=== PATIENT | male | born 1970 | race Caucasian/White ===

== ENCOUNTER 2020-04-11 23:54 | Emergency (ER) | payer OTHER ==
[~2020-04-11] VITALS: Ht 177.8 cm; Wt 95.2 kg
--- OUTSIDE RECORDS SUMMARY | ~2020-04-11 | XMS | Encounter Summary ---
Demographics + + + | Address | [address] | | | [place] [address] | + + + | Home Phone | | + + + | Preferred Language | Unknown | + + + | Marital Status | Single | + + + | Nondenominational Affiliation | UNK | + + + | Race | White | + + + | Ethnic Group | Not or | + + + Author + + + | Author | [facility] | + + + | Organization | [facility] | + + + | Address | Unknown | + + + | Phone | Unavailable | + + + Care Team Providers + +------+ + | Care Director Of Hotel Name | Role | Phone | + +------+ + | No Pcp Per Patient | PCP | Unavailable | + +------+ + Encounter Details +--------+ + + + + | Date | Type | Department | Care Team | Description | +--------+ + + + + | 07/25/ | Procedure | Dermatology | | | | 2008 | | Phototherapy at [facility] | | | | | | [address] | | | | | | [facility] | | | | | | and Healing, | | | | | | Building | | | | | | Floor [place], [place] | | | | | | [address] | | | | | | [phone] | | | +--------+ + + + + Social History + +-------+ +--------+------+ | Tobacco Use | Types | Packs/Day | Years | Date | | | | | Used | | + +-------+ +--------+------+ | Never Assessed | | | | | + +-------+ +--------+------+ + + + | Sex Assigned at | Date Recorded | | | | + + + | Not on file | | + + + documented as of this encounter Progress Robert Yanes Cna, Keri - 07/25/2008 4:01 PM PSTFormatting of this note might be different f rom the original. PHOTOTHERAPY DOC FLOWSHEET RESPONSES [[id number]][ 07/25/2008 Orientation Time 3:56 PM MD Orders 06/09/08 Start NBUVB @ 75mj increase 50mj each treatment to a maximum of 1000mj. Two times a week apply sunscreen to face per Dr. Zaragoza Ttl # of Treatments 11 DIAGNOSIS psoriasis Site #1 body Type NBUVB Prescr Dose 525mj Actual Dose 527mj Predict Time 1:46 Actual Time 1:15 On Stool none New Meds no Sleep OK YES Psoralen Taken? n/a PUVA Med Nausea NA - NOT APPLICABLE Erythema Grade 0 Blisters NO Itching NO Pain 0 MD Notified NA - NO REACTION Goggles YES Oral/Topical Meds NO Suntan Lotion face Shield none Nurse dds Nurse #2 Comments documented in this encounter Plan of Treatment Not on filedocumented as of this encounter Visit Diagnoses + + | Diagnosis | + + | Other psoriasis | + + documented in this encounter"
--- OUTSIDE RECORDS SUMMARY | ~2020-04-11 | XMS | Encounter Summary ---
Demographics + + + | Address | [address] | | | [place] [address] | + + + | Home Phone | | + + + | Preferred Language | Unknown | + + + | Marital Status | Single | + + + | Islam Affiliation | UNK | + + + | Race | White | + + + | Ethnic Group | Not or | + + + Author + + + | Author | [facility] | + + + | Organization | [facility] | + + + | Address | Unknown | + + + | Phone | Unavailable | + + + Care Team Providers + +------+ + | Care Advertising Traffic Manager Name | Role | Phone | + +------+ + | No Pcp Per Patient | PCP | Unavailable | + +------+ + Reason for Visit + +--------+ + | Reason | Onset | Comments | | | Date | | + +--------+ + | Phototherapy | 10/18/ | NBUVB | | | 2010 | | + +--------+ + Encounter Details +--------+ + + + + | Date | Type | Department | Care Team | Description | +--------+ + + + + | 10/18/ | Procedure | Dermatology | Yuniel Fierro, | Phototherapy (NBUVB) | | 2010 | | Phototherapy at [facility] | ,PhD Juan | | | | | [address] | Allergy Asthma | | | | | [facility] | Dermatology [address] | | | | | and Healing, | [facility] | | | | | | [place] [address] | | | | | [place], [place] | [phone] | | | | | [address] | | | | | | [phone] | | | +--------+ + + + + Social History + +-------+ +--------+------+ | Tobacco Use | Types | Packs/Day | Years | Date | | | | | Used | | + +-------+ +--------+------+ | Never Smoker | | | | | + +-------+ +--------+------+ + +---+---+---+ | Smokeless Tobacco: | | | | | Former User | | | | + +---+---+---+ + + +---------+ + | Alcohol Use | Drinks/Week | oz/Week | Comments | + + +---------+ + | Not Asked | | | | + + +---------+ + + + + | Sex Assigned at | Date Recorded | | | | + + + | Not on file | | + + + documented as of this encounter Progress Adeline Shultz MA - 10/18/2010 8:14 AM PDTPhototherapy Visit Record: Phototherapy Orientation: NO Time of Treatment: 0757 Physician Orders: 09/03/10 start NBUVB @ 400mj increase 50mj each tx to a maximum of 1000mj. Sunscreen on face and pt stand on stool per Dr. Zaragoza Total # of Treatments: 73 DIAGNOSIS: psoriasis Treatment Site #1: body Phototherapy Type: NBUVB Prescr Dose(j or mj)_ _._ _ _: 1000mj Actual Dose(j or mj)_ _._ _ _: 1002mj Predicted Time (min:sec): 4:07mins Actual Time (min:sec): 2:28min Dosage on stool: 1005mj Additional Information: New meds since last visit: no Sleep OK after treat: YES Psoralen oral/topical med taken?: n/a PUVA med nausea: NA - NOT APPLICABLE Erythema Grade After Last Treatment: No erythema Pt c/o blisters after last treat: NO Pt c/o itching after last treat: NO Pain assess after last treat: 0 MD notified of adverse reaction: NA - NO REACTION Goggles in use: YES Oral/topical meds taken: NO Sunscreen applied: face Shield placed over sites: Patient may shield with brown bag over head instead of sunscreen Nurse: Dev documented in this e ncounter Plan of Treatment Not on filedocumented as of this encounter Procedures + +--------+ + + + | Procedure Name | Priori | Date/Time | Associated Diagnosis | Comments | | | ty | | | | + +--------+ + + + | PHOTOTHERAPY (UVA, | Routin | 10/18/2010 | Psoriasis | | | UVB, NBUVB) - BACK | e | | | | | OFFICE | | | | | + +--------+ + + + documented in this encounter Visit Diagnoses + + | Diagnosis | + + | Psoriasis Other psoriasis | + + documented in this encounter"
--- OUTSIDE RECORDS SUMMARY | ~2020-04-11 | XMS | Encounter Summary ---
Demographics + + + | Address | [address] | | | [place] [address] | + + + | Home Phone | | + + + | Preferred Language | Unknown | + + + | Marital Status | Single | + + + | Protestant Affiliation | UNK | + + + | Race | White | + + + | Ethnic Group | Not or | + + + Author + + + | Author | [facility] | + + + | Organization | [facility] | + + + | Address | Unknown | + + + | Phone | Unavailable | + + + Care Team Providers + +------+ + | Care Nuclear Technician Name | Role | Phone | + +------+ + | No Pcp Per Patient | PCP | Unavailable | + +------+ + Reason for Visit + +--------+ + | Reason | Onset | Comments | | | Date | | + +--------+ + | Prior Authorization | 06/19/ | Clobex | | Request | 2007 | | + +--------+ + Encounter Details +--------+ + + + + | Date | Type | Department | Care Team | Description | +--------+ + + + + | 06/19/ | Telephone | Dermatology | Jeyson Zaragoza, | Prior Authorization | | 2007 | | Medical at [facility] [address] | MD | Request (Clobex ) | | | | [facility] | | | | | | for Health and | | | | | | [facility], [address], | | | | | | 16th Floor | | | | | | [place], [place] | | | | | | [address] | | | | | | [phone] | | | +--------+ + + + [...] + + documented as of this encounter Miscellaneous Notes Telephone Encounter - Lakisha Isidro - 06/19/2008 3:55 PM PSTPa response routed to Dr. Zaragoza Rx: Clobex Approved Telephone Encounter - Mary Black - 06/19/2008 1:25 PM PSTPA response recv'd via fax Drug: Clobex *fax rtd to naldo inluis manuel documented in this encounter Plan of Treatment Not on filedocumented as of this encounter Visit Diagnoses Not on filedocumented in this encounter"
--- OUTSIDE RECORDS SUMMARY | ~2020-04-11 | XMS | Encounter Summary ---
Demographics + + + | Address | [address] | | | [place] [address] | + + + | Home Phone | | + + + | Preferred Language | Unknown | + + + | Marital Status | Single | + + + | Taoism Affiliation | UNK | + + + | Race | White | + + + | Ethnic Group | Not or | + + + Author + + + | Author | [facility] | + + + | Organization | [facility] | + + + | Address | Unknown | + + + | Phone | Unavailable | + + + Care Team Providers + +------+ + | Care Heel Washer Stringing Machine Operator Name | Role | Phone | + +------+ + | No Pcp Per Patient | PCP | Unavailable | + +------+ + Reason for Visit + + + | Reason | Comments | + + + | Phototherapy | NBUVB Oreintation | + + + Encounter Details +--------+---------+ + + + | Date | Type | Department | Care Team | Description | +--------+---------+ + + + | 06/12/ | Office | Dermatology | | Other Psoriasis | | 2007 | Visit | Phototherapy at [facility] | | (Primary Dx) | | | | [address] | | | | | | [facility] | | | | | | and Healing, | | | | | | Building | | | | | | Floor [place], [place] | | | | | | [address] | | | | | | [phone] | | | +--------+---------+ + + + Social History + +-------+ [...] + documented as of this encounter Progress Notes Giselle Ro - 06/12/2008 2:23 PM PSTFormatting of this note might be different fro m the original. Patient/Family Readiness to Learn: The following pertains to: patient. Accurately explains reasons for visit and accurately relates medical history: yes. Accurately describes the likely alteration in self-care routines/abilities resulting from t reatment: yes. Able to provide names and reasons for taking current medications and dosages: yes. Able to follow proposed treatment plan for diet, activity and/or medication without difficu lty: yes. Learning Needs: stable Reviewed Prescriptions:Phototherapy Treatment History: MTX and STEROIDS Muscle Strength Deficits:no Chronic Conditions:none Phototherapy in Past:NBUVB Medications/OTC:Topical: Clobex Physical/Sensory Issues:none Barriers: None identified. Referral To: No referral required. Preferred Learning Method: Verbal , Written and Visual/demonstration. Teaching: Care instructions reviewed: yes, Medication regimen reviewed: yes, Written instru ctions given and explained: yes and Demonstrated procedure: yes. Patient/Family Response to Teaching: Verbalizes understanding of information/instructions given: Yes. Demonstrates ability to perform required procedure: Yes. Additional Notes: Patient chose to wait and see how phototherapy worked before starting enbrel. Will re-asse ss at apt with Dr. Zaragoza PHOTOTHERAPY DOC FLOWSHEET RESPONSES [[id number]][ 06/12/2008 Orientation YES Time 1:56 PM MD Orders 06/09/08 Start NBUVB @ 75mj increase 50mj each treatment to a maximum of 1000mj. Two times a week apply sunscreen to face per Dr. Zaragoza Ttl # of Treatments 1 DIAGNOSIS Psoriasis Site #1 Body Type NBUVB Prescr Dose 75mj Actual Dose 79mj Predict Time 0:14sec Actual Time 0:12sec On Stool none Psoralen Taken? NA PUVA Med Nausea NA - NOT APPLICABLE MD Notified NA - NO REACTION Goggles YES Oral/Topical Meds NO Suntan Lotion face Shield none Nurse [email or web address] documented in this en counter Miscellaneous Notes Scan - Other, Faculty - 08/20/2008 3:14 PM PST can - Nicolasa, Faculty - 08/20/2008 3:14 PM PST Electronica lly signed by Linda Corbin In at 08/20/2008 3:14 PM PSTScan - Nicolasa, Faculty - 08/20 3:14 PM PST P STdocumented in this encounter Plan of Treatment Not on filedocumented as of this encounter Visit Diagnoses + + | Diagnosis | + + | Other psoriasis - Primary | + + documented in this encounter"
--- OUTSIDE RECORDS SUMMARY | ~2020-04-11 | XMS | Encounter Summary ---
Demographics + + + | Address | [address] | | | [place] [address] | + + + | Home Phone | | + + + | Preferred Language | Unknown | + + + | Marital Status | Single | + + + | Pentecostalism Affiliation | UNK | + + + | Race | White | + + + | Ethnic Group | Not or | + + + Author + + + | Author | [facility] | + + + | Organization | [facility] | + + + | Address | Unknown | + + + | Phone | Unavailable | + + + Care Team Providers + +------+ + | Care Gravedigger Name | Role | Phone | + +------+ + | No Pcp Per Patient | PCP | Unavailable | + +------+ + Reason for Visit + +--------+ + | Reason | Onset | Comments | | | Date | | + +--------+ + | Phototherapy | 09/03/ | NBUVB | | | 2010 | | + +--------+ + Encounter Details +--------+ + + + + | Date | Type | Department | Care Team | Description | +--------+ + + + + | 09/03/ | Procedure | Dermatology | Jeyson Zaragoza, | Phototherapy (NBUVB) | | 2010 | | Phototherapy at [facility] | | | | | | [address] | | | | | | [facility] | | | | | | and Healing, | | | | | | | | | | | | [place], [place] | | | | | | [address] | | | | | | [phone] | | | +--------+ + + + [...] documented as of this encounter Progress Notes Adeline Pacheco MA - 09/03/2010 1:32 PM PSTPhototherapy Visit Record: Additional Information: Phototherapy Visit Record: Phototherapy Orientation: NO Time of Treatment: 1338 Physician Orders: 09/03/10 start NBUVB @ 400mj increase 50mj each tx to a maximum of 1000mj. Sunscreen on face and pt stand on stool per Dr. Zaragoza Total # of Treatments: 60 DIAGNOSIS: psoriasis Treatment Site #1: body Phototherapy Type: NBUVB Prescr Dose(j or mj)_ _._ _ _: 400mj Actual Dose(j or mj)_ _._ _ _: 403mj Predicted Time (min:sec): 1:34min Actual Time (min:sec): 1:04min Dosage on stool: 403mj Additional Information: New meds since last visit: [...] Sunscreen applied: face Shield placed over sites: none Nurse: ramses ureña Comments: New orders pt to stand on stool documented in this e ncounter Plan of Treatment Not on filedocumented as of this encounter Procedures + +--------+ + + + | Procedure Name | Priori | Date/Time | Associated Diagnosis | Comments | | | ty | | | | + +--------+ + + + | PHOTOTHERAPY (UVA, | Routin | 09/03/2010 | Psoriasis | | | UVB, NBUVB) - BACK | e | | | | | OFFICE | | | | | + +--------+ + + + documented in this encounter Visit Diagnoses + + | Diagnosis | + + | Psoriasis - Primary Other psoriasis | + + documented in this encounter"
--- OUTSIDE RECORDS SUMMARY | ~2020-04-11 | XMS | Encounter Summary ---
Demographics + + + | Address | [address] | | | [place] [address] | + + + | Home Phone [...] Author + + + | Author | [facility] | + + + | Organization | [facility] | + + + | Address | Unknown | + + + | Phone | Unavailable | + + + Care Team Providers + +------+ + | Care Lace Inspector Name | Role | Phone | + +------+ + | No Pcp Per Patient | PCP | Unavailable | + +------+ + Reason for Visit + + + | Reason | Comments | + + + | Phototherapy | NBUVB | + + + Encounter Details +--------+ + + + + | Date | Type | Department | Care Team | Description | +--------+ + + + + | 06/30/ | Procedure | Dermatology | | Phototherapy (NBUVB) | | 2007 | | Phototherapy at [facility] | | | | | | [address] | | | | | | [facility] | | | | | | and Healing, | | | | | | Building | | | | | | Floor [place], [place] | | | | | | [address] | | | | | | [phone] | | | +--------+ + + + [...] this encounter Progress Notes Giselle Ro - 06/30/2008 4:40 PM PSTFormatting of this note might be different fro m the original. PHOTOTHERAPY DOC FLOWSHEET RESPONSES [[id number]][ 06/30/2008 Orientation YES Time 4:11 PM MD Orders 06/09/08 Start NBUVB @ 75mj increase 50mj each treatment to a maximum of 1000mj. Two times a week apply sunscreen to face per Dr. Zaragoza Ttl # of Treatments 4 DIAGNOSIS psoriasis Site #1 body Type NBUVB Prescr Dose 175mj Actual Dose 177mj Predict Time 0:34sec Actual Time 0:25sec On Stool none New Meds no Sleep OK YES Psoralen Taken? n/a PUVA Med Nausea NA - NOT APPLICABLE Erythema Grade 0 Blisters NO Itching NO Pain 0 MD Notified NA - NO REACTION Goggles YES Oral/Topical Meds NO Suntan Lotion face Shield none Nurse Keiko RUSSELL Comments Patient missed 11 days held dose per protocol PHOTOTHERAPY DOC FLOWSHEET RESPONSES [[id number]][ 06/19/2008 Orientation Time 4:10 PM MD Orders 06/09/08 Start NBUVB @ 75mj increase 50mj each treatment to a maximum of 1000mj. Two times a week apply sunscreen to face per Dr. Zaragoza Ttl # of Treatments 3 DIAGNOSIS psoriasis Site #1 body Type NBUVB Prescr Dose 175mj Actual Dose 180mj Predict Time 0:34 Actual Time 0:25 On Stool none New Meds no Sleep OK YES Psoralen Taken? n/a PUVA Med Nausea NA - NOT APPLICABLE Erythema Grade 0 Blisters NO Itching NO Pain 0 MD Notified NA - NO REACTION Goggles YES Oral/Topical Meds NO Suntan Lotion face Shield none Nurse dds Comments documented in this en counter Plan of Treatment Not on filedocumented as of this encounter Visit Diagnoses + + | Diagnosis | + + | Other psoriasis | + + documented in this encounter"
--- OUTSIDE RECORDS SUMMARY | ~2020-04-11 | XMS | Encounter Summary ---
Demographics + + + | Address | [address] | | | [place] [address] | + + + | Home Phone | | + + + | Preferred Language | Unknown | + + + | Marital Status | Single | + + + | Restoration Affiliation | UNK | + + + | Race | White | + + + | Ethnic Group | Not or | + + + Author + + + | Author | [facility] | + + + | Organization | [facility] | + + + | Address | Unknown | + + + | Phone | Unavailable | + + + Care Team Providers + +------+ + | Care Corporate Security Manager Name | Role | Phone | + +------+ + | No Pcp Per Patient | PCP | Unavailable | + +------+ + Reason for Visit + +--------+ + | Reason | Onset | Comments | | | Date | | + +--------+ + | Phototherapy | 09/17/ | NBUVB | | | 2010 | | + +--------+ + Encounter Details +--------+ + + + + | Date | Type | Department | Care Team | Description | +--------+ + + + + | 09/17/ | Procedure | Dermatology | Tod Maxwell MD | Phototherapy (NBUVB) | | 2010 | | Phototherapy at [facility] | [address] | | | | | [address] | [place], [place] | | | | | [facility] | [address] | | | | | and Healing, | [phone] | | | | | | | | | | | Floor [place], [place] | | | | | | [address] | | | | | | [phone] | | | +--------+ + + + [...] + documented as of this encounter Progress Lakisha Carroll - 09/17/2010 7:58 AM PDTPhototherapy Visit Record: Phototherapy Orientation: NO Time of Treatment: 0746 Physician Orders: 09/03/10 start NBUVB @ 400mj increase 50mj each tx to a maximum of 1000mj. Sunscreen on face and pt stand on stool per Dr. Zaragoza Total # of Treatments: 66 DIAGNOSIS: psoriasis Treatment Site #1: body Phototherapy Type: NBUVB Prescr Dose(j or mj)_ _._ _ _: 700mj Actual Dose(j or mj)_ _._ _ _: 705mj Predicted Time (min:sec): 2:50mins Actual Time (min:sec): 1;43mins Dosage on stool: 705mj Additional Information: New meds since last visit: [...] face Shield placed over sites: none Nurse: Jeff documented in this enco unter Plan of Treatment Not on filedocumented as of this encounter Procedures + +--------+ + + + | Procedure Name | Priori | Date/Time | Associated Diagnosis | Comments | | | ty | | | | + +--------+ + + + | PHOTOTHERAPY (UVA, | Routin | 09/17/2010 | Psoriasis | | | UVB, NBUVB) - BACK | e | | | | | OFFICE | | | | | + +--------+ + + + documented in this encounter Visit Diagnoses + + | Diagnosis | + + | Psoriasis Other psoriasis | + + documented in this encounter"
--- OUTSIDE RECORDS SUMMARY | ~2020-04-11 | XMS | Encounter Summary ---
Demographics + + + | Address | [address] | | | [place] [address] | + + + | Home Phone | | + + + | Preferred Language | Unknown | + + + | Marital Status | Single | + + + | Druze Affiliation | UNK | + + + | Race | White | + + + | Ethnic Group | Not or | + + + Author + + + | Author | [facility] | + + + | Organization | [facility] | + + + | Address | Unknown | + + + | Phone | Unavailable | + + + Care Team Providers + +------+ + | Care Sas Programmer Analyst Name | Role | Phone | + +------+ + | No Pcp Per Patient | PCP | Unavailable | + +------+ + Reason for Visit + +--------+ + | Reason | Onset | Comments | | | Date | | + +--------+ + | Phototherapy | 09/08/ | NBUVB | | | 2010 | | + +--------+ + Encounter Details +--------+ + + + + | Date | Type | Department | Care Team | Description | +--------+ + + + + | 09/08/ | Procedure | Dermatology | | Phototherapy (NBUVB) | | 2010 | | Phototherapy at [facility] | | | | | | [address] | | | | | | [facility] | | | | | | and Healing, | | | | | | [facility] | | | | | | Floor [place], [place] | | | | | | [address] | | | | | | [phone] | | | +--------+ + + + [...] encounter Progress Notes Adeline Pacheco MA - 09/08/2010 8:03 AM PSTPhototherapy Visit Record: Phototherapy Orientation: NO Time of Treatment: 0756 Physician Orders: 09/03/10 start NBUVB @ 400mj increase 50mj each tx to a maximum of 1000mj. Sunscreen on face and pt stand on stool per Dr. Zaragoza Total # of Treatments: 62 DIAGNOSIS: psoriasis Treatment Site #1: body Phototherapy Type: NBUVB Prescr Dose(j or mj)_ _._ _ _: 500mj Actual Dose(j or mj)_ _._ _ _: 507mj Predicted Time (min:sec): 1:57min Actual Time (min:sec): 1:17min Dosage on stool: 507mj Additional Information: New meds since last visit: [...] placed over sites: none Nurse: ramses ureña documented in this e ncounter Plan of Treatment Not on filedocumented as of this encounter Procedures + +--------+ + + + | Procedure Name | Priori | Date/Time | Associated Diagnosis | Comments | | | ty | | | | + +--------+ + + + | PHOTOTHERAPY (UVA, | Routin | 09/08/2010 | Psoriasis | | | UVB, NBUVB) - BACK | e | | | | | OFFICE | | | | | + +--------+ + + + documented in this encounter Visit Diagnoses + + | Diagnosis | + + | Psoriasis Other psoriasis | + + documented in this encounter"
--- OUTSIDE RECORDS SUMMARY | ~2020-04-11 | XMS | Encounter Summary ---
Demographics + + + | Address | [address] | | | [place] [address] | + + + | Home Phone | | + + + | Preferred Language | Unknown | + + + | Marital Status | Single | + + + | Confucianist Affiliation | UNK | + + + | Race | White | + + + | Ethnic Group | Not or | + + + Author + + + | Author | [facility] | + + + | Organization | [facility] | + + + | Address | Unknown | + + + | Phone | Unavailable | + + + Care Team Providers + +------+ + | Care Wood Machine Carver Name | Role | Phone | + +------+ + | No Pcp Per Patient | PCP | Unavailable | + +------+ + Reason for Visit + +--------+ + | Reason | Onset | Comments | | | Date | | + +--------+ + | Discussion | 06/05/ | | | | 2007 | | + +--------+ + Encounter Details +--------+ + + + + | Date | Type | Department | Care Team | Description | +--------+ + + + + | 06/05/ | Telephone | Dermatology | Jeyson Zaragoza, | Discussion | | 2007 | | Medical at [facility] [address] | | | | | | [facility] | | | | | | for Health and | | | | | | Healing, [address], | | | | | | 16th Floor | | | | | | [place], [place] | | | | | | [address] | | | | | | [phone] | | | +--------+ + + + [...] this encounter Miscellaneous Notes Telephone Encounter - Juana Oliveira Md - 06/05/2008 6:13 PM PSTCalled and spoke with robb ent. He called his insurance company today; had not yet come to a decision yet. I told him I 'd completed the Enbrel forms yesterday. I'll let him know when we hear any new info. He would like to go ahead with phototherapy while he's waiting for the Enbrel approval. I c ontacted Dr. Zaragoza and will call the patient back after Dr. Zaragoza and I have discussed starting dose, etc. el ephone Encounter - Yashira Rivera - 06/05/2008 12:54 PM PSTPatient, Walt, would like call back to discuss if he can begin light txmnt, while waiting for Enbrel. He also wanted to know the status with pre-auth for this Enbrel. He can be reached at #[phone], detailed vm after 3:30 ok per pt documented in this encounter Plan of Treatment Not on filedocumented as of this encounter Visit Diagnoses Not on filedocumented in this encounter"
--- OUTSIDE RECORDS SUMMARY | ~2020-04-11 | XMS | Encounter Summary ---
Demographics + + + | Address | [address] | | | [place] [address] | + + + | Home Phone | | + + + | Preferred Language | Unknown | + + + | Marital Status | Single | + + + | Jew Affiliation | UNK | + + + [...] Team Providers + +------+ + | Care Internal Medicine Veterinary Technician Name | Role | Phone | [...] | +--------+ + + + + | 11/18/ | Procedure | Dermatology | Ignacio Reed, | Phototherapy (NBUVB) | | 2008 | | Phototherapy at [facility] | MD [address] | | | | | [address] | [place], [place] | | | | | [facility] | [address] | | | | | and Tariq, | [phone] | | | | | | | | | | | [place], [place] | | | | | | [address] | | | | | | [phone] | | | +--------+ + + + [...] documented as of this encounter Progress Notes Brandin Lundberg - 11/18/2008 4:42 PM PDT PHOTOTHERAPY DOC FLOWSHEET RESPONSES [[id number]][ 11/18/2008 Orientation NO Time 4:32 PM Orders [id number] Start NBUVB @ 1000mj & increase by 25mj each treatment to a maximum of 140 0mj. Cover genitials & sunscreen to face two times a week per Dr. Washington Zaragoza Ttl # of Treatments 40 DIAGNOSIS psoriasis Site #1 body Type NBUVB Prescr Dose 1100mj Actual Dose 1105mj Predict Time 4:41min Actual Time 3:03min On Stool none New Meds no Sleep OK YES Psoralen Taken? n/a PUVA Med Nausea NA - NOT APPLICABLE Erythema Grade 0 Blisters NO Itching NO Pain 0 MD Notified NA - NO REACTION Goggles YES Oral/Topical Meds NO Suntan Lotion face Shield none Nurse Nurse #2 Comments PHOTOTHERAPY DOC FLOWSHEET RESPONSES [[id number]][ 11/13/2008 Orientation NO Time 3:53 PM Orders [id number] Start NBUVB @ 1000mj & increase by 25mj each treatment to a maximum of 140 0mj. Cover genitials & sunscreen to face two times a week per Dr. [place] Zaragoza Ttl # of Treatments 39 DIAGNOSIS psoriasis Site #1 body Type NBUVB Prescr Dose 1075mj Actual Dose 1076mj Predict Time 4:34min Actual Time 2:46min On Stool none New Meds no Sleep OK YES Psoralen Taken? n/a PUVA Med Nausea NA - NOT APPLICABLE Erythema Grade 0 Blisters NO Itching NO Pain 0 MD Notified NA - NO REACTION Goggles YES Oral/Topical Meds NO Suntan Lotion face Shield none Nurse Nurse #2 Comments documented in this encount er Plan of Treatment Not on filedocumented as of this encounter Visit Diagnoses + + | Diagnosis | + + | Other psoriasis | + + documented in this encounter"
--- OUTSIDE RECORDS SUMMARY | ~2020-04-11 | XMS | Encounter Summary ---
Demographics + + + | Address | [address] | | | [place] [address] | + + + | Home Phone | | + + + | Preferred Language | Unknown | + + + | Marital Status | Single | + + + | Anabaptist Affiliation | UNK | + + + | Race | White | + + + | Ethnic Group | Not or | + + + Author + + + | Author | [facility] | + + + | Organization | [facility] | + + + | Address | Unknown | + + + | Phone | Unavailable | + + + Care Team Providers + +------+ + | Care Safety Admin Assistant Name | Role | Phone | + [...] | +--------+ + + + + | 09/23/ | Procedure | Dermatology | Ignacio Reed, | Phototherapy (NBUVB) | | 2008 | | Phototherapy at [facility] | MD [address] | | | | | [address] | [place], [place] | | | | | [facility] | [address] | | | | | and Tariq, | [phone] | | | | | [facility] | | | | | | [place], [place] | | | | | | [address] | | | | | | [phone] | | | +--------+ + + + [...] this encounter Progress Notes Brandin Lundberg - 09/23/2008 4:21 PM PDT PHOTOTHERAPY DOC FLOWSHEET RESPONSES [[id number]][ 09/23/2008 Orientation NO Time 4:13 PM MD Orders 06/09/08 Start NBUVB @ 75mj increase 50mj each treatment to a maximum of 1000mj. Two times a week apply sunscreen to face per Dr. Zaragoza Ttl # of Treatments 27 DIAGNOSIS psoriasis Site #1 body Type NBUVB Prescr Dose 1000mj Actual Dose 1001mj Predict Time 3:46min Actual Time 2:38min On Stool none New Meds no Sleep OK YES Psoralen Taken? n/a PUVA Med Nausea NA - NOT APPLICABLE Erythema Grade 0 Blisters NO Itching NO Pain 0 MD Notified NA - NO REACTION Goggles YES Oral/Topical Meds NO Suntan Lotion face Shield none Nurse MD Nurse #2 Comments PHOTOTHERAPY DOC FLOWSHEET RESPONSES [[id number]][ 09/19/2008 Orientation NO Time 4:25 PM MD Orders 06/09/08 Start NBUVB @ 75mj increase 50mj each treatment to a maximum of 1000mj. Two times a week apply sunscreen to face per Dr. Zaragoza Ttl # of Treatments 26 DIAGNOSIS psoriasis Site #1 body Type NBUVB Prescr Dose 1000mj Actual Dose 1002mj Predict Time 3:46min Actual Time 2:15min On Stool none New Meds no Sleep OK YES Psoralen Taken? n/a PUVA Med Nausea NA - NOT APPLICABLE Erythema Grade 0 Blisters NO Itching NO Pain 0 MD Notified NA - NO REACTION Goggles YES Oral/Topical Meds NO Suntan Lotion face Shield none Nurse MD Nurse #2 Comments documented in this encount er Plan of Treatment Not on filedocumented as of this encounter Visit Diagnoses + + | Diagnosis | + + | Other psoriasis | + + documented in this encounter"
--- OUTSIDE RECORDS SUMMARY | ~2020-04-11 | XMS | Encounter Summary ---
Demographics + + + | Address | [address] | | | [place] [address] | + + + | Home Phone | | + + + | Preferred Language | Unknown | + + + | Marital Status | Single | + + + | Buddhism Affiliation | UNK | + + + | Race | White | + + + | Ethnic Group | Not or | + + + Author + + + | Author | [facility] | + + + | Organization | [facility] | + + + | Address | Unknown | + + + | Phone | Unavailable | + + + Care Team Providers + +------+ + | Care Membership Advisor Name | Role | Phone | + +------+ + | No Pcp Per Patient | PCP | Unavailable | + +------+ + Reason for Referral Consultation (Routine) +--------+--------+ + + + + | Status | Reason | Specialty | Diagnoses / | Referred By | Referred To | | | | | Procedures | Contact | Contact | +--------+--------+ + + + + | Closed | | Rheumatology | Diagnoses | Nik, | Urban, | | | | | Other | MD Jeyson | MD Valerie | | | | | psoriasis | [address] | [address] | | | | | Procedures | [address] | [address] [place] | | | | | CONSULT TO | [place], [place] | [place], | | | | | RHEUMATOLOGY | [address] | [place] | | | | | [facility] | | [address] | | | | | referral | | Phone: | | | | | | | [phone] | | | | | | | Fax: | | | | | | | [phone] | +--------+--------+ + + + + Reason for Visit + + + | Reason | Comments | + + + | Psoriasis | | + + + Encounter Details +--------+---------+ + + + | Date | Type | Department | Care Team | Description | +--------+---------+ + + + | 06/02/ | Office | Dermatology | Jeyosn Zaragoza, | Other Psoriasis | | 2007 | Visit | Medical at [facility] [address] | MD | (Primary Dx); | | | | [facility] | | Encounter for | | | | for Health and | | Long-Term (Current) | | | | Healing, Building [address], | | Use of Other | | | | 16th Floor | | Medications; | | | | [place], [place] | | Arthralgia | | | | [address] | | | | | | [phone] | | | +--------+---------+ + + + [...] + + documented as of this encounter Last Filed Vital Signs + + + + + | Vital Sign | Reading | Time Taken | Comments | + + + + + | Blood Pressure | 124/82 | 06/02/2008 8:27 AM | | | | | PST | | + + + + + | Pulse | 84 | 06/02/2008 8:27 AM | | | | | PST | | + + + + + | Temperature | - | - | | + + + + + | Respiratory Rate | 14 | 06/02/2008 8:27 AM | | | | | PST | | + + + + + | Oxygen Saturation | - | - | | + + + + + | Inhaled Oxygen | - | - | | | Concentration | | | | + + + + + | Weight | 89.9 kg (198 lb 1.6 | 06/02/2008 8:27 AM | | | | oz) | PST | | + + + + + | Height | 182.2 cm (5' 11.75") | 06/02/2008 8:27 AM | | | | | PST | | + + + + + | Body Mass Index | 27.05 | 06/02/2008 8:27 AM | | | | | PST | | + + + + + documented in this encounter Progress Notes Jeyson Zaragoza - 06/02/2008 3:07 PM PSTI have edited and agree with the resident's note. I spent 45 minutes talking to the patient, examining the patient, and going over the treat ment plan. Jeyson Zaragoza M.D. Professor, Department of Dermatology Research Director, [facility] Juana Lara Md - 07/2007 9:34 AM [facility] P[facility] ([facility] REFERRING PROVIDER: None (self) CHIEF COMPLAINT: Psoriasis HISTORY OF PRESENT ILLNESS: The [facility] questionnaire was reviewed with the patient. Walt Cerna is a 37 y.o . male with a history of psoriasis for 35 years. As a toddler, he had involvement of his sc alp and received light therapy, and during his childhood and adolescence he had persistent k nee plaques. In his early 20's, he developed plaques on his elbows, and in his late 20's he started getting Kenalog injections intralesionally. Four to 5 years ago, he started going t o tanning beds 3 times weekly; stopped this 1 year ago. He started taking MTX at age 27, ad vanced up to 25 mg weekly and had nearly 100% clearance for 7 years; had a liver biopsy roug samir 2 years ago, which was normal. Winter time is when his psoriasis is at its worst and st ress is a significant exacerbating factor. Sees Dr. Jeyson Magallon in [place]. He has bee n on numerous topical therapies in the past, including corticosteroids, Dovonex, and Tazorac . For the last 1 year, his psoriasis has been steadily worsening despite the MTX; topped ta santino MTX 2 months ago because it stopped working and he was frustrated with the bi-monthly b lood draws. For the past 6 months, he's been using only topical medications without success . Uses betamethasone on his scalp now and some other topical steroid on his body. Now has involvement of knees, shoulders, hips, palms. He has gotten information through the mail ab out Enbrel and would like to discuss this medication. The patient reports night time stiffness in the knees; no morning stiffness. Works as a [employer]. He has not seen a cathode builder in the past. He is interested in a more detailed and thorough evaluation for possible psoriatic arthritis. The patient denied any history of depression, bipolar disorder, PTSD, schizophrenia, or psy chiatric hospitalization. The patient reported occasional current alcohol use, and reported that alcohol has not been a problem for him in the past. PAST MEDICAL HISTORY: 1. Psoriasis 2. Mild hypercholesterolemia 3. Shoulder surgery MEDICATIONS: Advil prn ALLERGIES: NKDA FAMILY HISTORY: The patient reports a family history of psoriasis and multiple sclerosis in his father. Erick gregg sees Dr. Zuniga and Dr. Avila, has eczema and uses Protopic. Brother with bipolar dis order and cerebral palsy. SOCIAL HISTORY: The patient reports no smoking, reports 2-3 alcoholic drinks weekly, and works as a [employer]. REVIEW OF SYSTEMS: These were all negative, including no recent history of fevers, chills, sweats, weight loss , or skin complaints other than psoriasis. PHYSICAL EXAMINATION: - a full skin examination was performed, including scalp, face, neck, bilateral upper and l ower extremities, abdomen, chest, back, buttocks, groin, genitalia, hands, and nails, and th e exam was only notable for the following: * scattered well-demarcated erythematous thick scaly plaques, approx. 10% BSA, located on t he face, elbows, knees, anterior and posterior thighs, buttocks, groin, dorsal hands, lower back * 4/10 fingernails with nail pitting and onycholysis * 2/10 toenails with onycholysis - no evidence of joint erythema, edema, or pain - the patient had a normal mood and affect, and was alert and oriented to person, place, an d time ASSESSMENT AND PLAN: Severe psoriasis (10% BSA) with possible psoriatic arthritis - discussed the nature and chronicity of psoriasis - the patient has severe disease and we recommend systemic therapy to clear it - all the various treatment options were discussed, along with all of their possible side e ffects - discussed phototherapy and the fact that the light spectra are more targeted to psoriasis treatment as compared to tanning beds that he's used in the past; this treatment requires f requent office visits - he has been on methotrexate in the past; initially experienced improvement but in recent years did not have good control; total cumulative dose is high, he worries about liver toxi city, and he was never fully satisfied with efficacy of this drug - discussed TNF-alpha inhibitors (etanercept, adalimumab, and infliximab) and their possibl e side effects, the most common of which is increased risk of infection - discussed more rare adverse effects of TNF-alpha inhibitors including lymphoma, multiple sclerosis (discussed this carefully and thoroughly given his family h/o MS), congestive hear t faulure, rare cytopenias, hepatotoxicity, and reactivation of tuberculosis and hepatitis B virus - also discussed modes of administration of TNF-alpha inhibitors (IV versus subcutaneous), dosing schedules (QOW with Humira vs. BIW with Enbrel), and insurance coverage issues - discussed that 70% of patients clear with Humira, versus 50% of patients with Enbrel; how ever safety profile of Enbrel may be slightly better - CBC with diff, LFTs, hepatitis profile, PPD today - if insurance covers treatment and if all pre-screen labs are OK, patient prefers to start on Enbrel BIW - ordered Enbrel 50 mg SC BIW (3 mo supply) today; encouraged patient to call pharmacy for obtaining prior auth - Tgel or Tsal shampoo for scalp - switch all topicals to Clobex spray - refer to [facility] cathode builder, Dr. Duggan, to rule out psoriatic arthritis - no referral to [facility] psychologist needed at this time - [facility] educational materials were given to the patient RTC: 48 hours (06/04) for PPD read, then 4-6 weeks for f/u Juana Oliveira MD Resident, [facility] Dept of Dermatology documented in this encou nter Miscellaneous Notes Scan - Other, Faculty - 07/28/2008 10:41 PM PST can - Other, Faculty - 07/11/2008 1:27 PM PST Electronica lly signed by Linda Corbin In at 07/11/2008 1:27 PM PSTdocumented in this encounter Plan of Treatment Not on filedocumented as of this encounter Procedures + +--------+ + + + | Procedure Name | Priori | Date/Time | Associated Diagnosis | Comments | | | ty | | | | + +--------+ + + + | STAFF TO GIVE: PPD | Routin | 06/02/2008 | Encounter for | Results for this | | | e | 10:11 AM | Long-Term (Current) | procedure are in the | | | | PST | Use of Other | results section. | | | | | Medications | | + +--------+ + + + documented in this encounter Results STAFF TO GIVE: PPD (06/02/2008 10:11 AM PST) + + + + + + | Component | Value | Ref Range | Performed | Pathologist | | | | | At | Signature | + + + + + + | PPD RESULT | negative | mm | [facility] | | + + + + + + + + | Specimen | + + | Arm | + + + + + + + | Performing | Address | City/State/Zipcode | Phone Number | | Organization | | | | + + + + + | [facility] | | | | + + + + + | [facility] | [facility] | | | + + + + + HEPATITIS C AB, SERUM (06/02/2008 9:53 AM PST) + + + + + + | Component | Value | Ref Range | Performed | Pathologist | | | | | At | Signature | + + + + + + | HEPATITIS C | NegativeComment: | Negative | | | | AB | Test performed by [facility] | | | | | | [facility] | | | | | | [facility]. | | | | + + + + + + + + | Specimen | + + | Blood - Blood | + + + + + + + | Performing | Address | City/State/Zipcode | Phone Number | | Organization | | | | + + + + + | [facility] | [address] | [place] [address] | | | LABORATORY | | | | + + + + + HEPATITIS B SURFACE AB QUAL, SERUM (06/02/2008 9:53 AM PST) + + + + + + | Component | Value | Ref Range | Performed | Pathologist | | | | | At | Signature | + + + + + + | HEP B | NegativeComment: | Negative | | | | SURFACE AB | Test performed by [facility] | | | | | QUAL, SERUM | [facility] | | | | | | Laboratories. | | | | + + + + + + + + | Specimen | + + | Blood - Blood | + + + + + + + | Performing | Address | City/State/Zipcode | Phone Number | | Organization | | | | + + + + + | [facility] | [address] | [place] [address] | | | LABORATORY | | | | + + + + + HEPATITIS B SURFACE AG, SERUM (06/02/2008 9:53 AM PST) + + + + + + | Component | Value | Ref Range | Performed | Pathologist | | | | | At | Signature | + + + + + + | HEPATITIS B | NegativeComment: | Negative | | | | SURFACE | Test performed by [facility] | | | | | AG, SERUM | [facility] | | | | | | Laboratories. | | | | + + + + + + + + | Specimen | + + | Blood - Blood | + + + + + | Narrative | Performed At | + + + | [facility] | | | [place] [address] | | | [place] [address] | | + + + + + + + + | Performing | Address | City/State/Zipcode | Phone Number | | Organization | | | | + + + + + | [facility] | [address] | [place] [address] | | | LABORATORY | | | | + + + + + HEPATITIS B CORE AB, SERUM (06/02/2008 9:53 AM PST) + + + + + + | Component | Value | Ref Range | Performed | Pathologist | | | | | At | Signature | + + + + + + | HEPATITIS B | NegativeComment: | Negative | | | | CORE AB, | Test performed by [facility] | | | | | SERUM | [facility] | | | | | | Laboratories. | | | | + + + + + + + + | Specimen | + + | Blood - Blood | + + + + + | Narrative | Performed At | + + + | [facility] | | | [place] [address] | | | [place] [address] | | + + + + + + + + | Performing | Address | City/State/Zipcode | Phone Number | | Organization | | | | + + + + + | [facility] | [address] | [place] [address] | | | LABORATORY | | | | + + + + + HEPATITIS A AB SCREEN, SERUM (06/02/2008 9:53 AM PST) + + + + + + | Component | Value | Ref Range | Performed | Pathologist | | | | | At | Signature | + + + + + + | HEPATITIS A | NegativeComment: | Negative | | | | AB TOTAL | Test performed by [facility] | | | | | | [facility] | | | | | | Laboratories. The | | | | | | test for total antibody | | | | | | to Hepatits A virus | | | | | | tests for both | | | | | | immunoglobulins G and M | | | | | | and is used primarily as | | | | | | an indicatorof | | | | | | past infection and | | | | | | immunity to HAV. When | | | | | | total antibodyresult is | | | | | | positive the | | | | | | Hepatitis A IgM antibody | | | | | | is | | | | | | automaticallyperformed | | | | | | to confirm recent | | | | | | infection. | | | | + + + + + + + + | Specimen | + + | Blood - Blood | + + + + + + + | Performing | Address | City/State/Zipcode | Phone Number | | Organization | | | | + + + + + | [facility] | [address] | [place] [address] | | | LABORATORY | | | | + + + + + COMPLETE METABOLIC SET (NA,K,CL,CO2,BUN,CREAT,GLUC,CA,AST,ALT,BILI TOTAL,ALK PHOS,ALB,PROT TOTAL) (06/02/2008 9:53 AM PST) + +---------+ + + + | Component | Value | Ref Range | Performed | Pathologist | | | | | At | Signature | + +---------+ + + + | GLUCOSE, | 107 (H) | 60 - 99 mg/dL | [facility] | | | PLASMA | | | DEPARTMENT | | | (LAB) | | | OF | | | | | | PATHOLOGY | | + +---------+ + + + | BUN, PLASMA | 12 | 6 - 20 mg/dL | [facility] | | | (LAB) | | | DEPARTMENT | | | | | | OF | | | | | | PATHOLOGY | | + +---------+ + + + | CREATININE | 0.86 | 0.70 - 1.30 | [facility] | | | PLASMA | | mg/dL | DEPARTMENT | | | (LAB) | | | OF | | | | | | PATHOLOGY | | + +---------+ + + + | TOTAL | 7.4 | 6.1 - 7.9 g/dL | [facility] | | | PROTEIN, | | | DEPARTMENT | | | PLASMA | | | OF | | | (LAB) | | | PATHOLOGY | | + +---------+ + + + | ALBUMIN, | 4.1 | 3.5 - 4.7 g/dL | [facility] | | | PLASMA | | | DEPARTMENT | | | (LAB) | | | OF | | | | | | PATHOLOGY | | + +---------+ + + + | CALCIUM, | 9.9 | 8.6 - 10.2 | [facility] | | | PLASMA | | mg/dL | DEPARTMENT | | | (LAB) | | | OF | | | | | | PATHOLOGY | | + +---------+ + + + | BILIRUBIN | 0.9 | 0.3 - 1.2 mg/dL | [facility] | | | TOTAL | | | DEPARTMENT | | | | | | OF | | | | | | PATHOLOGY | | + +---------+ + + + | ALK PHOS | 57 | 53 - 128 U/L | [facility] | | | | | | DEPARTMENT | | | | | | OF | | | | | | PATHOLOGY | | + +---------+ + + + | AST(SGOT) | 38 | 15 - 41 U/L | [facility] | | | | | | DEPARTMENT | | | | | | OF | | | | | | PATHOLOGY | | + +---------+ + + + | SODIUM, | 135 | 134 - 143 | [facility] | | | PLASMA | | mmol/L | DEPARTMENT | | | (LAB) | | | OF | | | | | | PATHOLOGY | | + +---------+ + + + | POTASSIUM, | 3.7 | 3.4 - 5.0 | [facility] | | | PLASMA | | mmol/L | DEPARTMENT | | | (LAB) | | | OF | | | | | | PATHOLOGY | | + +---------+ + + + | CHLORIDE, | 100 | 97 - 108 mmol/L | [facility] | | | PLASMA | | | DEPARTMENT | | | (LAB) | | | OF | | | | | | PATHOLOGY | | + +---------+ + + + | TOTAL CO2, | 27 | 23 - 31 mmol/L | [facility] | | | PLASMA | | | DEPARTMENT | | | (LAB) | | | OF | | | | | | PATHOLOGY | | + +---------+ + + + | ALT (SGPT) | 54 (H) | 13 - 48 U/L | [facility] | | | | | | DEPARTMENT | | | | | | OF | | | | | | PATHOLOGY | | + +---------+ + + + + + | Specimen | + + | Blood - Blood | + + + + + | Narrative | Performed At | + + + | [id number] Estimated GFR > 60 mL/min/1.73 sq m if non- | [facility] | | Guinean [id number] Estimated GFR > 60 mL/min/1.73 sq m if | DEPARTMENT OF | | [place] GFR is estimated using the MDRD equation recommended by | PATHOLOGY | | the National Kidney Disease Education Program. Estimated GFR | | | Interpretive Information: <60 mL/min/1.73 sq m Chronic Kidney | | | Disease <15 mL/mon/1.73 sq m Kidney Failure Estimated GFR | | | greater than 60mL/min/1.73 is of limited clinical Value. The MDRD | | | equation is not valid in the following situations: - Patients under | | | 18 years of age - Severe malnutrition or obesity - Vegetarian diet | | | - Rapidly changing kidney function New Creatinine Reference | | | ranges effective 03/05/08. | | + + + + + + + + | Performing | Address | City/State/Zipcode | Phone Number | | Organization | | | | + + + + + | [facility] | [address] | [place] [address] | | | PATHOLOGY | [address] | | | + + + + + | [facility] | [address] | [place] [address] | | | PATHOLOGY | [address] | | | + + + + + CBC, WITH DIFFERENTIAL (06/02/2008 9:53 AM PST) + + + + + + | Component | Value | Ref Range | Performed | Pathologist | | | | | At | Signature | + + + + + + | WHITE CELL | 6.6 | 4.4 - 11.0 K/cu | [facility] | | | COUNT | | mm | DEPARTMENT | | | | | | OF | | | | | | PATHOLOGY | | + + + + + + | RED CELL | 4.97 | 4.50 - 5.90 | [facility] | | | COUNT | | M/cu mm | DEPARTMENT | | | | | | OF | | | | | | PATHOLOGY | | + + + + + + | HEMOGLOBIN | 15.3 | 13.5 - 17.5 | [facility] | | | | | g/dL | DEPARTMENT | | | | | | OF | | | | | | PATHOLOGY | | + + + + + + | HEMATOCRIT | 43.0 | 41.0 - 53.0 % | [facility] | | | | | | DEPARTMENT | | | | | | OF | | | | | | PATHOLOGY | | + + + + + + | MCV | 86.5 | 80.0 - 96.0 fL | [facility] | | | | | | DEPARTMENT | | | | | | OF | | | | | | PATHOLOGY | | + + + + + + | MCHC | 35.7 (H) | 33.4 - 35.5 | [facility] | | | | | g/dL | DEPARTMENT | | | | | | OF | | | | | | PATHOLOGY | | + + + + + + | RDW | 12.8 | 11.5 - 15.0 % | [facility] | | | | | | DEPARTMENT | | | | | | OF | | | | | | PATHOLOGY | | + + + + + + | PLATELET | 266 | 150 - 400 K/cu | [facility] | | | COUNT | | mm | DEPARTMENT | | | | | | OF | | | | | | PATHOLOGY | | + + + + + + + + | Specimen | + + | Blood - Blood | + + + + + + + | Performing | Address | City/State/Zipcode | Phone Number | | Organization | | | | + + + + + | [facility] | [address] | [place] [address] | | | PATHOLOGY | [address] | | | + + + + + | [facility] | [address] | [place] [address] | | | PATHOLOGY | [address] | | | + + + + + documented in this encounter Visit Diagnoses + + | Diagnosis | + + | Other psoriasis - Primary | + + | Encounter for long-term (current) use of other medications | + + | Arthralgia Pain in joint, site unspecified | + + documented in this encounter
--- OUTSIDE RECORDS SUMMARY | ~2020-04-11 | XMS | Encounter Summary ---
Demographics + + + | Address | [address] | | | [place] [address] | + + + | Home Phone [...] Author + + + | Author | [facility] | + + + | Organization | [facility] | + + + | Address | Unknown | + + + | Phone | Unavailable | + + + Care Team Providers + +------+ + | Care Vault Keeper Name | Role | Phone | + +------+ + | No Pcp Per Patient | PCP | Unavailable | + +------+ + Reason for Visit + +--------+ + | Reason | Onset | Comments | | | Date | | + +--------+ + | Prior Authorization | 06/06/ | clobex | | Request | 2007 | | + +--------+ + | Discussion | 06/09/ | | | | 2008 | | + +--------+ + Encounter Details +--------+ + + + + | Date | Type | Department | Care Team | Description | +--------+ + + + + | 06/06/ | Telephone | Dermatology | Jeyson Zaragoza, | Prior Authorization | | 2007 | | Medical at [facility] [address] | MD | Request (clobex); | | | | [facility] | | Discussion | | | | for Health and | | | | | | Healing, [address], | | | | | | 16th Floor | | | | | | [place], [place] | | | | | | [address] | | | | | | [phone] | | | +--------+ + + + [...] Telephone Encounter - Juana Oliveira Md - 06/11/2008 5:25 PM PSTSpoke with Robles nieto PA form to [phone]. P M PSTTelephone Encounter - Anselmo Lovelace - 06/11/2008 4:23 PM [phone] is direct fax line to Shahid. He is with [employer] and still hasn't received fax for Clobex. Is requesting t his be refaxed. elephone Lakisha Da Silva - 06/10/2008 1:51 PM PSTPa faxed to [facility] rx Rx: Clobex elephone Juana Dominguez Md - 06/09/2008 6:22 PM PSTCompleted PA form for Clobex, placed in box to be faxed. Also completed PA form for Enbrel and put in box to be faxed. Called patient on his home number and cell number and left messages on both. Dr. Zaragoza would like to start NBUVB: Start at 75 mJ/cm2. Up by 50 mJ/cm2 per treatment. Max of 1000 mJ/cm2. 2x per week. I put the order in. elephone Encounter - Yashira Ford - 06/09/2008 12:47 PM PSTPatient called to make sure we've sent in a prio r auth for a clobetasol (CLOBEX) 0.05 % Topical [place], Non-Aerosol. Pharm has not recv'd an y info re. Also, pt interested in more information re: phototherapy. Please call pt at [phone]. Thank you elephone Lakisha Gasca - 06/09/2008 9:06 AM PSTPa form routed to Dr. Parrish more inf o needed Rx: clobex elephone Jacqueline Alvarez - 06/06/2008 3:24 PM PSTPa rengencerx form recvd via fax. Rtd to pa inbo x Rx: clobex documented in this enc ounter Plan of Treatment Not on filedocumented as of this encounter Visit Diagnoses + + | Diagnosis | + + | Other psoriasis - Primary | + + documented in this encounter"
--- OUTSIDE RECORDS SUMMARY | ~2020-04-11 | XMS | Encounter Summary ---
Demographics + + + | Address | [address] | | | [place] [address] | + + + | Home Phone | | + + + | Preferred Language | Unknown | + + + | Marital Status | Single | + + + | Hoahaoism Affiliation | UNK | + + + | Race | White | + + + | Ethnic Group | Not or | + + + Author + + + | Author | [facility] | + + + | Organization | [facility] | + + + | Address | Unknown | + + + | Phone | Unavailable | + + + Care Team Providers + +------+ + | Care Substation Wireman Name | Role | Phone | + [...] | +--------+ + + + + | 09/19/ | Procedure | Dermatology | Nadia De Luna, | Phototherapy (NBUVB) | | 2008 | | Phototherapy at [facility] | MD | | | | | [address] | | | | | | [facility] | | | | | | and [place], | | | | | | [facility] | | | | | | [place], [place] | | | | | | [address] | | | | | | [phone] | | | +--------+ + + + [...] this encounter Progress Notes Brandin Lundberg - 09/19/2008 4:31 PM PDT PHOTOTHERAPY DOC FLOWSHEET RESPONSES [[id number]][ 09/19/2008 Orientation NO Time 4:25 PM MD [...] Nurse #2 Comments PHOTOTHERAPY DOC FLOWSHEET RESPONSES [[id number]][ 09/16/2008 Orientation NO Time 12:56 PM MD Orders 06/09/08 Start NBUVB @ 75mj increase 50mj each treatment to a maximum of 1000mj. Two times a week apply sunscreen to face per Dr. Zaragoza Ttl # of Treatments 25 DIAGNOSIS psoriasis Site #1 body Type NBUVB Prescr Dose 1000mj Actual Dose 1007mj Predict Time 3:46mins Actual Time 2:35mins On Stool none New Meds no Sleep OK YES Psoralen Taken? n/a PUVA Med Nausea NA - NOT APPLICABLE Erythema Grade 0 Blisters NO Itching NO Pain 0 MD Notified NA - NO REACTION Goggles YES Oral/Topical Meds NO Suntan Lotion face Shield none Nurse Gisell,EMBROIDERY CUTTER Nurse #2 Comments documented in this encount er Plan of Treatment Not on filedocumented as of this encounter Visit Diagnoses + + | Diagnosis | + + | Other psoriasis | + + documented in this encounter"
--- OUTSIDE RECORDS SUMMARY | ~2020-04-11 | XMS | Encounter Summary ---
Demographics + + + | Address | [address] | | | [place] [address] | + + + | Home Phone | | + + + | Preferred Language | Unknown | + + + | Marital Status | Single | + + + | Adventism Affiliation | UNK | + + + | Race | White | + + + | Ethnic Group | Not or | + + + Author + + + | Author | [facility] | + + + | Organization | [facility] | + + + | Address | Unknown | + + + | Phone | Unavailable | + + + Care Team Providers + +------+ + | Care Tree Shear Operator Name | Role | Phone | [...] | +--------+ + + + + | 11/25/ | Procedure | Dermatology | Ignacio Reed, | Phototherapy (NBUVB) | | 2009 | | Phototherapy at [facility] | MD [address] | | | | | [address] | [place], [place] | | | | | [facility] | [address] | | | | | and [address], | [phone] | | | | | | | | | | | [place], [place] | | | | | | [address] | | | | | | [phone] | | | +--------+ + + + [...] this encounter Progress Notes Giselle Ro - 11/25/2009 8:31 AM PDTFormatting of this note might be different fro m the original. PHOTOTHERAPY DOC FLOWSHEET RESPONSES [[id number]][ 11/25/2009 Orientation NO Time 7:54 AM MD Orders 10/22/09 Start NBUVB @ 400mj increase 50mj each treatment to a maximum of 1000mj. 3 times per week.Sunscreen on face per Dr. Zaragoza Ttl # of Treatments 52 DIAGNOSIS psoriasis Site #1 body Type NBUVB Prescr Dose 800mj Actual Dose 801mj Predict Time 4:10mins Actual Time 2:33mins On Stool none New Meds No Sleep OK YES Psoralen Taken? n/a PUVA Med Nausea NA - NOT APPLICABLE Erythema Grade 0 Blisters NO Itching NO Pain 0 MD Notified NA - NO REACTION Goggles YES Oral/Topical Meds NO Suntan Lotion face Shield none Nurse Keiko [facility] Nurse #2 Comments PHOTOTHERAPY DOC FLOWSHEET RESPONSES [[id number]][ 11/23/2009 Orientation NO Time 8:04 AM MD Orders 10/22/09 Start NBUVB @ 400mj increase 50mj each treatment to a maximum of 1000mj. 3 times per week.Sunscreen on face per Dr. Zaragoza Ttl # of Treatments 51 DIAGNOSIS psoriasis Site #1 body Type NBUVB Prescr Dose 750mj Actual Dose 753mj Predict Time 3:54mins Actual Time 2:21mins On Stool none New Meds Yes Sleep OK YES Psoralen Taken? n/a PUVA Med Nausea NA - NOT APPLICABLE Erythema Grade 0 Blisters NO Itching NO Pain 0 MD Notified NA - NO REACTION Goggles YES Oral/Topical Meds NO Suntan Lotion face Shield none Nurse JAY JAY Jameson Nurse #2 Comments documented in this en counter Plan of Treatment Not on filedocumented as of this encounter Visit Diagnoses + + | Diagnosis | + + | Other psoriasis | + + documented in this encounter"
--- OUTSIDE RECORDS SUMMARY | ~2020-04-11 | XMS | Encounter Summary ---
Demographics + + + | Address | [address] | | | [place] [address] | + + + | Home Phone | | + + + | Preferred Language | Unknown | + + + | Marital Status | Single | + + + | Religion Affiliation | UNK | + + + | Race | White | + + + | Ethnic Group | Not or | + + + Author + + + | Author | [facility] | + + + | Organization | [facility] | + + + | Address | Unknown | + + + | Phone | Unavailable | + + + Care Team Providers + +------+ + | Care Contract Accountant Name | Role | Phone | + +------+ + | No Pcp Per Patient | PCP | Unavailable | + +------+ + Reason for Visit + + + | Reason | Comments | + + + | Injection | ppd 48 hr read | + + + Encounter Details +--------+---------+ + + + | Date | Type | Department | Care Team | Description | +--------+---------+ + + + | 06/04/ | Office | Dermatology | | Other Psoriasis | | 2007 | Visit | Phototherapy at [facility] | | (Primary Dx) | | | | [address] | | | | | | [facility] | | | | | | and Healing, | | | | | | Building | | | | | | Floor [place], [place] | | | | | | [address] | | | | | | [phone] | | | +--------+---------+ + + + [...] + documented as of this encounter Progress Krista Carrion Lpn - 06/04/2008 4:41 PM PSTPpd @ left forearm negative.Electronically argenis d by Krista Garcia Lpn at 06/04/2008 4:41 PM PSTdocumented in this encounter Plan of Treatment Not on filedocumented as of this encounter Visit Diagnoses + + | Diagnosis | + + | Other psoriasis - Primary | + + documented in this encounter"
--- OUTSIDE RECORDS SUMMARY | ~2020-04-11 | XMS | Encounter Summary ---
Demographics + + + | Address | [address] | | | [place] [address] | + + + | Home Phone | | + + + | Preferred Language | Unknown | + + + | Marital Status | Single | + + + | Christian Affiliation | UNK | + + + | Race | White | + + + | Ethnic Group | Not or | + + + Author + + + | Author | [facility] | + + + | Organization | [facility] | + + + | Address | Unknown | + + + | Phone | Unavailable | + + + Care Team Providers + +------+ + | Care Sampler Tester Name | Role | Phone | + [...] | +--------+ + + + + | 07/02/ | Procedure | Dermatology | | Phototherapy (NBUVB) | | 2007 | | Phototherapy at [facility] | | | | | | [address] | | | | | | [facility] | | | | | | and Healing, | | | | | | Building | | | | | | Floor [employer], [place] | | | | | | [address] | | | | | | [phone] | | | +--------+ + + + [...] this encounter Progress Notes Giselle Ro - 07/02/2008 3:49 PM PSTFormatting of this note might be different fro m the original. PHOTOTHERAPY DOC FLOWSHEET RESPONSES [[id number]][ 07/02/2008 Orientation NO Time 3:31 PM MD Orders 06/09/08 Start NBUVB @ 75mj increase 50mj each treatment to a maximum of 1000mj. Two times a week apply sunscreen to face per Dr. Zaragoza Ttl # of Treatments 5 DIAGNOSIS psoriasis Site #1 body Type NBUVB Prescr Dose 225mj Actual Dose 232mj Predict Time 0:44sec Actual Time 0:34sec On Stool none New Meds no Sleep OK YES Psoralen Taken? n/a PUVA Med Nausea NA - NOT APPLICABLE Erythema Grade 0 Blisters NO Itching NO Pain 1 - NONE TO MILD MD Notified NA - NO REACTION Goggles YES Oral/Topical Meds NO Suntan Lotion face Shield none Nurse Keiko RUSSELL Comments PHOTOTHERAPY DOC FLOWSHEET RESPONSES [[id number]][ 06/30/2008 Orientation No Time 4:11 PM MD Orders 06/09/08 Start [...] missed 11 days held dose per protocol documented in this en counter Plan of Treatment Not on filedocumented as of this encounter Visit Diagnoses + + | Diagnosis | + + | Other psoriasis | + + documented in this encounter"
--- OUTSIDE RECORDS SUMMARY | ~2020-04-11 | XMS | Encounter Summary ---
Demographics + + + | Address | [address] | | | [place] [address] | + + + | Home Phone | | + + + | Preferred Language | Unknown | + + + | Marital Status | Single | + + + | Yazidism Affiliation | UNK | + + + | Race | White | + + + | Ethnic Group | Not or | + + + Author + + + | Author | [facility] | + + + | Organization | [facility] | + + + | Address | Unknown | + + + | Phone | Unavailable | + + + Care Team Providers + +------+ + | Care Pile Driver Operator Barge Mounted Name | Role | Phone | + [...] | +--------+ + + + + | 11/20/ | Procedure | Dermatology | Nadia De Luna, | Phototherapy (NBUVB) | | 2009 | | Phototherapy at [facility] | MD | | | | | [address] | | | | | | [facility] | | | | | | and [place], | | | | | | [facility] | | | | | | [place], [place] | | | | | | [address] | | | | | | [phone] | | | +--------+ + + + [...] documented as of this encounter Progress Notes Lakisha Isidro - 11/20/2009 3:55 PM PDT PHOTOTHERAPY DOC FLOWSHEET RESPONSES [[id number]][ 11/20/2009 Orientation NO Time 3:43 PM MD Orders 10/22/09 Start NBUVB @ 400mj increase 50mj each treatment to a maximum of 1000mj. 3 times per week.Sunscreen on face per Dr. Zaragoza Ttl # of Treatments 50 DIAGNOSIS psoriasis Site #1 body Type NBUVB Prescr Dose 700mj Actual Dose 700mj Predict Time 3:38mins Actual Time 2:16mins On Stool none New Meds Yes Sleep OK YES Psoralen Taken? n/a PUVA Med Nausea NA - NOT APPLICABLE Erythema Grade 0 Blisters NO Itching NO Pain 0 MD Notified NA - NO REACTION Goggles YES Oral/Topical Meds NO Suntan Lotion face Shield none [facility] Comments Patient on amoxicillin PHOTOTHERAPY DOC FLOWSHEET RESPONSES [[id number]][ 11/18/2009 Orientation NO Time 7:49 AM MD Orders 10/22/09 Start NBUVB @ 400mj increase 50mj each treatment to a maximum of 1000mj. 3 times per week.Sunscreen on face per Dr. Zaragoza Ttl # of Treatments 49 DIAGNOSIS psoriasis Site #1 body Type NBUVB Prescr Dose 650mj Actual Dose 654mj Predict Time 3:23min Actual Time 2:10min On Stool none New Meds Yes Sleep OK YES Psoralen Taken? n/a PUVA Med Nausea NA - NOT APPLICABLE Erythema Grade 0 Blisters NO Itching NO Pain 0 MD Notified NA - NO REACTION Goggles YES Oral/Topical Meds NO Suntan Lotion face Shield none Nurse Keiko [facility] Nurse #2 Comments Patient missed 9 days held dose per protocal. Patient on amoxicillin and vicodin documented in this enco unter Plan of Treatment Not on filedocumented as of this encounter Visit Diagnoses + + | Diagnosis | + + | Other psoriasis | + + documented in this encounter"
--- OUTSIDE RECORDS SUMMARY | ~2020-04-11 | XMS | Encounter Summary ---
Demographics + + + | Address | [address] | | | [place] [address] | + + + | Home Phone | | + + + | Preferred Language | Unknown | + + + | Marital Status | Single | + + + | Catholic Affiliation | UNK | + + + [...] Team Providers + +------+ + | Care Production Line Worker Name | Role | Phone | + [...] | +--------+ + + + + | 10/19/ | Procedure | Dermatology | Nadia De Luna, | Phototherapy (NBUVB) | | 2009 | | Phototherapy at [facility] | MD | | | | | [address] | | | | | | [facility] | | | | | | and [place], | | | | | | [facility] | | | | | | [place], [place] | | | | | | [address] | | | | | | [phone] | | | +--------+ + + + [...] documented as of this encounter Progress Notes Krista Garcia Lpn - 10/19/2009 3:08 PM PDT PHOTOTHERAPY DOC FLOWSHEET RESPONSES [[id number]][ 10/19/2009 Orientation NO Time 2:03 PM MD Orders 10/05/09 Start NBUVB @ 300mj increase 50mj each treatment to a maximum of 1000mj. 2 times per week.Sunscreen on face and stand on stool for full treatment Ttl # of Treatments 42 DIAGNOSIS psoriasis Site #1 body Type NBUVB Prescr Dose 350mj Actual Dose 351mj Predict Time 1:54mins Actual Time 1:11mins On Stool none New Meds no Sleep OK YES Psoralen Taken? n/a PUVA Med Nausea NA - NOT APPLICABLE Erythema Grade 0 Blisters NO Itching NO Pain 0 MD Notified NA - NO REACTION Goggles YES Oral/Topical Meds NO Suntan Lotion face Shield none Nurse JAY JAY Jameson Nurse #2 Comments note sent to Dr. Zaragoza to request no stool as patient refuses to use & have tony atment three times a week. PHOTOTHERAPY DOC FLOWSHEET RESPONSES [[id number]][ 10/12/2009 Orientation NO Time 4:10 PM MD Orders 10/12/09 Start NBUVB @ 300mj increase 50mj each treatment to a maximum of 1000mj. 2 times per week.Sunscreen on face and stand on stool for full treatment Ttl # of Treatments 41 DIAGNOSIS psoriasis Site #1 body Type NBUVB Prescr Dose 300mj Actual Dose 302mj Predict Time 1:40min Actual Time 0:55sec On Stool none New Meds no Sleep OK YES Psoralen Taken? n/a PUVA Med Nausea NA - NOT APPLICABLE Erythema Grade 0 Blisters NO Itching NO Pain 0 MD Notified NA - NO REACTION Goggles YES Oral/Topical Meds NO Suntan Lotion face Shield none Nurse Nurse #2 Comments documented in this enco unter Plan of Treatment Not on filedocumented as of this encounter Visit Diagnoses + + | Diagnosis | + + | Other psoriasis | + + documented in this encounter"
--- OUTSIDE RECORDS SUMMARY | ~2020-04-11 | XMS | Encounter Summary ---
Demographics + + + | Address | [address] | | | [place] [address] | + + + | Home Phone [...] Author + + + | Author | [facility] | + + + | Organization | [facility] | + + + | Address | Unknown | + + + | Phone | Unavailable | + + + Care Team Providers + +------+ + | Care Timber Supervisor Name | Role | Phone | + [...] | +--------+ + + + + | 10/23/ | Procedure | Dermatology | Ingacio Reed, | Phototherapy (NBUVB) | | 2008 | | Phototherapy at [facility] | MD [address] | | | | | [address] | [place], [place] | | | | | [facility] | [address] | | | | | and [address], | [phone] | | | | | [facility] | | | | | | [place], [place] | | | | | | [address] | | | | | | [phone] | | | +--------+ + + + [...] this encounter Progress Notes Brandin Lundberg - 10/23/2008 4:22 PM PDT PHOTOTHERAPY DOC FLOWSHEET RESPONSES [[id number]][ 10/23/2008 Orientation NO Time 3:47 PM MD Orders 06/09/08 Start NBUVB @ 75mj increase 50mj each treatment to a maximum of 1000mj. Two times a week apply sunscreen to face per Dr. Zaragoza Ttl # of Treatments 33 DIAGNOSIS psoriasis Site #1 body Type NBUVB Prescr Dose 1000mj Actual Dose 1004mj Predict Time 4:09min Actual Time 2:41min On Stool none New Meds no Sleep OK YES Psoralen Taken? n/a PUVA Med Nausea NA - NOT APPLICABLE Erythema Grade 0 Blisters NO Itching NO Pain 0 MD Notified NA - NO REACTION Goggles YES Oral/Topical Meds NO Suntan Lotion face Shield none Nurse md Nurse #2 Comments PHOTOTHERAPY DOC FLOWSHEET RESPONSES [[id number]][ 10/20/2008 Orientation NO Time 3:47 PM MD Orders 06/09/08 Start NBUVB @ 75mj increase 50mj each treatment to a maximum of 1000mj. Two times a week apply sunscreen to face per Dr. Zaragoza Ttl # of Treatments 33 DIAGNOSIS psoriasis Site #1 body Type NBUVB Prescr Dose 1000mj Actual Dose 1000mj Predict Time 4:09min Actual Time 2:40min On Stool none New Meds no Sleep OK YES Psoralen Taken? n/a PUVA Med Nausea NA - NOT APPLICABLE Erythema Grade 0 Blisters NO Itching NO Pain 0 MD Notified NA - NO REACTION Goggles YES Oral/Topical Meds NO Suntan Lotion face Shield none Nurse md Nurse #2 Comments documented in this encount er Plan of Treatment Not on filedocumented as of this encounter Visit Diagnoses + + | Diagnosis | + + | Other psoriasis | + + documented in this encounter"
--- OUTSIDE RECORDS SUMMARY | ~2020-04-11 | XMS | Encounter Summary ---
Demographics + + + | Address | [address] | | | [place] [address] | + + + | Home Phone | | + + + | Preferred Language | Unknown | + + + | Marital Status | Single | + + + | Quaker Affiliation | UNK | + + + [...] Team Providers + +------+ + | Care Correctional Lieutenant Name | Role | Phone | + [...] | +--------+ + + + + | 08/05/ | Procedure | Dermatology | | Phototherapy (NBUVB) | | 2008 | | Phototherapy at [facility] | | | | | | [address] | | | | | | [facility] | | | | | | and Healing, | | | | | | Building | | | | | | Floor [place], [place] | | | | | | [address] | | | | | | [phone] | | | +--------+ + + + [...] of this encounter Progress Notes Giselle Ro D - 08/05/2008 3:57 PM PSTFormatting of this note might be different fro m the original. PHOTOTHERAPY DOC FLOWSHEET RESPONSES [[id number]][ 08/05/2008 Orientation NO Time 3:43 PM MD Orders 06/09/08 Start NBUVB @ 75mj increase 50mj each treatment to a maximum of 1000mj. Two times a week apply sunscreen to face per Dr. Zaragoza Ttl # of Treatments 13 DIAGNOSIS psoriasis Site #1 body Type NBUVB Prescr Dose 625mj Actual Dose 625mj Predict Time 2:08min Actual Time 1:34min On Stool none New Meds no Sleep OK YES Psoralen Taken? n/a PUVA Med Nausea NA - NOT APPLICABLE Erythema Grade 0 Blisters NO Itching NO Pain 0 MD Notified NA - NO REACTION Goggles YES Oral/Topical Meds NO Suntan Lotion face Shield none Nurse Nurse #2 Keiko Comments PHOTOTHERAPY DOC FLOWSHEET RESPONSES [[id number]][ 07/29/2008 Orientation NO Time 3:42 PM MD Orders 06/09/08 Start NBUVB @ 75mj increase 50mj each treatment to a maximum of 1000mj. Two times a week apply sunscreen to face per Dr. Zaragoza Ttl # of Treatments 12 DIAGNOSIS psoriasis Site #1 body Type NBUVB Prescr Dose 575mj Actual Dose 580mj Predict Time 2:06min Actual Time 1:22min On Stool none New Meds no Sleep OK YES Psoralen Taken? n/a PUVA Med Nausea NA - NOT APPLICABLE Erythema Grade 0 Blisters NO Itching NO Pain 0 MD Notified NA - NO REACTION Goggles YES Oral/Topical Meds NO Suntan Lotion face Shield none Nurse Md Nurse #2 LConant MASTER YACHT Comments documented in this en counter Plan of Treatment Not on filedocumented as of this encounter Visit Diagnoses + + | Diagnosis | + + | Other psoriasis | + + documented in this encounter"
--- OUTSIDE RECORDS SUMMARY | ~2020-04-11 | XMS | Encounter Summary ---
Demographics + + + | Address | [address] | | | [place] [address] | + + + | Home Phone | | + + + | Preferred Language | Unknown | + + + | Marital Status | Single | + + + | Mosque Affiliation | UNK | + + + | Race | White | + + + | Ethnic Group | Not or | + + + Author + + + | Author | [facility] | + + + | Organization | [facility] | + + + | Address | Unknown | + + + | Phone | Unavailable | + + + Care Team Providers + +------+ + | Care Lab Technologist Name | Role | Phone | + [...] Description | +--------+---------+ + + + | 11/03/ | Office | Dermatology | Jeyson Zaragoza, | Other Psoriasis | | 2008 | Visit | Medical at [facility] [address] | MD | (Primary Dx) | | | | [facility] | | | | | | for Health and | | | | | | [facility], [facility] [address], | | | | | | 16th Floor | | | | | | [place], [place] | | | | | | [address] | | | | | | [phone] | | | +--------+---------+ + + + [...] + | Blood Pressure | 124/82 | 11/03/2008 8:15 AM | | | | | PDT | | + + + + + | Pulse | 72 | 11/03/2008 8:15 AM | | | | | PDT | | + + + + + | Temperature | - | - | | + + + + + | Respiratory Rate | 14 | 11/03/2008 8:15 AM | | | | | PDT | | + + + + + | Oxygen Saturation | - | - | | + + + + + | Inhaled Oxygen | - | - | | | Concentration | | | | + + + + + | Weight | 90.8 kg (200 lb 3.2 | 11/03/2008 8:15 AM | | | | oz) | PDT | | + + + + + | Height | - | - | | + + + + + | Body Mass Index | 27.34 | 06/02/2008 8:27 AM | | | | | PST | | + + + + + documented in this encounter Progress Notes Jeyson Zaragoza MD - 11/03/2008 1:32 PM PDTI have edited and agree with the resident's n ote. I spent 16 minutes talking to the patient, examining the patient, and going over the t reatment plan. Jeyson Zaragoza M.D. Professor, Department of Dermatology Research Director, [facility] P[facility] Alba Aguiar Md - 8:37 AM PDTCenter of Excellence for Psoriasis and Psoriatic Arthritis ([facility]) FOLL OW-UP VISIT S: From previous visits: Walt Cerna is a 37 y.o. male with a history of psorias is for 35 years. As a toddler, he had involvement of his scalp and received light therapy, a nd during his childhood and adolescence he had persistent knee plaques. In his early 20's, destini oneil developed plaques on his elbows, and in his late 20's he started getting Kenalog injection s intralesionally. Four to 5 years ago, he started going to tanning beds 3 times weekly; sto pped this 1 year ago. He started taking MTX at age 27, advanced up to 25 mg weekly and had n early 100% clearance for 7 years, but then had worsening while still on MTX; had a liver bio psy roughly 2 years ago, which was normal. Winter time is when his psoriasis is at its wors t and stress is a significant exacerbating factor. He has been on numerous topical therapies in the past, including corticosteroids, Dovonex, and Tazorac. At his initial visit in 06/09 he had involvement of knees, shoulders, hips, palms. His father has a history of MS, so he was hesitant to start Enbrel which he was approved for. In 06/09 he was started on NBUVB BI W with max dose of 1000mj. 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 He has not been evaluated by Dr. Duggan. Since his last visit he has faithfully continued with NBUVB BIW, he is currently at his max dose of 1000 mJ/cm2. He continues to improve with a few persistant spots on his bilateral k nees. He is not using any topical therapies currently. Happy with his response. O: - a full skin examination was performed, including scalp, face, neck, bilateral upper and l ower extremities, abdomen, chest, back, buttocks, groin, genitalia, hands, and nails, and th e exam was only notable for the following: * scattered well-demarcated pink thin scaly plaques, approx. 2% BSA, located on the knees a nd anterior legs * 4/10 fingernails with nail pitting and onycholysis - no evidence of joint erythema, edema, or pain - the patient had a normal mood and affect, and was alert and oriented to person, place, an d time A/P: Severe psoriasis (now at 2% BSA down from 10%) with great response with phototherapy with f ew resistant areas on bilateral knees - will continue phototherapy, and attempt to decrease frequency to once a week with increas ing the dose - increase by 25 mJ/cm2 with each tx to max of 1400 mj/cm2 BIW - discussed sun safety and risk of skin cancer with prolonged sun exposure - next option would be Enbrel 50 mg SC BIW, possibly in combination with phototherapy; this has been approved by his insurance, however, patient is hesitant due to father's history of MS - Tgel or Tsal shampoo for scalp as needed - start betamethasone ointment BID prn spot therapy RTC: 4 months Alba Khanna MD Resident, Department of Dermatology Count Includes [facility] documented in this e ncounter Plan of Treatment Not on filedocumented as of this encounter Visit Diagnoses + + | Diagnosis | + + | Other psoriasis - Primary | + + documented in this encounter"
--- OUTSIDE RECORDS SUMMARY | ~2020-04-11 | XMS | Encounter Summary ---
Demographics + + + | Address | [address] | | | [place] [address] | + + + | Home Phone | | + + + | Preferred Language | Unknown | + + + | Marital Status | Single | + + + | Spiritism Affiliation | UNK | + + + [...] Team Providers + +------+ + | Care Property Condition Assessor Name | Role | Phone | + [...] | +--------+ + + + + | 11/03/ | Procedure | Dermatology | Jeyson Zaragoza, | Phototherapy (NBUVB) | | 2008 | | Phototherapy at [facility] | MD | | | | | [address] | | | | | | [facility] | | | | | | and [place], | | | | | | [facility] | | | | | | [place], [place] | | | | | | [address] | | | | | | [phone] | | | +--------+ + + + [...] encounter Progress Notes Krista Garcia Lpn - 11/03/2008 9:19 AM PDT PHOTOTHERAPY DOC FLOWSHEET RESPONSES [[id number]][ 11/03/2008 Orientation NO Time 9:16 AM MD Orders [id number] Start NBUVB @ 1000mj & increase by 25mj each treatment to a maximum of 140 0mj. Cover genitials & sunscreen to face two times a week per Dr. [place] Zaragoza Ttl # of Treatments 36 DIAGNOSIS psoriasis Site #1 body Type NBUVB Prescr Dose 1000mj Actual Dose 1003mj Predict Time 4:13min Actual Time 2:34mins On Stool none New Meds no Sleep OK YES Psoralen Taken? n/a PUVA Med Nausea NA - NOT APPLICABLE Erythema Grade 0 Blisters NO Itching NO Pain 0 MD Notified NA - NO REACTION Goggles YES Oral/Topical Meds NO Suntan Lotion face Shield none Nurse JAY JAY Jameson Nurse #2 Comments PHOTOTHERAPY DOC FLOWSHEET RESPONSES [[id number]][ 10/31/2008 Orientation NO Time 2:11 PM Orders 06/09/08 Start NBUVB @ 75mj increase 50mj each treatment to a maximum of 1000mj. Two times a week apply sunscreen to face per Dr. Zaragoza Ttl # of Treatments 35 DIAGNOSIS psoriasis Site #1 body Type NBUVB Prescr Dose 1000mj Actual Dose 1004mj Predict Time 4:13min Actual Time 2:38min On Stool none New Meds no Sleep OK YES Psoralen Taken? n/a PUVA Med Nausea NA - NOT APPLICABLE Erythema Grade 0 Blisters NO Itching NO Pain 0 MD Notified NA - NO REACTION Goggles YES Oral/Topical Meds NO Suntan Lotion face Shield none Nurse Md Nurse #2 Comments documented in this enco unter Plan of Treatment Not on filedocumented as of this encounter Visit Diagnoses + + | Diagnosis | + + | Other psoriasis - Primary | + + documented in this encounter"
--- OUTSIDE RECORDS SUMMARY | ~2020-04-11 | XMS | Encounter Summary ---
Demographics + + + | Address | [address] | | | [place] [address] | + + + | Home Phone | | + + + | Preferred Language | Unknown | + + + | Marital Status | Single | + + + | Rastafari Affiliation | UNK | + + + | Race | White | + + + | Ethnic Group | Not or | + + + Author + + + | Author | [facility] | + + + | Organization | [facility] | + + + | Address | Unknown | + + + | Phone | Unavailable | + + + Care Team Providers + +------+ + | Care Orthopaedic Surgeon Name | Role | Phone | + +------+ + | No Pcp Per Patient | PCP | Unavailable | + +------+ + Reason for Visit + +--------+ + | Reason | Onset | Comments | | | Date | | + +--------+ + | Phototherapy | 09/24/ | NBUVB | | | 2010 | | + +--------+ + Encounter Details +--------+ + + + + | Date | Type | Department | Care Team | Description | +--------+ + + + + | 09/24/ | Procedure | Dermatology | Tod Maxwell MD | Phototherapy (NBUVB) | | 2010 | | Phototherapy at [facility] | [address] | | | | | [address] | [place], [place] | | | | | [facility] | [address] | | | | | and Healing, | [phone] | | | | | | | | | | | Floor [place], [place] | | | | | | [address] | | | | | | [phone] | | | +--------+ + + + [...] this encounter Progress Adeline Shultz MA - 09/24/2010 7:59 AM PDTPhototherapy Visit Record: Phototherapy Orientation: NO Time of Treatment: 0741 Physician Orders: 09/03/10 start NBUVB @ 400mj increase 50mj each tx to a maximum of 1000mj. Sunscreen on face and pt stand on stool per Dr. Zaragoza Total # of Treatments: 68 DIAGNOSIS: psoriasis Treatment Site #1: body Phototherapy Type: NBUVB Prescr Dose(j or mj)_ _._ _ _: 800mj Actual Dose(j or mj)_ _._ _ _: 804mj Predicted Time (min:sec): 3:10min Actual Time (min:sec): 1:52min Dosage on stool: 804mj Additional Information: New meds since last visit: [...] over sites: none Nurse: ramses ureña Comments: per dr mendoza pt is ok to use brown bag instead of sunscreen if he chooses documented in this e ncounter Plan of Treatment Not on filedocumented as of this encounter Procedures + +--------+ + + + | Procedure Name | Priori | Date/Time | Associated Diagnosis | Comments | | | ty | | | | + +--------+ + + + | PHOTOTHERAPY (UVA, | Routin | 09/24/2010 | Psoriasis | | | UVB, NBUVB) - BACK | e | | | | | OFFICE | | | | | + +--------+ + + + documented in this encounter Visit Diagnoses + + | Diagnosis | + + | Psoriasis - Primary Other psoriasis | + + documented in this encounter"
--- OUTSIDE RECORDS SUMMARY | ~2020-04-11 | XMS | Encounter Summary ---
Demographics + + + | Address | [address] | | | [place] [address] | + + + | Home Phone | | + + + | Preferred Language | Unknown | + + + | Marital Status | Single | + + + | Alevism Affiliation | UNK | + + + [...] Team Providers + +------+ + | Care Dishwasher Name | Role | Phone | + [...] | +--------+ + + + + | 09/09/ | Procedure | Dermatology | Ignacio Reed, | Phototherapy (NBUVB) | | 2008 | | Phototherapy at [facility] | MD [address] | | | | | [address] | [place], [place] | | | | | [facility] | [address] | | | | | and [address], | [phone] | | | | | [facility] | | | | | | [place], [place] | | | | | | [address] | | | | | | [phone] | | | +--------+ + + + [...] this encounter Progress Notes Brandin Lundberg - 09/09/2008 4:16 PM PDT PHOTOTHERAPY DOC FLOWSHEET RESPONSES [[id number]][ 09/09/2008 Orientation NO Time 4:05 PM MD Orders 06/09/08 Start NBUVB @ 75mj increase 50mj each treatment to a maximum of 1000mj. Two times a week apply sunscreen to face per Dr. Zaragoza Ttl # of Treatments 23 DIAGNOSIS psoriasis Site #1 body Type NBUVB Prescr Dose 1000mj Actual Dose 1007mj Predict Time 3:40min Actual Time 2:18min On Stool none New Meds no Sleep OK YES Psoralen Taken? n/a PUVA Med Nausea NA - NOT APPLICABLE Erythema Grade 0 Blisters NO Itching NO Pain 0 MD Notified NA - NO REACTION Goggles YES Oral/Topical Meds NO Suntan Lotion face Shield none Nurse MD Nurse #2 Comments PHOTOTHERAPY DOC FLOWSHEET RESPONSES [[id number]][ 09/04/2008 Orientation NO Time 3:53 PM MD Orders 12/8/08 Start NBUVB @ 75mj increase 50mj each treatment to a maximum of 1000mj. Two times a week apply sunscreen to face per Dr. Zaragoza Ttl # of Treatments 22 DIAGNOSIS psoriasis Site #1 body Type NBUVB Prescr Dose 1000mj Actual Dose 1001mj Predict Time 3:40min Actual Time 2:23min On Stool none New Meds no Sleep [...]
--- OUTSIDE RECORDS SUMMARY | ~2020-04-11 | XMS | Encounter Summary ---
Demographics + + + | Address | [address] | | | [place] [address] | + + + | Home Phone | | + + + | Preferred Language | Unknown | + + + | Marital Status | Single | + + + | Gnosticist Affiliation | UNK | + + + | Race | White | + + + | Ethnic Group | Not or | + + + Author + + + | Author | [facility] | + + + | Organization | [facility] | + + + | Address | Unknown | + + + | Phone | Unavailable | + + + Care Team Providers + +------+ + | Care Upset Operator Name | Role | Phone | [...] | +--------+ + + + + | 10/13/ | Procedure | Dermatology | Nadia De Luna, | Phototherapy (NBUVB) | | 2008 | | Phototherapy at [facility] | MD | | | | | [address] | | | | | | [facility] | | | | | | and [place], | | | | | | [facility] | | | | | | [place], [place] | | | | | | [address] | | | | | | [phone] | | | +--------+ + + + [...] this encounter Progress Notes Brandin Lundberg - 10/13/2008 4:20 PM PDT PHOTOTHERAPY DOC FLOWSHEET RESPONSES [[id number]][ 10/13/2008 Orientation NO Time 4:14 PM MD Orders 06/09/08 Start NBUVB @ 75mj increase 50mj each treatment to a maximum of 1000mj. Two times a week apply sunscreen to face per Dr. Zaragoza Ttl # of Treatments 31 DIAGNOSIS psoriasis Site #1 body Type NBUVB Prescr Dose 1000mj Actual Dose 1004mj Predict Time 3:43min Actual Time 2:40min On Stool none New Meds no Sleep OK YES Psoralen Taken? n/a PUVA Med Nausea NA - NOT APPLICABLE Erythema Grade 0 Blisters NO Itching NO Pain 0 MD Notified NA - NO REACTION Goggles YES Oral/Topical Meds NO Suntan Lotion face Shield none Nurse Nurse #2 Comments PHOTOTHERAPY DOC FLOWSHEET RESPONSES [[id number]][ 10/06/2008 Orientation NO Time 4:00 PM MD Orders 06/09/08 Start NBUVB @ 75mj increase 50mj each treatment to a maximum of 1000mj. Two times a week apply sunscreen to face per Dr. Zaragoza Ttl # of Treatments 30 DIAGNOSIS psoriasis Site #1 body Type NBUVB Prescr Dose 1000mj Actual Dose 1000mj Predict Time 3:48min Actual Time 2:18min On Stool none New [...]
--- OUTSIDE RECORDS SUMMARY | ~2020-04-11 | XMS | Encounter Summary ---
Demographics + + + | Address | [address] | | | [place] [address] | + + + | Home Phone | | + + + | Preferred Language | Unknown | + + + | Marital Status | Single | + + + | Worship Affiliation | UNK | + + + | Race | White | + + + | Ethnic Group | Not or | + + + Author + + + | Author | [facility] | + + + | Organization | [facility] | + + + | Address | Unknown | + + + | Phone | Unavailable | + + + Care Team Providers + +------+ + | Care Corporate Claims Examiner Name | Role | Phone | + [...] | +--------+ + + + + | 12/18/ | Procedure | Dermatology | Nadia De Luna, | Phototherapy (NBUVB) | | 2009 | | Phototherapy at [facility] | MD | | | | | [address] | | | | | | [facility] | | | | | | and [place], | | | | | | [facility] | | | | | | [place], [place] | | | | | | [address] | | | | | | [phone] | | | +--------+ + + + [...] this encounter Progress Notes Brandin Lundberg - 12/18/2009 2:35 PM PDT PHOTOTHERAPY DOC FLOWSHEET RESPONSES [[id number]][ 12/18/2009 Orientation NO Time 2:20 PM MD Orders 11/23/09 Start NBUVB @ 400mj increase 100mj each treatment to a maximum of 800mj t hen increase by 50mj to a maximum of 1000mj. 3 times per week.Sunscreen on face per Dr. Mey boyce Ttl # of Treatments 57 DIAGNOSIS psoriasis Site #1 body Type NBUVB Prescr Dose 700mj Actual Dose 701mj Predict Time 2:16min Actual Time 1:28min On Stool none New Meds no Sleep OK YES Psoralen Taken? n/a PUVA Med Nausea NA - NOT APPLICABLE Erythema Grade 0 Blisters NO Itching NO Pain 0 MD Notified NA - NO REACTION Goggles YES Oral/Topical Meds NO Suntan Lotion face Shield none Nurse MD Nurse #2 Comments Pt missed 9 days. treatment held to previous dosage per protocol PHOTOTHERAPY DOC FLOWSHEET RESPONSES [[id number]][ 12/09/2009 Orientation NO Time 7:56 AM MD Orders 11/23/09 Start NBUVB @ 400mj increase 100mj each treatment to a maximum of 800mj t hen increase by 50mj to a maximum of 1000mj. 3 times per week.Sunscreen on face per Dr. Mey boyce Ttl # of Treatments 56 DIAGNOSIS psoriasis Site #1 body Type NBUVB Prescr Dose 700mj Actual Dose 702mj Predict Time 2:17mins Actual Time 1:28mins On Stool none New Meds Yes Sleep OK YES Psoralen Taken? n/a PUVA Med Nausea NA - NOT APPLICABLE Erythema Grade 0 Blisters NO Itching NO Pain 0 MD Notified NA - NO REACTION Goggles YES Oral/Topical Meds NO Suntan Lotion face Shield none Nurse Keiko [facility] Nurse #2 Comments Patient taking OTC allergy medication documented in this encount er Plan of Treatment Not on filedocumented as of this encounter Visit Diagnoses + + | Diagnosis | + + | Other psoriasis | + + documented in this encounter"
--- OUTSIDE RECORDS SUMMARY | ~2020-04-11 | XMS | Encounter Summary ---
Demographics + + + | Address | [address] | | | [place] [address] | + + + | Home Phone | | + + + | Preferred Language | Unknown | + + + | Marital Status | Single | + + + | Temple Affiliation | UNK | + + + | Race | White | + + + | Ethnic Group | Not or | + + + Author + + + | Author | [facility] | + + + | Organization | [facility] | + + + | Address | Unknown | + + + | Phone | Unavailable | + + + Care Team Providers + +------+ + | Care Opto Mechanical Engineer Name | Role | Phone | + +------+ + | No Pcp Per Patient | PCP | Unavailable | + +------+ + Reason for Visit +--------+ + | Reason | Comments | +--------+ + | Warts | | +--------+ + Encounter Details +--------+---------+ + + + | Date | Type | Department | Care Team | Description | +--------+---------+ + + + | 03/05/ | Office | Dermatology | Jeyson Zaragoza, | Genital warts | | 2009 | Visit | Medical at [facility] [address] | MD | (Primary Dx); Other | | | | [facility] | | psoriasis | | | | for Health and | | | | | | Healing, [address], | | | | | | [address]th Floor | | | | | | [place], [place] | | | | | | [address] | | | | | | [phone] | | | +--------+---------+ + + + [...] this encounter Last Filed Vital Signs + +---------+ + + | Vital Sign | Reading | Time Taken | Comments | + +---------+ + + | Blood Pressure | 132/90 | 03/05/2010 8:27 AM | | | | | PDT | | + +---------+ + + | Pulse | 68 | 03/05/2010 8:27 AM | | | | | PDT | | + +---------+ + + | Temperature | - | - | | + +---------+ + + | Respiratory Rate | 16 | 03/05/2010 8:27 AM | | | | | PDT | | + +---------+ + + | Oxygen Saturation | - | - | | + +---------+ + + | Inhaled Oxygen | - | - | | | Concentration | | | | + +---------+ + + | Weight | - | - | | + +---------+ + + | Height | - | - | | + +---------+ + + | Body Mass Index | - | - | | + +---------+ + + documented in this encounter Progress Notes Jeyson Zaragoza MD - 03/05/2010 10:05 AM [facility] Psoriasis and Psoria tic Arthritis ([facility]) FOLLOW-UP VISIT S: From previous visits: Walt Cerna is a 39 y.o. male with a history of psoriasi s for 36 years. As a toddler, he had involvement of his scalp and received light therapy, an d during his childhood and adolescence he had persistent knee plaques. In his early 20's, he developed plaques on his elbows, and in his late 20's he started getting Kenalog injections intralesionally. Pt used tanning beds TIW for 3-4 years. He started taking MTX at age 27, a dvanced up to 25 mg weekly and had nearly 100% clearance for 7 years, but then had worsening while still on MTX; had a liver biopsy roughly 2 years ago, which was normal. Winter time i s when his psoriasis is at its worst and stress is a significant exacerbating factor. He has been on numerous topical therapies in the past, including corticosteroids, Dovonex, and Florian orac. At his initial visit in 06/09 he had involvement of knees, shoulders, hips, palms. His father has a history of MS, so he was hesitant to start Enbrel which he was approved for. I n 06/09 he was started on NBUVB BIW with max dose of 1000mj. 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 He has not b een evaluated by Dr. Duggan. He received phototherapy with NBUVB BIW in 2008 and early in 2009. Psoriasis has been under good control with topicals only. No light therapy since December 2009. FH of MS. Returns today for treatment of genital warts. Present on and off for many ears. Has be froz en off with LN2 in past. No pain/pruritus/bleeding. Has many questions about HPV and 's risk of disease. O: - BP 132/90, Pulse 68, RR 16. - a full skin examination was performed, including scalp, face, neck, bilateral upper and l ower extremities, abdomen, chest, back, buttocks, groin, genitalia, hands, and nails, and th e exam was only notable for the following: * 0% BSA (no psoriasis) * numerous skin colored to pink flat-topped and verrucous papules at base of penis and some on proximal penile shaft - no evidence of joint erythema, edema, or pain - the patient had a normal mood and affect, and was alert and oriented to person, place, an d time A/P: 1. Genital warts - after discussing pros and cons of cryotherapy, electrodessication, and chemical ablation, patient chose electrodessication - anesthetized with 1% lidocaine, electrodessicated 25 individual lesions in and around the base of the penis - tolerated well 2. Severe psoriasis in past (now at 0% BSA from his baseline 10%) with great response to ph ototherapy in the past and topical therapy alone now - will restart phototherapy in future if needed RTC: 1 month I examined the patient. I spent 25 total minutes with this patient, with greater than 50% of the time devoted to counseling and going over the treatment plan. I performed the electro dessication. Jeyson Zaragoza M.D. Professor, Department of Dermatology Research Director, [facility]th[facility] documented in this e ncounter Plan of Treatment Not on filedocumented as of this encounter Procedures + +--------+ + + + | Procedure Name | Priori | Date/Time | Associated Diagnosis | Comments | | | ty | | | | + +--------+ + + + | [facility] DESTR PENIS | Routin | 03/07/2010 | Genital warts | | | MARCEL NGUYEN | e | 5:15 PM | | | | | | PDT | | | + +--------+ + + + documented in this encounter Visit Diagnoses + + | Diagnosis | + + | Genital warts - Primary Condyloma acuminatum | + + | Other psoriasis | + + documented in this encounter"
--- OUTSIDE RECORDS SUMMARY | ~2020-04-11 | XMS | Encounter Summary ---
Demographics + + + | Address | [address] | | | [place] [address] | + + + | Home Phone | | + + + | Preferred Language | Unknown | + + + | Marital Status | Single | + + + | Bahai Affiliation | UNK | + + + [...] Team Providers + +------+ + | Care Cotton Picker Operator Name | Role | Phone | [...] | +--------+ + + + + | 08/19/ | Procedure | Dermatology | Ignacio Reed, | Phototherapy (NBUVB) | | 2008 | | Phototherapy at [facility] | MD [address] | | | | | [address] | [place], [place] | | | | | [facility] | [address] | | | | | and [place]q, | [phone] | | | | | | | | | | | [place], [place] | | | | | | [address] | | | | | | [phone] | | | +--------+ + + + [...] this encounter Progress Notes Brandin Lundberg - 08/19/2008 4:12 PM PST PHOTOTHERAPY DOC FLOWSHEET RESPONSES [[id number]][ 08/19/2008 Orientation NO Time 4:01 PM MD Orders 06/09/08 Start NBUVB @ 75mj increase 50mj each treatment to a maximum of 1000mj. Two times a week apply sunscreen to face per Dr. Zaragoza Ttl # of Treatments 17 DIAGNOSIS psoriasis Site #1 body Type NBUVB Prescr Dose 775mj Actual Dose 777mj Predict Time 2:43min Actual Time 1:46min On Stool none New Meds no Sleep OK YES Psoralen Taken? n/a PUVA Med Nausea NA - NOT APPLICABLE Erythema Grade 1 Blisters NO Itching NO Pain 0 MD Notified YES Goggles YES Oral/Topical Meds NO Suntan Lotion face Shield none Nurse MD Nurse #2 Comments dose held @775mj for today only per dr. Reed PHOTOTHERAPY DOC FLOWSHEET RESPONSES [[id number]][ 08/15/2008 Orientation Time 4:05 PM MD Orders 06/09/08 Start NBUVB @ 75mj increase 50mj each treatment to a maximum of 1000mj. Two times a week apply sunscreen to face per Dr. Zaragoza Ttl # of Treatments 16 DIAGNOSIS psoriasis Site #1 body Type NBUVB Prescr Dose 775mj Actual Dose 781mj Predict Time 2:43 Actual Time 1:45 On Stool none New Meds no Sleep OK YES Psoralen Taken? n/a PUVA Med Nausea NA - NOT APPLICABLE Erythema Grade 0 Blisters NO Itching NO Pain 0 MD Notified NA - NO REACTION Goggles YES Oral/Topical Meds NO Suntan Lotion face Shield none Nurse dds Nurse #2 Comments documented in this encount er Plan of Treatment Not on filedocumented as of this encounter Visit Diagnoses + + | Diagnosis | + + | Other psoriasis | + + documented in this encounter"
--- OUTSIDE RECORDS SUMMARY | ~2020-04-11 | XMS | Encounter Summary ---
Demographics + + + | Address | [address] | | | [place] [address] | + + + | Home Phone [...] Author + + + | Author | [facility] | + + + | Organization | [facility] | + + + | Address | Unknown | + + + | Phone | Unavailable | + + + Care Team Providers + +------+ + | Care Home Care Liaison Name | Role | Phone | + [...] | +--------+ + + + + | 09/16/ | Procedure | Dermatology | Ignacio Reed, | Phototherapy (NBUVB) | | 2008 | | Phototherapy at [facility] | MD [address] | | | | | [address] | [place], [place] | | | | | [facility] | [address] | | | | | and [place]q, | [phone] | | | | | | | | | | | [place], [place] | | | | | | [address] | | | | | | [phone] | | | +--------+ + + + [...] encounter Progress Notes Krista Garcia Lpn - 09/16/2008 1:05 PM PDT PHOTOTHERAPY DOC FLOWSHEET RESPONSES [[id number]][ 09/16/2008 Orientation NO Time 12:56 PM MD [...] Nurse #2 Comments PHOTOTHERAPY DOC FLOWSHEET RESPONSES [[id number]][ 09/12/2008 Orientation NO Time 3:30 PM MD Orders 06/09/08 Start NBUVB @ 75mj increase 50mj each treatment to a maximum of 1000mj. Two times a week apply sunscreen to face per Dr. Zaragoza Ttl # of Treatments 24 DIAGNOSIS psoriasis Site #1 body Type NBUVB Prescr Dose 1000mj Actual Dose 1002mj Predict Time 3:46min Actual Time 2:14min On Stool none New Meds no Sleep [...]
--- OUTSIDE RECORDS SUMMARY | ~2020-04-11 | XMS | Encounter Summary ---
Demographics + + + | Address | [address] | | | [place] [address] | + + + | Home Phone | | + + + | Preferred Language | Unknown | + + + | Marital Status | Single | + + + | Christianity Affiliation | UNK | + + + [...] Team Providers + +------+ + | Care Public Health Technician Name | Role | Phone | + +------+ + | No Pcp Per Patient | PCP | Unavailable | + +------+ + Encounter Details +--------+ + + + + | Date | Type | Department | Care Team | Description | +--------+ + + + + | 11/02/ | Documentati | Dermatology | Jeyson Zaragoza, | | | 2009 | on | Medical at [facility] [address] | MD | | | | | [facility] | | | | | | [facility] and | | | | | | [facility], | | | | | | [facility] | | | | | | [place], [place] | | | | | | [address] | | | | | | [phone] | | | +--------+ + + + [...] this encounter Miscellaneous Notes Telephone Encounter - Krista Garcia Lpn - 11/02/2009 9:23 AM PDTOpen in errorElectronicall y signed by Krista Garcia Lpn at 11/02/2009 9:23 AM PDTdocumented in this encounter Plan of Treatment Not on filedocumented as of this encounter Visit Diagnoses Not on filedocumented in this encounter"
--- OUTSIDE RECORDS SUMMARY | ~2020-04-11 | XMS | Encounter Summary ---
Demographics + + + | Address | [address] | | | [place] [address] | + + + | Home Phone [...] Author + + + | Author | [facility] | + + + | Organization | [facility] | + + + | Address | Unknown | + + + | Phone | Unavailable | + + + Care Team Providers + +------+ + | Care Machine Joiner Cementer Name | Role | Phone | + [...] | +--------+ + + + + | 09/30/ | Procedure | Dermatology | | Phototherapy (NBUVB) | | 2008 | | Phototherapy at [facility] | | | | | | [address] | | | | | | [facility] | | | | | | and Healing, | | | | | | Building | | | | | | Floor [place], [place] | | | | | | [address] | | | | | | [phone] | | | +--------+ + + + [...] this encounter Progress Notes Brandin Lundberg - 09/30/2008 5:03 PM PDT PHOTOTHERAPY DOC FLOWSHEET RESPONSES [[id number]][ 09/30/2008 Orientation NO Time 3:51 PM MD Orders 06/09/08 Start NBUVB @ 75mj increase 50mj each treatment to a maximum of 1000mj. Two times a week apply sunscreen to face per Dr. Zaragoza Ttl # of Treatments 29 DIAGNOSIS psoriasis Site #1 body Type NBUVB Prescr Dose 1000mj Actual Dose 1003mj Predict Time 3:59 Actual Time 2:36min On Stool none New Meds no Sleep OK YES Psoralen Taken? n/a PUVA Med Nausea NA - NOT APPLICABLE Erythema Grade 0 Blisters NO Itching NO Pain 0 MD Notified NA - NO REACTION Goggles YES Oral/Topical Meds NO Suntan Lotion face Shield none Nurse MD Nurse #2 Comments PHOTOTHERAPY DOC FLOWSHEET RESPONSES [[id number]][ 09/26/2008 Orientation NO Time 4:13 PM MD Orders 06/09/08 Start NBUVB @ 75mj increase 50mj each treatment to a maximum of 1000mj. Two times a week apply sunscreen to face per Dr. Zaragoza Ttl # of Treatments 28 DIAGNOSIS psoriasis Site #1 body Type NBUVB Prescr Dose 1000mj Actual Dose 1003mj Predict Time 3:59min Actual Time 2:35min On Stool none New Meds no Sleep [...]
--- OUTSIDE RECORDS SUMMARY | ~2020-04-11 | XMS | Encounter Summary ---
Demographics + + + | Address | [address] | | | [place] [address] | + + + | Home Phone [...] Author + + + | Author | [facility] | + + + | Organization | [facility] | + + + | Address | Unknown | + + + | Phone | Unavailable | + + + Care Team Providers + +------+ + | Care Food Handler Name | Role | Phone | + +------+ + | No Pcp Per Patient | PCP | Unavailable | + +------+ + Reason for Visit + +--------+ + | Reason | Onset | Comments | | | Date | | + +--------+ + | Phototherapy | 11/04/ | NBUVB | | | 2010 | | + +--------+ + Encounter Details +--------+ + + + + | Date | Type | Department | Care Team | Description | +--------+ + + + + | 11/04/ | Procedure | Dermatology | Ignacio Reed, | Phototherapy (NBUVB) | | 2010 | | Phototherapy at [facility] | MD [address] | | | | | [address] | [place], [place] | | | | | [facility] | [address] | | | | | and Healing, | [phone] | | | | | | | | | | | Floor [place], [place] | | | | | | [address] | | | | | | [phone] | | | +--------+ + + + [...] as of this encounter Progress Krista Carrion LPN - 11/04/2010 8:01 AM PDTPhototherapy Visit Record: Phototherapy Orientation: NO Time of Treatment: 0751 Physician Orders: 11/01/10 start NBUVB @ 900mj increase 50mj each tx to a maximum of 1000mj. Sunscreen on face or brown bag and pt stand on stool per Dr. Zaragoza Total # of Treatments: 75 DIAGNOSIS: psoriasis Treatment Site #1: body Phototherapy Type: NBUVB Prescr Dose(j or mj)_ _._ _ _: 950mj Actual Dose(j or mj)_ _._ _ _: 956mj Predicted Time (min:sec): 3:55mins Actual Time (min:sec): 2:15mins Dosage on stool: 956mj Additional Information: New meds since last visit: [...] YES Oral/topical meds taken: NO Sunscreen applied: none Shield placed over sites: brown bag over head for 100% of treatment Nurse: JAY JAY Jameson documented in this enc ounter Plan of Treatment Not on filedocumented as of this encounter Procedures + +--------+ + + + | Procedure Name | Priori | Date/Time | Associated Diagnosis | Comments | | | ty | | | | + +--------+ + + + | PHOTOTHERAPY (UVA, | Routin | 11/04/2010 | Psoriasis | | | UVB, NBUVB) - BACK | e | | | | | OFFICE | | | | | + +--------+ + + + documented in this encounter Visit Diagnoses + + | Diagnosis | + + | Psoriasis Other psoriasis | + + documented in this encounter"
--- OUTSIDE RECORDS SUMMARY | ~2020-04-11 | XMS | Encounter Summary ---
Demographics + + + | Address | [address] | | | [place] [address] | + + + | Home Phone | | + + + | Preferred Language | Unknown | + + + | Marital Status | Single | + + + | Hindu Affiliation | UNK | + + + | Race | White | + + + | Ethnic Group | Not or | + + + Author + + + | Author | [facility] | + + + | Organization | [facility] | + + + | Address | Unknown | + + + | Phone | Unavailable | + + + Care Team Providers + +------+ + | Care Client Service Consultant Name | Role | Phone | + +------+ + | No Pcp Per Patient | PCP | Unavailable | + +------+ + Reason for Visit + +--------+ + | Reason | Onset | Comments | | | Date | | + +--------+ + | Phototherapy | 09/20/ | NBUVB | | | 2010 | | + +--------+ + Encounter Details +--------+ + + + + | Date | Type | Department | Care Team | Description | +--------+ + + + + | 09/20/ | Procedure | Dermatology | Yuniel Fierro, | Phototherapy (NBUVB) | | 2010 | | Phototherapy at [facility] | ,PhD Juan | | | | | [address] | Allergy Asthma | | | | | [facility] | Dermatology [address] | | | | | and Healing, | [facility] | | | | | | [place] [address] | | | | | [place], [place] | [phone] | | | | | [address] | | | | | | [phone] | | | +--------+ + + + [...] this encounter Progress Adeline Shultz MA - 09/20/2010 8:15 AM PDTPhototherapy Visit Record: Phototherapy Orientation: NO Time of Treatment: 800 Physician Orders: 09/03/10 start NBUVB @ 400mj increase 50mj each tx to a maximum of 1000mj. Sunscreen on face and pt stand on stool per Dr. Zaragoza Total # of Treatments: 67 DIAGNOSIS: psoriasis Treatment Site #1: body Phototherapy Type: NBUVB Prescr Dose(j or mj)_ _._ _ _: 750mj Actual Dose(j or mj)_ _._ _ _: 751mj Predicted Time (min:sec): 3:02min Actual Time (min:sec): 1:54min Dosage on stool: 751mj Additional Information: New meds since last visit: [...] + | PHOTOTHERAPY (UVA, | Routin | 09/20/2010 | Psoriasis | | | UVB, NBUVB) - BACK | e | | | | | OFFICE | | | | | + +--------+ + + + documented in this encounter Visit Diagnoses + + | Diagnosis | + + | Psoriasis Other psoriasis | + + documented in this encounter"
--- OUTSIDE RECORDS SUMMARY | ~2020-04-11 | XMS | Encounter Summary ---
Demographics + + + | Address | [address] | | | [place] [address] | + + + | Home Phone [...] + + + | Author | [facility] | + + + | Organization | [facility] | + + + | Address | Unknown | + + + | Phone | Unavailable | + + + Care Team Providers + +------+ + | Care Manager Desktop Name | Role | Phone | + [...] | +--------+ + + + + | 09/04/ | Procedure | Dermatology | Ignacio Reed, | Phototherapy (NBUVB) | | 2008 | | Phototherapy at [facility] | MD [address] | | | | | [address] | [place], [place] | | | | | [facility] | [address] | | | | | and [place]q, | [phone] | | | | | [facility] | | | | | | [place], [place] | | | | | | [address] | | | | | | [phone] | | | +--------+ + + + [...] this encounter Progress Notes Brandin Lundberg - 09/04/2008 4:01 PM PST PHOTOTHERAPY DOC FLOWSHEET RESPONSES [[id number]][ 09/04/2008 Orientation NO Time 3:53 PM MD Orders 06/09/08 Start NBUVB @ [...] Nurse #2 Comments PHOTOTHERAPY DOC FLOWSHEET RESPONSES [[id number]][ 09/02/2008 Orientation NO Time 3:52 PM MD Orders 06/09/08 Start NBUVB @ 75mj increase 50mj each treatment to a maximum of 1000mj. Two times a week apply sunscreen to face per Dr. Zaragoza Ttl # of Treatments 21 DIAGNOSIS psoriasis Site #1 body Type NBUVB Prescr Dose 975mj Actual Dose 980mj Predict Time 3:37min Actual Time 2:30min On Stool none New Meds no Sleep [...]
--- OUTSIDE RECORDS SUMMARY | ~2020-04-11 | XMS | Clinical Summary ---
Demographics + + + | Address | [address] | | | [place] [address] | + + + | Home Phone [...] Author + + + | Author | [facility] | + + + | Organization | [facility] | + + + | Address | Unknown | + + + | Phone | Unavailable | + + + Care Team Providers + +------+ + | Care Farm Marketer Name | Role | Phone | + +------+ + | No Pcp Per Patient | PCP | Unavailable | + +------+ + Source Comments GABRIELLA is fully live on both EpicCare Ambulatory and EpicCare InPatient.[facility] Allergies No Known Allergies Medications + + + +---------+------+------+-------+ | Medication | Sig | Dispensed | Refills | Star | End | Statu | | | | | | t | Date | s | | | | | | Date | | | + + + +---------+------+------+-------+ | betamethasone | by Topical route two | 60 | 3 | 05/0 | | Activ | | dipropionate 0.05 % | times daily. Apply | | | 4/20 | | e | | Topical Ointment | to affected areas | | | 09 | | | + + + +---------+------+------+-------+ | clobetasol | apply to affected | 125 mL | 3 | 12/2 | | Activ | | (CLOBEX) 0.05 % | area(s) by topical | | | 2/20 | | e | | Topical Clarence, | route 2 times per | | | 11 | | | | Non-Aerosol | day and rub in | | | | | | | | gently | | | | | | + + + +---------+------+------+-------+ Active Problems + + + | Problem | Noted Date | + + + | Other psoriasis | 11/03/2008 | + + + Immunizations + + + + | Name | Administration Dates | Next Due | + + + + | Ppd (tuberculin | 06/02/2008 | | | Purified Protein | | | | Derivative) | | | + + + + Social History + [...] on file | | + + + Last Filed Vital Signs + + + + + | Vital Sign | Reading | Time Taken | Comments | + + + + + | Blood Pressure | 128/84 | 09/03/2010 11:53 AM | | | | | PST | | + + + + + | Pulse | 82 | 09/03/2010 11:53 AM | | | | | PST | | + + + + + | Temperature | - | - | | + + + + + | Respiratory Rate | 18 | 09/03/2010 11:53 AM | | | | | PST | | + + + + + | Oxygen Saturation | - | - | | + + + + + | Inhaled Oxygen | - | - | | | Concentration | | | | + + + + + | Weight | 84.9 kg (187 lb 1.6 | 09/03/2010 11:53 AM | | | | oz) | PST | | + + + + + | Height | 175 cm (5' 8.9") | 09/03/2010 11:53 AM | | | | | PST | | + + + + + | Body Mass Index | 27.71 | 09/03/2010 11:53 AM | | | | | PST | | + + + + + Plan of Treatment + + +-------+ + | Health Maintenance | Due Date | Last | Comments | | | | Done | | + + +-------+ + | Influenza (Flu) | | | | | vaccination (#1) | 0 | | | + + +-------+ + | Pneumococcal | Aged Out | | No longer eligible based on patient's age | | vaccination | | | to complete this topic | + + +-------+ + Results Not on filefrom Last 3 Months
--- OUTSIDE RECORDS SUMMARY | ~2020-04-11 | XMS | Encounter Summary ---
Demographics + + + | Address | [address] | | | [place] [address] | + + + | Home Phone | | + + + | Preferred Language | Unknown | + + + | Marital Status | Single | + + + | Denominational Affiliation | UNK | + + + | Race | White | + + + | Ethnic Group | Not or | + + + Author + + + | Author | [facility] | + + + | Organization | [facility] | + + + | Address | Unknown | + + + | Phone | Unavailable | + + + Care Team Providers + +------+ + | Care Zoo Veterinarian Name | Role | Phone | + [...] | +--------+ + + + + | 10/20/ | Procedure | Dermatology | Nadia De Luna, | Phototherapy (NBUVB) | | 2008 | | Phototherapy at [facility] | MD | | | | | [address] | | | | | | [facility] | | | | | | and [place], | | | | | | [facility] | | | | | | [place], [place] | | | | | | [address] | | | | | | [phone] | | | +--------+ + + + [...] this encounter Progress Notes Brandin Lundberg - 10/20/2008 4:11 PM PDT PHOTOTHERAPY DOC FLOWSHEET RESPONSES [[id number]][ 10/20/2008 Orientation NO Time 3:47 PM MD [...] Nurse #2 Comments PHOTOTHERAPY DOC FLOWSHEET RESPONSES [[id number]][ 10/16/2008 Orientation NO Time 3:24 PM MD Orders 06/09/08 Start NBUVB @ 75mj increase 50mj each treatment to a maximum of 1000mj. Two times a week apply sunscreen to face per Dr. Zaragoza Ttl # of Treatments 32 DIAGNOSIS psoriasis Site #1 body Type NBUVB Prescr Dose 1000mj Actual Dose 1004mj Predict Time 3:43min Actual Time 2:28min On Stool none New Meds no Sleep OK YES Psoralen Taken? n/a PUVA Med Nausea NA - NOT APPLICABLE Erythema Grade 0 Blisters NO Itching NO Pain 0 MD Notified NA - NO REACTION Goggles YES Oral/Topical Meds NO Suntan Lotion face Shield none Nurse Keiko [facility] Nurse #2 Comments documented in this encount er Plan of Treatment Not on filedocumented as of this encounter Visit Diagnoses + + | Diagnosis | + + | Other psoriasis | + + documented in this encounter"
--- OUTSIDE RECORDS SUMMARY | ~2020-04-11 | XMS | Encounter Summary ---
Demographics + + + | Address | [address] | | | [place] [address] | + + + | Home Phone | | + + + | Preferred Language | Unknown | + + + | Marital Status | Single | + + + | Mormonism Affiliation | UNK | + + + | Race | White | + + + | Ethnic Group | Not or | + + + Author + + + | Author | [facility] | + + + | Organization | [facility] | + + + | Address | Unknown | + + + | Phone | Unavailable | + + + Care Team Providers + +------+ + | Care Sonography Technologist Name | Role | Phone | [...] | +--------+ + + + + | 11/09/ | Procedure | Dermatology | Nadia De Luna, | Phototherapy (NBUVB) | | 2009 | | Phototherapy at [facility] | MD | | | | | [address] | | | | | | [facility] | | | | | | and [place], | | | | | | [facility] | | | | | | [place], [place] | | | | | | [address] | | | | | | [phone] | | | +--------+ + + + [...] this encounter Progress Notes Brandin Lundberg - 11/09/2009 4:58 PM PDT PHOTOTHERAPY DOC FLOWSHEET RESPONSES [[id number]][ 11/09/2009 Orientation NO Time 4:50 PM MD Orders 10/22/09 Start NBUVB @ 400mj increase 50mj each treatment to a maximum of 1000mj. 3 times per week.Sunscreen on face per Dr. Zaragoza Ttl # of Treatments 48 DIAGNOSIS psoriasis Site #1 body Type NBUVB Prescr Dose 650mj Actual Dose 651mj Predict Time 2:57min Actual Time 2:08min On Stool none New Meds no Sleep OK YES Psoralen Taken? n/a PUVA Med Nausea NA - NOT APPLICABLE Erythema Grade 0 Blisters NO Itching NO Pain 0 MD Notified NA - NO REACTION Goggles YES Oral/Topical Meds NO Suntan Lotion face Shield none Nurse Nurse #2 Comments PHOTOTHERAPY DOC FLOWSHEET RESPONSES [[id number]][ 11/06/2009 Orientation NO Time 7:54 AM MD Orders 10/22/09 Start NBUVB @ 400mj increase 50mj each treatment to a maximum of 1000mj. 3 times per week.Sunscreen on face per Dr. Zaragoza Ttl # of Treatments 46 DIAGNOSIS psoriasis Site #1 body Type NBUVB Prescr Dose 600mj Actual Dose 605mj Predict Time 2:43mins Actual Time 1:36mins On Stool none New Meds no Sleep OK YES Psoralen Taken? n/a PUVA Med Nausea NA - NOT APPLICABLE Erythema Grade 0 Blisters NO Itching NO Pain 0 MD Notified NA - NO REACTION Goggles YES Oral/Topical Meds NO Suntan Lotion face Shield none Nurse Gisell,WORM FARM LABORER Nurse #2 Comments documented in this encount er Plan of Treatment Not on filedocumented as of this encounter Visit Diagnoses + + | Diagnosis | + + | Other psoriasis | + + documented in this encounter"
--- OUTSIDE RECORDS SUMMARY | ~2020-04-11 | XMS | Encounter Summary ---
Demographics + + + | Address | [address] | | | [place] [address] | + + + | Home Phone | | + + + | Preferred Language | Unknown | + + + | Marital Status | Single | + + + | Yarsanism Affiliation | UNK | + + + | Race | White | + + + | Ethnic Group | Not or | + + + Author + + + | Author | [facility] | + + + | Organization | [facility] | + + + | Address | Unknown | + + + | Phone | Unavailable | + + + Care Team Providers + +------+ + | Care Speech And Hearing Director Name | Role | Phone | + [...] | +--------+ + + + + | 12/02/ | Procedure | Dermatology | Ignacio Reed, | Phototherapy (NBUVB) | | 2009 | | Phototherapy at [facility] | MD [address] | | | | | [address] | [place], [place] | | | | | [facility] | [address] | | | | | and [place], | [phone] | | | | | [facility] | | | | | | [place], [place] | | | | | | [address] | | | | | | [phone] | | | +--------+ + + + [...] documented as of this encounter Progress Notes Raul Cifuentes Lpn - 12/02/2009 8:01 AM PDT PHOTOTHERAPY DOC FLOWSHEET RESPONSES [[id number]][ 12/02/2009 Orientation NO Time 7:54 AM MD Orders 10/22/09 Start NBUVB @ 400mj increase 50mj each treatment to a maximum of 1000mj. 3 times per week.Sunscreen on face per Dr. Zaragoza Ttl # of Treatments 53 DIAGNOSIS psoriasis Site #1 body Type NBUVB Prescr Dose 400mj Actual Dose 400mj Predict Time 1:16 Actual Time 0:47mins On Stool none New Meds No Sleep OK YES Psoralen Taken? n/a PUVA Med Nausea NA - NOT APPLICABLE Erythema Grade 0 Blisters NO Itching NO Pain 0 MD Notified NA - NO REACTION Goggles YES Oral/Topical Meds NO Suntan Lotion face Shield none Nurse JAY JAY Cr Nurse #2 Comments First treatment since bulb change. Reduced 50% PHOTOTHERAPY DOC FLOWSHEET RESPONSES [[id number]][ 11/25/2009 Orientation NO Time 7:54 AM MD Orders 10/22/09 Start NBUVB @ 400mj increase 50mj each treatment to a maximum of 1000mj. 3 times per week.Sunscreen on face per Dr. Zargaoza Ttl # of Treatments 52 DIAGNOSIS psoriasis [...] Suntan Lotion face Shield none Nurse Keiko [facility] Nurse #2 Comments documented in this encounter Plan of Treatment Not on filedocumented as of this encounter Visit Diagnoses + + | Diagnosis | + + | Other psoriasis | + + documented in this encounter"
--- OUTSIDE RECORDS SUMMARY | ~2020-04-11 | XMS | Encounter Summary ---
Demographics + + + | Address | [address] | | | [place] [address] | + + + | Home Phone [...] Author + + + | Author | [facility] | + + + | Organization | [facility] | + + + | Address | Unknown | + + + | Phone | Unavailable | + + + Care Team Providers + +------+ + | Care Chip Applying Machine Tender Name | Role | Phone | + [...] | | 2009 | | Phototherapy at [facility] | MD [address] | | | | | [address] | [place], [place] | | | | | [facility] | [address] | | | | | and [place], | [phone] | | | | | | | | | | | [place], [place] | | | | | | [address] | | | | | | [phone] | | | +--------+ + + + [...] this encounter Progress Notes Giselle Ro - 11/18/2009 8:06 AM PDTFormatting of this note might be different fro m the original. PHOTOTHERAPY DOC FLOWSHEET RESPONSES [[id number]][ 11/18/2009 Orientation NO Time 7:49 AM MD [...] Suntan Lotion face Shield none Nurse Keiko [facility] Nurse #2 Comments Patient missed 9 days held dose per protocal. Patient on amoxicillin and vicodin PHOTOTHERAPY DOC FLOWSHEET RESPONSES [[id number]][ 11/09/2009 Orientation NO Time 4:50 PM Orders 10/22/09 Start NBUVB @ 400mj increase [...] MD Nurse #2 Comments documented in this en counter Plan of Treatment Not on filedocumented as of this encounter Visit Diagnoses + + | Diagnosis | + + | Other psoriasis | + + documented in this encounter"
--- OUTSIDE RECORDS SUMMARY | ~2020-04-11 | XMS | Encounter Summary ---
Demographics + + + | Address | [address] | | | [place] [address] | + + + | Home Phone | | + + + | Preferred Language | Unknown | + + + | Marital Status | Single | + + + | Church Affiliation | UNK | + + + | Race | White | + + + | Ethnic Group | Not or | + + + Author + + + | Author | [facility] | + + + | Organization | [facility] | + + + | Address | Unknown | + + + | Phone | Unavailable | + + + Care Team Providers + +------+ + | Care Commissioned Defence Force Officer Name | Role | Phone | + +------+ + | No Pcp Per Patient | PCP | Unavailable | + +------+ + Reason for Visit + +--------+ + | Reason | Onset | Comments | | | Date | | + +--------+ + | Prior Authorization | 06/03/ | clobex | | Request | 2007 | | + +--------+ + Encounter Details +--------+ + + + + | Date | Type | Department | Care Team | Description | +--------+ + + + + | 06/03/ | Telephone | Dermatology | Jeyson Zaragoza, | Prior Authorization | | 2007 | | Medical at [facility] [address] | MD | Request (clobex) | | | | [facility] | | | | | | for Health and | | | | | | [facility], [address], | | | | | | 16th Floor | | | | | | [place], [place] | | | | | | [address] | | | | | | [phone] | | | +--------+ + + + [...] Telephone Encounter - Juana Oliveira Md - 06/07/2008 9:[address] Zaragoza; h e would like to start phototherapy as follows: Start at 75 mJ/cm2. Up by 50 mJ/cm2 per treatment. Max of 1000 mJ/cm2. 2x per week Krista, could you please call the patient to schedule? I can sign the orders on Monday. . elephone Juana Patrick Md - 06/05/2008 6:12 PM PSTCalled and spoke with patient. He called his insurance company today; had not yet come to a decision yet. I told him I'd completed the Enbrel forms yesterday. I'll let him know when we hear any new info. He would like to go ahead with phototherapy while he's waiting for the Enbrel approval. I contacted Dr. Zaragoza and will call the patient back after Dr. Zaragoza and I have discusse d starting dose, etc. e lephone Encounter - Juana Oliveira Md - 06/04/2008 9:20 PM PSTReceived PA form for Enbrel; completed necessary information and placed in box to be faxed. elephone Encounter - Juana Oliveira Md - 06/03/2008 6:21 PM PSTCompleted PA form and put in box to be faxed. elephone Encounter - Lakisha Gramajo - 06/03/2008 11:12 AM PSTPa form routed to Dr. Zaragoza Rx: Clobex elephone Jacqueline Alvarez - 06/03/2008 10:45 AM PSTPa rqst recvd via fax. Rtd to pa inbox Rx: clobex 0.05% spray 59ml Qty: 59 Sig: apply to the affected area twice daily and rub in gently documented in this encounter Plan of Treatment Not on filedocumented as of this encounter Visit Diagnoses Not on filedocumented in this encounter"
--- OUTSIDE RECORDS SUMMARY | ~2020-04-11 | XMS | Encounter Summary ---
Demographics + + + | Address | [address] | | | [place] [address] | + + + | Home Phone | | + + + | Preferred Language | Unknown | + + + | Marital Status | Single | + + + | Mandaeism Affiliation | UNK | + + + | Race | White | + + + | Ethnic Group | Not or | + + + Author + + + | Author | [facility] | + + + | Organization | [facility] | + + + | Address | Unknown | + + + | Phone | Unavailable | + + + Care Team Providers + +------+ + | Care Director Of Pediatric Rehabilitation Name | Role | Phone | + [...] | +--------+ + + + + | 09/12/ | Procedure | Dermatology | Nadia De Luna, | Phototherapy (NBUVB) | | 2008 | | Phototherapy at [facility] | MD | | | | | [address] | | | | | | [facility] | | | | | | and [place], | | | | | | [facility] | | | | | | [place], [place] | | | | | | [address] | | | | | | [phone] | | | +--------+ + + + [...] this encounter Progress Notes Brandin Lundberg - 09/12/2008 3:42 PM PDT PHOTOTHERAPY DOC FLOWSHEET RESPONSES [[id number]][ 09/12/2008 Orientation NO Time 3:30 PM MD [...] Nurse #2 Comments PHOTOTHERAPY DOC FLOWSHEET RESPONSES [[id number]][ 09/09/2008 Orientation NO Time 4:05 PM MD [...]
--- OUTSIDE RECORDS SUMMARY | ~2020-04-11 | XMS | Encounter Summary ---
Demographics + + + | Address | [address] | | | [place] [address] | + + + | Home Phone [...] Team Providers + +------+ + | Care Jewel Gauger Name | Role | Phone | + [...] | +--------+ + + + + | 10/31/ | Procedure | Dermatology | Nadia De Luna, | Phototherapy (NBUVB) | | 2008 | | Phototherapy at [facility] | MD | | | | | [address] | | | | | | [facility] | | | | | | and [place], | | | | | | [facility] | | | | | | [place], [place] | | | | | | [address] | | | | | | [phone] | | | +--------+ + + + [...] documented as of this encounter Progress Notes Mason Deshpande - 10/31/2008 4:39 PM PDT Addended by: MASON DESHPANDE on: 10/31/2008 4:39:45 P M Modules accepted: Level of Service ason Deshpande - 009 2:19 PM PDT PHOTOTHERAPY DOC FLOWSHEET RESPONSES [[id number]][ 10/31/2008 Orientation NO Time 2:11 PM MD Orders 06/09/08 Start NBUVB @ [...] Nurse #2 Comments PHOTOTHERAPY DOC FLOWSHEET RESPONSES [[id number]][ 10/27/2008 Orientation NO Time 4:20 PM MD Orders 06/09/08 Start NBUVB @ 75mj increase 50mj each treatment to a maximum of 1000mj. Two times a week apply sunscreen to face per Dr. Zaragoza Ttl # of Treatments 34 DIAGNOSIS psoriasis Site #1 body Type NBUVB Prescr Dose 1000mj Actual Dose 1000mj Predict Time 4:20mins Actual Time 2:28mins On Stool none New Meds no Sleep OK YES Psoralen Taken? n/a PUVA Med Nausea NA - NOT APPLICABLE Erythema Grade 0 Blisters NO Itching NO Pain 0 MD Notified NA - NO REACTION Goggles YES Oral/Topical Meds NO Suntan Lotion face Shield none Nurse JAY JAY Jameson Nurse #2 Comments documented in this encount er Plan of Treatment Not on filedocumented as of this encounter Visit Diagnoses + + | Diagnosis | + + | Other psoriasis | + + documented in this encounter"
--- OUTSIDE RECORDS SUMMARY | ~2020-04-11 | XMS | Encounter Summary ---
Demographics + + + | Address | [address] | | | [place] [address] | + + + | Home Phone | | + + + | Preferred Language | Unknown | + + + | Marital Status | Single | + + + | Episcopalian Affiliation | UNK | + + + | Race | White | + + + | Ethnic Group | Not or | + + + Author + + + | Author | [facility] | + + + | Organization | [facility] | + + + | Address | Unknown | + + + | Phone | Unavailable | + + + Care Team Providers + +------+ + | Care Bar Host/Hostess Name | Role | Phone | + +------+ + | No Pcp Per Patient | PCP | Unavailable | + +------+ + Reason for Visit + +--------+ + | Reason | Onset | Comments | | | Date | | + +--------+ + | Phototherapy | 09/29/ | NBUVB | | | 2010 | | + +--------+ + Encounter Details +--------+ + + + + | Date | Type | Department | Care Team | Description | +--------+ + + + + | 09/29/ | Procedure | Dermatology | Ignacio Reed, | Phototherapy (NBUVB) | | 2010 | | Phototherapy at [facility] | MD [address] | | | | | [address] | [place], [place] | | | | | [facility] | [address] | | | | | and Healing, | [phone] | | | | | | | | | | | Floor [place], [place] | | | | | | [address] | | | | | | [phone] | | | +--------+ + + + [...] + documented as of this encounter Progress Giselle Medley - 09/29/2010 8:15 AM PDTPhototherapy Visit Record: Phototherapy Orientation: NO Time of Treatment: 805 Physician Orders: 09/03/10 start NBUVB @ 400mj increase 50mj each tx to a maximum of 1000mj. Sunscreen on face and pt stand on stool per Dr. Zaragoza Total # of Treatments: 69 DIAGNOSIS: psoriasis Treatment Site #1: body Phototherapy Type: NBUVB Prescr Dose(j or mj)_ _._ _ _: 850mj Actual Dose(j or mj)_ _._ _ _: 857mj Predicted Time (min:sec): 3:19min Actual Time (min:sec): 2:00min Dosage on stool: 857mj Additional Information: New meds since last visit: [...] bag over head instead of sunscreen Nurse: Keiko RUSSELL documented in this en counter Plan of Treatment Not on filedocumented as of this encounter Procedures + +--------+ + + + | Procedure Name | Priori | Date/Time | Associated Diagnosis | Comments | | | ty | | | | + +--------+ + + + | PHOTOTHERAPY (UVA, | Routin | 09/29/2010 | Psoriasis | | | UVB, NBUVB) - BACK | e | | | | | OFFICE | | | | | + +--------+ + + + documented in this encounter Visit Diagnoses + + | Diagnosis | + + | Psoriasis Other psoriasis | + + documented in this encounter"
--- OUTSIDE RECORDS SUMMARY | ~2020-04-11 | XMS | Encounter Summary ---
Demographics + + + | Address | [address] | | | [place] [address] | + + + | Home Phone | | + + + | Preferred Language | Unknown | + + + | Marital Status | Single | + + + | Congregation Affiliation | UNK | + + + | Race | White | + + + | Ethnic Group | Not or | + + + Author + + + | Author | [facility] | + + + | Organization | [facility] | + + + | Address | Unknown | + + + | Phone | Unavailable | + + + Care Team Providers + +------+ + | Care Cinder Crew Worker Name | Role | Phone | [...] | +--------+ + + + + | 08/11/ | Procedure | Dermatology | | Phototherapy (NBUVB) | | 2008 | | Phototherapy at [facility] | | | | | | [address] | | | | | | [facility] | | | | | | and Healing, | | | | | | Building | | | | | | Floor [place], [place] | | | | | | [address] | | | | | | [phone] | | | +--------+ + + + [...] encounter Progress Notes Giselle Ro D - 08/11/2008 9:32 AM PSTFormatting of this note might be different fro m the original. PHOTOTHERAPY DOC FLOWSHEET RESPONSES [[id number]][ 08/11/2008 Orientation NO Time 9:07 AM MD Orders 06/09/08 Start NBUVB @ 75mj increase 50mj each treatment to a maximum of 1000mj. Two times a week apply sunscreen to face per Dr. Zaragoza Ttl # of Treatments 15 DIAGNOSIS psoriasis Site #1 body Type NBUVB Prescr Dose 725mj Actual Dose 732mj Predict Time 2:32min Actual Time 1:38min On Stool none New Meds no Sleep OK YES Psoralen Taken? n/a PUVA Med Nausea NA - NOT APPLICABLE Erythema Grade 0 Blisters NO Itching NO Pain 0 MD Notified NA - NO REACTION Goggles YES Oral/Topical Meds NO Suntan Lotion face Shield none Nurse Keiko [facility] Nurse #2 Comments PHOTOTHERAPY DOC FLOWSHEET RESPONSES [[id number]][ 08/08/2008 Orientation NO Time 3:55 PM MD Orders 06/09/08 Start NBUVB @ 75mj increase 50mj each treatment to a maximum of 1000mj. Two times a week apply sunscreen to face per Dr. Zaragoza Ttl # of Treatments 14 DIAGNOSIS psoriasis Site #1 body Type NBUVB Prescr Dose 675mj Actual Dose 682mj Predict Time 2:22min Actual Time 1:38min On Stool none New Meds no Sleep OK YES Psoralen Taken? n/a PUVA Med Nausea NA - NOT APPLICABLE Erythema Grade 0 Blisters NO Itching NO Pain 0 MD Notified NA - NO REACTION Goggles YES Oral/Topical Meds NO Suntan Lotion face Shield none Nurse Nurse #2 JRalokz Comments documented in this en counter Plan of Treatment Not on filedocumented as of this encounter Visit Diagnoses + + | Diagnosis | + + | Other psoriasis | + + documented in this encounter"
--- OUTSIDE RECORDS SUMMARY | ~2020-04-11 | XMS | Encounter Summary ---
Demographics + + + | Address | [address] | | | [place] [address] | + + + | Home Phone | | + + + | Preferred Language | Unknown | + + + | Marital Status | Single | + + + | Gnosticism Affiliation | UNK | + + + | Race | White | + + + | Ethnic Group | Not or | + + + Author + + + | Author | [facility] | + + + | Organization | [facility] | + + + | Address | Unknown | + + + | Phone | Unavailable | + + + Care Team Providers + +------+ + | Care Cut Off Saw Operator Pipe Blanks Name | Role | Phone | + +------+ + | No Pcp Per Patient | PCP | Unavailable | + +------+ + Reason for Visit + +--------+ + | Reason | Onset | Comments | | | Date | | + +--------+ + | Refill Request | 06/23/ | | | | 2010 | | + +--------+ + Encounter Details +--------+--------+ + + + | Date | Type | Department | Care Team | Description | +--------+--------+ + + + | 06/23/ | Refill | Dermatology | Yuniel Fierro, | Refill Request | | 2010 | | Medical at [facility] [address] | ,PhD Juan | | | | | [facility] | Allergy Asthma | | | | | for [facility] and | Dermatology [address] | | | | [place] [address], | [facility] | | | | | 16th Floor | [place] [address] | | | | | [place], [place] | [phone] | | | | | [address] | | | | | | [phone] | | | +--------+--------+ + + + Social History + +-------+ [...] this encounter Miscellaneous Notes Telephone Encounter - Dwaine Lakisha - 06/23/2011 9:29 AM PSTDiagnosis for Medication: 696.1 Other psoriasis Date of Last Refill for this Medication: 06/14/10 Date Patient Last Seen: 09/03/10 at 11:30 am Future Appointment Date in Clinic: No future appointments scheduled in Dermatology. Medication Previously Denied: No Routed to schedulers to call pt to make appt Electronically signed by Lakisha Isidro at 1 08/24/2010 9:30 AM PSTdocumented in this encounter Plan of Treatment Not on filedocumented as of this encounter Visit Diagnoses + + | Diagnosis | + + | Other psoriasis - Primary | + + documented in this encounter"
--- OUTSIDE RECORDS SUMMARY | ~2020-04-11 | XMS | Encounter Summary ---
Demographics + + + | Address | [address] | | | [place] [address] | + + + | Home Phone | | + + + | Preferred Language | Unknown | + + + | Marital Status | Single | + + + | Buddhist Affiliation | UNK | + + + | Race | White | + + + | Ethnic Group | Not or | + + + Author + + + | Author | [facility] | + + + | Organization | [facility] | + + + | Address | Unknown | + + + | Phone | Unavailable | + + + Care Team Providers + +------+ + | Care Gut Cleaner Name | Role | Phone | + +------+ + | No Pcp Per Patient | PCP | Unavailable | + +------+ + Reason for Visit + +--------+ + | Reason | Onset | Comments | | | Date | | + +--------+ + | Prior Authorization | 06/06/ | enbrel | | Request | 2007 | | + +--------+ + Encounter Details +--------+ + + + + | Date | Type | Department | Care Team | Description | +--------+ + + + + | 06/06/ | Telephone | Dermatology | Jeyson Zaragoza, | Prior Authorization | | 2007 | | Medical at [facility] [address] | MD | Request (enbrel) | | | | [facility] | | | | | | for Health and | | | | | | [facility], [address], | | | | | | 16th Floor | | | | | | [place], [place] | | | | | | [address] | | | | | | [phone] | | | +--------+ + + + [...] Notes Telephone Encounter - Lakisha Isidro - 06/09/2008 9:05 AM PSTPa form routed to Dr. Mey boyce more info needed Rx; enbrel elephone Jerry acevedo - Jacqueline Avila - 06/06/2008 3:23 PM PSTPa regencerx form recvd via fax. Rtd to naldo hernández Rx: enbrel documented in this enc ounter Plan of Treatment Not on filedocumented as of this encounter Visit Diagnoses Not on filedocumented in this encounter"
--- OUTSIDE RECORDS SUMMARY | ~2020-04-11 | XMS | Encounter Summary ---
Demographics + + + | Address | [address] | | | [place] [address] | + + + | Home Phone [...] Team Providers + +------+ + | Care Gastroenterology Professor Name | Role | Phone | + [...] | +--------+ + + + + | 07/29/ | Procedure | Dermatology | | Phototherapy (NBUVB) | | 2008 | | Phototherapy at [facility] | | | | | | [address] | | | | | | [facility] | | | | | | and Healing, | | | | | | Building | | | | | | Floor [place], [place] | | | | | | [address] | | | | | | [phone] | | | +--------+ + + + [...] encounter Progress Notes Krista Garcia Lpn - 07/29/2008 3:50 PM PST PHOTOTHERAPY DOC FLOWSHEET RESPONSES [1975][ 07/29/2008 Orientation NO Time 3:42 PM MD [...] face Shield none Nurse Md Nurse #2 Nani GOYAL Comments PHOTOTHERAPY DOC FLOWSHEET RESPONSES [5445][ 07/25/2008 Orientation Time 3:56 PM MD Orders [...] dds Nurse #2 Comments documented in this enco unter Plan of Treatment Not on filedocumented as of this encounter Visit Diagnoses + + | Diagnosis | + + | Other psoriasis | + + documented in this encounter"
--- OUTSIDE RECORDS SUMMARY | ~2020-04-11 | XMS | Encounter Summary ---
Demographics + + + | Address | [address] | | | [place] [address] | + + + | Home Phone | | + + + | Preferred Language | Unknown | + + + | Marital Status | Single | + + + | Mormon Affiliation | UNK | + + + | Race | White | + + + | Ethnic Group | Not or | + + + Author + + + | Author | [facility] | + + + | Organization | [facility] | + + + | Address | Unknown | + + + | Phone | Unavailable | + + + Care Team Providers + +------+ + | Care Welding Machine Operator Friction Name | Role | Phone | + [...] | +--------+ + + + + | 09/26/ | Procedure | Dermatology | Nadia De Luna, | Phototherapy (NBUVB) | | 2008 | | Phototherapy at [facility] | MD | | | | | [address] | | | | | | [facility] | | | | | | and [place], | | | | | | [facility] | | | | | | [place], [place] | | | | | | [address] | | | | | | [phone] | | | +--------+ + + + [...] this encounter Progress Notes Brandin Lundberg - 09/26/2008 4:00 PM PDT PHOTOTHERAPY DOC FLOWSHEET RESPONSES [2806][ 09/26/2008 Orientation NO Time 4:13 PM MD [...] Nurse #2 Comments PHOTOTHERAPY DOC FLOWSHEET RESPONSES [0653][ 09/23/2008 Orientation NO Time 4:13 PM MD [...]
--- OUTSIDE RECORDS SUMMARY | ~2020-04-11 | XMS | Encounter Summary ---
Demographics + + + | Address | [address] | | | [place] [address] | + + + | Home Phone [...] Author + + + | Author | [facility] | + + + | Organization | [facility] | + + + | Address | Unknown | + + + | Phone | Unavailable | + + + Care Team Providers + +------+ + | Care Evp Name | Role | Phone | + [...] | +--------+ + + + + | 10/28/ | Procedure | Dermatology | Ignacio Reed, | Phototherapy (NBUVB) | | 2009 | | Phototherapy at [facility] | MD [address] | | | | | [address] | [place], [place] | | | | | [facility] | [address] | | | | | and [address], | [phone] | | | | | [facility] | | | | | | [place], [place] | | | | | | [address] | | | | | | [phone] | | | +--------+ + + + [...] this encounter Progress Notes Brandin Lundberg - 10/28/2009 4:55 PM PDT PHOTOTHERAPY DOC FLOWSHEET RESPONSES [1543][ 10/28/2009 Orientation NO Time 4:40 PM MD Orders 10/28/09 Start NBUVB @ 400mj increase 50mj each treatment to a maximum of 1000mj. 3 times per week.Sunscreen on face per Dr. Zaragoza Ttl # of Treatments 43 DIAGNOSIS psoriasis Site #1 body Type NBUVB Prescr Dose 400mj Actual Dose 403mj Predict Time 1:43min Actual Time 1:08min On Stool none New Meds no Sleep OK YES Psoralen Taken? n/a PUVA Med Nausea NA - NOT APPLICABLE Erythema Grade 0 Blisters NO Itching NO Pain 0 MD Notified NA - NO REACTION Goggles YES Oral/Topical Meds NO Suntan Lotion face Shield none Nurse MD Nurse #2 Comments PHOTOTHERAPY DOC FLOWSHEET RESPONSES [[id number]][ 10/19/2009 Orientation NO Time 2:03 PM MD Orders 4/05/10 Start NBUVB @ 300mj increase 50mj each [...] NO Suntan Lotion face Shield none Nurse Gisell,MAGNETIC TAPE COMPOSER OPERATOR Nurse #2 Comments note sent to Dr. Zaragoza to request no stool as patient refuses to use & have tony atment three times a week. documented in this encount er Plan of Treatment Not on filedocumented as of this encounter Visit Diagnoses + + | Diagnosis | + + | Other psoriasis | + + documented in this encounter"
--- OUTSIDE RECORDS SUMMARY | ~2020-04-11 | XMS | Encounter Summary ---
Demographics + + + | Address | [address] | | | [place] [address] | + + + | Home Phone | | + + + | Preferred Language | Unknown | + + + | Marital Status | Single | + + + | Yazdanism Affiliation | UNK | + + + | Race | White | + + + | Ethnic Group | Not or | + + + Author + + + | Author | [facility] | + + + | Organization | [facility] | + + + | Address | Unknown | + + + | Phone | Unavailable | + + + Care Team Providers + +------+ + | Care Geothermal Field Technician Name | Role | Phone | + +------+ + | No Pcp Per Patient | PCP | Unavailable | + +------+ + Reason for Visit + +--------+ + | Reason | Onset | Comments | | | Date | | + +--------+ + | Erroneous Encounter | 03/03/ | | | - Disregard | 2008 | | + +--------+ + Encounter Details +--------+---------+ + + + | Date | Type | Department | Care Team | Description | +--------+---------+ + + + | 03/02/ | Office | Dermatology | Jeyson Zaragoza, | ERRONEOUS ENCOUNTER | | 2008 | Visit | Medical at [facility] [address] | MD | - NO DIAGNOSIS | | | | [facility] | | (Primary Dx) | | | | for Health and | | | | | | [facility], [address], | | | | | | 16th Floor | | | | | | [place], [place] | | | | | | [address] | | | | | | [phone] | | | +--------+---------+ + + + [...] documented as of this encounter Progress Notes Jeyson Zaragoza MD - 03/03/2009 8:22 AM PDTThis encounter was opened in error. Please denton jaimesegaroger this note. Stella Chavez MD - 03/02/2009 6:42 AM PDTEx[facility] ([facility]) FOLLOW-UP VISIT S: From previous visits: Walt Cerna is a 38 y.o. male with a history of psorias is for 36 years. As a toddler, he had involvement of his scalp and received light therapy, a nd during his childhood and adolescence he had persistent knee plaques. In his early 20's, h e developed plaques on his elbows, and in his late 20's he started getting Kenalog injection s intralesionally. Pt used tanning beds TIW for 3-4 years. He started taking MTX at age 27, advanced up to 25 mg weekly and had nearly 100% clearance for 7 years, but then had worsenin g while still on MTX; had a liver biopsy roughly 2 years ago, which was normal. Winter time is when his psoriasis is at its worst and stress is a significant exacerbating factor. He h as been on numerous topical therapies in the past, including corticosteroids, Dovonex, and T azorac. At his initial visit in 06/09 he had involvement of knees, shoulders, hips, palms. H is father has a history of MS, so he was hesitant to start Enbrel which he was approved for. In 06/09 he was started on NBUVB BIW with max dose of 1000mj. 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 He has no t been evaluated by Dr. Duggan. Since his [...] BID prn spot therapy RTC: 4 months Stella Chavez M.D. Resident, Department of Dermatology [facility] documented in this en counter Plan of Treatment Not on filedocumented as of this encounter Visit Diagnoses + + | Diagnosis | + + | ERRONEOUS ENCOUNTER - NO DIAGNOSIS - Primary | + + documented in this encounter"
--- OUTSIDE RECORDS SUMMARY | ~2020-04-11 | XMS | Encounter Summary ---
Demographics + + + | Address | [address] | | | [place] [address] | + + + | Home Phone | | + + + | Preferred Language | Unknown | + + + | Marital Status | Single | + + + | Mu-Ism Affiliation | UNK | + + + [...] Team Providers + +------+ + | Care Inspector Screen Printing Name | Role | Phone | + +------+ + | No Pcp Per Patient | PCP | Unavailable | + +------+ + Encounter Details +--------+ + + + + | Date | Type | Department | Care Team | Description | +--------+ + + + + | 07/07/ | Procedure | Dermatology | | | | 2008 | | Phototherapy at [facility] | | | | | | [address] | | | | | | [facility] | | | | | | and Healing, | | | | | | Building | | | | | | Floor [place], [place] | | | | | | [address] | | | | | | [phone] | | | +--------+ + + + [...] encounter Progress Robert Yanes Cna, Keri - 07/07/2008 4:09 PM PSTFormatting of this note might be different f rom the original. PHOTOTHERAPY DOC FLOWSHEET RESPONSES [[id number]][ 07/07/2008 Orientation Time 4:04 PM MD Orders 06/09/08 Start NBUVB @ 75mj increase 50mj each treatment to a maximum of 1000mj. Two times a week apply sunscreen to face per Dr. Zaragoza Ttl # of Treatments 6 DIAGNOSIS psoriasis Site #1 body Type NBUVB Prescr Dose 275mj Actual Dose 276mj Predict Time 0:53 Actual Time 0:38 On Stool none New Meds no Sleep OK YES Psoralen Taken? n/a PUVA Med Nausea NA - NOT APPLICABLE Erythema Grade 0 Blisters NO Itching NO Pain 0 MD Notified NA - NO REACTION Goggles YES Oral/Topical Meds NO Suntan Lotion face Shield none Nurse dds Comments PHOTOTHERAPY DOC FLOWSHEET RESPONSES [[id number]][ 07/02/2008 Orientation NO Time 3:31 PM MD [...] face Shield none Nurse Keiko RUSSELL Comments documented in this encounter Plan of Treatment Not on filedocumented as of this encounter Visit Diagnoses + + | Diagnosis | + + | Other psoriasis | + + documented in this encounter"
--- OUTSIDE RECORDS SUMMARY | ~2020-04-11 | XMS | Encounter Summary ---
Demographics + + + | Address | [address] | | | [place] [address] | + + + | Home Phone [...] Team Providers + +------+ + | Care Assembling Inspector Name | Role | Phone | [...] | +--------+ + + + + | 09/02/ | Procedure | Dermatology | Ignacio Reed, | Phototherapy (NBUVB) | | 2008 | | Phototherapy at [facility] | MD [address] | | | | | [address] | [place], [place] | | | | | [facility] | [address] | | | | | and Tariq, | [phone] | | | | | [facility] | | | | | | [place], [place] | | | | | | [address] | | | | | | [phone] | | | +--------+ + + + [...] this encounter Progress Notes Brandin Lundberg - 09/02/2008 4:01 PM PST PHOTOTHERAPY DOC FLOWSHEET RESPONSES [[id number]][ 09/02/2008 Orientation NO Time 3:52 PM MD [...] Nurse #2 Comments PHOTOTHERAPY DOC FLOWSHEET RESPONSES [[id number]][ 08/28/2008 Orientation NO Time 4:34 PM MD Orders 06/09/08 Start NBUVB @ 75mj increase 50mj each treatment to a maximum of 1000mj. Two times a week apply sunscreen to face per Dr. Zaragoza Ttl # of Treatments 20 DIAGNOSIS psoriasis Site #1 body Type NBUVB Prescr Dose 925mj Actual Dose 925mj Predict Time 3:19min Actual Time 2:17min On Stool none New Meds no Sleep [...]
--- OUTSIDE RECORDS SUMMARY | ~2020-04-11 | XMS | Encounter Summary ---
Demographics + + + | Address | [address] | | | [place] [address] | + + + | Home Phone | | + + + | Preferred Language | Unknown | + + + | Marital Status | Single | + + + | Mandaen Affiliation | UNK | + + + | Race | White | + + + | Ethnic Group | Not or | + + + Author + + + | Author | [facility] | + + + | Organization | [facility] | + + + | Address | Unknown | + + + | Phone | Unavailable | + + + Care Team Providers + +------+ + | Care Director Emergency Name | Role | Phone | + +------+ + | No Pcp Per Patient | PCP | Unavailable | + +------+ + Reason for Visit + +--------+ + | Reason | Onset | Comments | | | Date | | + +--------+ + | Phototherapy | 10/04/ | NBUVB | | | 2010 | | + +--------+ + Encounter Details +--------+ + + + + | Date | Type | Department | Care Team | Description | +--------+ + + + + | 10/04/ | Procedure | Dermatology | Yuniel Fierro, | Phototherapy (NBUVB) | | 2010 | | Phototherapy at [facility] | ,PhD Juan | | | | | [address] | Allergy Asthma | | | | | [facility] | Dermatology [address] | | | | | and Healing, | [facility] | | | | | | [place] [address] | | | | | [place], [place] | [phone] | | | | | [address] | | | | | | [phone] | | | +--------+ + + + [...] this encounter Progress Adeline Shultz MA - 10/04/2010 8:15 AM PDTPhototherapy Visit Record: Phototherapy Orientation: NO Time of Treatment: 0759 Physician Orders: 09/03/10 start NBUVB @ 400mj increase 50mj each tx to a maximum of 1000mj. Sunscreen on face and pt stand on stool per Dr. Zaragoza Total # of Treatments: 70 DIAGNOSIS: psoriasis Treatment Site #1: body Phototherapy Type: NBUVB Prescr Dose(j or mj)_ _._ _ _: 900mj Actual Dose(j or mj)_ _._ _ _: 905mj Predicted Time (min:sec): 3:31min Actual Time (min:sec): 2:10min Dosage on stool: 905mj Additional Information: New meds since last visit: [...] bag over head instead of sunscreen Nurse: ramses ureña documented in this e ncounter Plan of Treatment Not on filedocumented as of this encounter Procedures + +--------+ + + + | Procedure Name | Priori | Date/Time | Associated Diagnosis | Comments | | | ty | | | | + +--------+ + + + | PHOTOTHERAPY (UVA, | Routin | 10/04/2010 | Psoriasis | | | UVB, NBUVB) - BACK | e | | | | | OFFICE | | | | | + +--------+ + + + documented in this encounter Visit Diagnoses + + | Diagnosis | + + | Psoriasis Other psoriasis | + + documented in this encounter"
--- OUTSIDE RECORDS SUMMARY | ~2020-04-11 | XMS | Encounter Summary ---
Demographics + + + | Address | [address] | | | [place] [address] | + + + | Home Phone | | + + + | Preferred Language | Unknown | + + + | Marital Status | Single | + + + | Orthodox Affiliation | UNK | + + + [...] Team Providers + +------+ + | Care Mill Hand Plate Mill Name | Role | Phone | + [...] | +--------+ + + + + | 11/06/ | Procedure | Dermatology | Ignacio Reed, | Phototherapy (NBUVB) | | 2008 | | Phototherapy at [facility] | MD [address] | | | | | [address] | [place], [place] | | | | | [facility] | [address] | | | | | and [place]ariq, | [phone] | | | | | [facility] | | | | | | [place], [place] | | | | | | [address] | | | | | | [phone] | | | +--------+ + + + [...] this encounter Progress Notes Brandin Lundberg - 11/06/2008 4:14 PM PDT PHOTOTHERAPY DOC FLOWSHEET RESPONSES [[id number]][ 11/06/2008 Orientation NO Time 4:03 PM Orders [id number] Start NBUVB @ 1000mj & increase by 25mj each treatment to a maximum of 140 0mj. Cover genitials & sunscreen to face two times a week per Dr. [place] Zaragoza Ttl # of Treatments 37 DIAGNOSIS psoriasis Site #1 body Type NBUVB Prescr Dose 1025mj Actual Dose 1029mj Predict Time 4:21 Actual Time 2:38min On Stool none New Meds no Sleep OK YES Psoralen Taken? n/a PUVA Med Nausea NA - NOT APPLICABLE Erythema Grade 0 Blisters NO Itching NO Pain 0 MD Notified NA - NO REACTION Goggles YES Oral/Topical Meds NO Suntan Lotion face Shield none Nurse Nurse #2 Comments PHOTOTHERAPY DOC FLOWSHEET RESPONSES [[id number]][ 11/03/2008 Orientation NO Time 9:16 AM Orders [id number] Start NBUVB @ 1000mj & increase by [...]
--- OUTSIDE RECORDS SUMMARY | ~2020-04-11 | XMS | Encounter Summary ---
Demographics + + + | Address | [address] | | | [place] [address] | + + + | Home Phone [...] + + + | Author | [facility] | + + + | Organization | [facility] | + + + | Address | Unknown | + + + | Phone | Unavailable | + + + Care Team Providers + +------+ + | Care Greens Keeper Name | Role | Phone | [...] | +--------+ + + + + | 10/16/ | Procedure | Dermatology | Ignacio Reed, | Phototherapy (NBUVB) | | 2008 | | Phototherapy at [facility] | MD [address] | | | | | [address] | [place], [place] | | | | | [facility] | [address] | | | | | and [place]q, | [phone] | | | | | | | | | | | [place], [place] | | | | | | [address] | | | | | | [phone] | | | +--------+ + + + [...] this encounter Progress Notes Giselle Ro - 10/16/2008 3:49 PM PDTFormatting of this note might be different fro m the original. PHOTOTHERAPY DOC FLOWSHEET RESPONSES [[id number]][ 10/16/2008 Orientation NO Time 3:24 PM MD [...] Suntan Lotion face Shield none Nurse Keiko [facility] Nurse #2 Comments PHOTOTHERAPY DOC FLOWSHEET RESPONSES [[id number]][ 10/13/2008 Orientation NO Time 4:14 PM MD [...] Nurse Nurse #2 Comments documented in this en counter Plan of Treatment Not on filedocumented as of this encounter Visit Diagnoses + + | Diagnosis | + + | Other psoriasis | + + documented in this encounter"
--- OUTSIDE RECORDS SUMMARY | ~2020-04-11 | XMS | Encounter Summary ---
Demographics + + + | Address | [address] | | | [place] [address] | + + + | Home Phone | | + + + | Preferred Language | Unknown | + + + | Marital Status | Single | + + + | Faith Affiliation | UNK | + + + [...] Team Providers + +------+ + | Care Occupational Therapy Co Director Name | Role | Phone | + +------+ + | No Pcp Per Patient | PCP | Unavailable | + +------+ + Encounter Details +--------+ + + + + | Date | Type | Department | Care Team | Description | +--------+ + + + + | 10/05/ | Breakfast Host | Dermatology | Jeyson Zaragoza, | Other psoriasis | | 2009 | | Medical at [facility] [address] | MD | (Primary Dx) | | | | S [facility] | | | | | | for Health and | | | | | | Healing, [address], | | | | | | 16th Floor | | | | | | [place], [place] | | | | | | [address] | | | | | | [phone] | | | +--------+ + + + [...] + + documented as of this encounter Plan of Treatment Not on filedocumented as of this encounter Visit Diagnoses + + | Diagnosis | + + | Other psoriasis - Primary | + + documented in this encounter"
--- OUTSIDE RECORDS SUMMARY | ~2020-04-11 | XMS | Encounter Summary ---
Demographics + + + | Address | [address] | | | [place] [address] | + + + | Home Phone [...] Team Providers + +------+ + | Care Dermatology Physician Name | Role | Phone | + +------+ + | No Pcp Per Patient | PCP | Unavailable | + +------+ + Reason for Visit + +--------+ + | Reason | Onset | Comments | | | Date | | + +--------+ + | Erroneous Encounter | 05/08/ | | | - Disregard | 2009 | | + +--------+ + Encounter Details +--------+---------+ + + + | Date | Type | Department | Care Team | Description | +--------+---------+ + + + | 05/07/ | Office | Dermatology | Jeyson Zaragoza, | ERRONEOUS ENCOUNTER | | 2009 | Visit | Medical at [facility] [address] | MD | - NO DIAGNOSIS | | | | S [facility] | | (Primary Dx) | | | | for Health and | | | | | | Healing, [address], | | | | | | 16th Floor | | | | | | [place], [place] | | | | | | [address] | | | | | | [phone] | | | +--------+---------+ + + + [...] + documented as of this encounter Progress Jeyson Rush MD - 05/08/2010 3:14 PM PDTThis encounter was opened in error. Debbi davis this note. documented in this encounter Plan of Treatment Not on filedocumented as of this encounter Visit Diagnoses + + | Diagnosis | + + | ERRONEOUS ENCOUNTER - NO DIAGNOSIS - Primary | + + documented in this encounter"
--- OUTSIDE RECORDS SUMMARY | ~2020-04-11 | XMS | Encounter Summary ---
Demographics + + + | Address | [address] | | | [place] [address] | + + + | Home Phone [...] Team Providers + +------+ + | Care Ballroom Dancer Name | Role | Phone | + +------+ + | No Pcp Per Patient | PCP | Unavailable | + +------+ + Reason for Visit + +--------+ + | Reason | Onset | Comments | | | Date | | + +--------+ + | Erroneous Encounter | 04/03/ | | | - Disregard | 2009 | | + +--------+ + Encounter Details +--------+---------+ + + + | Date | Type | Department | Care Team | Description | +--------+---------+ + + + | 04/02/ | Office | Dermatology | Jeyson Zaragoza, | ERRONEOUS ENCOUNTER | | 2009 | Visit | Medical at [facility] [address] | MD | - NO DIAGNOSIS | | | | S [facility] | | (Primary Dx) | | | | for Health and | | | | | | Healing, [address], | | | | | | 16th Floor | | | | | | [place], [place] | | | | | | [address] | | | | | | [phone] | | | +--------+---------+ + + + [...] this encounter Progress Jeyson Rush MD - 04/03/2010 4:27 PM PDTThis encounter was opened in error. Debbi davis this note. documented in this encounter Plan of Treatment Not on filedocumented as of this encounter Visit Diagnoses + + | Diagnosis | + + | ERRONEOUS ENCOUNTER - NO DIAGNOSIS - Primary | + + documented in this encounter"
--- OUTSIDE RECORDS SUMMARY | ~2020-04-11 | XMS | Encounter Summary ---
Demographics + + + | Address | [address] | | | [place] [address] | + + + | Home Phone | | + + + | Preferred Language | Unknown | + + + | Marital Status | Single | + + + | Scientology Affiliation | UNK | + + + [...] Team Providers + +------+ + | Care Brick Pitcher Name | Role | Phone | + [...] | 2009 | | Phototherapy at [facility] | MD [address] | | | | | [address] | [place], [place] | | | | | [facility] | [address] | | | | | and [place]ariq, | [phone] | | | | | [facility] | | | | | | [place], [place] | | | | | | [address] | | | | | | [phone] | | | +--------+ + + + [...] this encounter Progress Notes Giselle Ro - 11/04/2009 8:26 AM PDTFormatting of this note might be different fro m the original. PHOTOTHERAPY DOC FLOWSHEET RESPONSES [[id number]][ 11/04/2009 Orientation NO Time 8:12 AM MD Orders 10/22/09 Start NBUVB @ 400mj increase 50mj each treatment to a maximum of 1000mj. 3 times per week.Sunscreen on face per Dr. Zaragoza Ttl # of Treatments 45 DIAGNOSIS psoriasis Site #1 body Type NBUVB Prescr Dose 550mj Actual Dose 555mj Predict Time 2:30mins Actual Time 1:27mins On Stool none New Meds no Sleep OK YES Psoralen Taken? n/a PUVA Med Nausea NA - NOT APPLICABLE Erythema Grade 0 Blisters NO Itching NO Pain 0 MD Notified NA - NO REACTION Goggles YES Oral/Topical Meds NO Suntan Lotion face Shield none Nurse Keiko [facility] Nurse #2 Comments PHOTOTHERAPY DOC FLOWSHEET RESPONSES [[id number]][ 11/02/2009 Orientation NO Time 8:20 AM MD Orders 10/22/09 Start NBUVB @ 400mj increase 50mj each treatment to a maximum of 1000mj. 3 times per week.Sunscreen on face per Dr. Zaragoza Ttl # of Treatments 44 DIAGNOSIS psoriasis Site #1 body Type NBUVB Prescr Dose 500mj Actual Dose 506mj Predict Time 2:08mins Actual Time 1:23mins On Stool none New Meds no Sleep OK YES Psoralen Taken? n/a PUVA Med Nausea NA - NOT APPLICABLE Erythema Grade 0 Blisters NO Itching NO Pain 0 MD Notified NA - NO REACTION Goggles YES Oral/Topical Meds NO Suntan Lotion face Shield none Nurse Gisell,JAY JAY Nurse #2 Comments documented in this en counter Plan of Treatment Not on filedocumented as of this encounter Visit Diagnoses + + | Diagnosis | + + | Other psoriasis | + + documented in this encounter"
--- OUTSIDE RECORDS SUMMARY | ~2020-04-11 | XMS | Encounter Summary ---
Demographics + + + | Address | [address] | | | [place] [address] | + + + | Home Phone | | + + + | Preferred Language | Unknown | + + + | Marital Status | Single | + + + | Tenriism Affiliation | UNK | + + + [...] Team Providers + +------+ + | Care Orthodontic Treatment Coordinator Name | Role | Phone | + +------+ + | No Pcp Per Patient | PCP | Unavailable | + +------+ + Encounter Details +--------+ + + + + | Date | Type | Department | Care Team | Description | +--------+ + + + + | 06/19/ | Procedure | Dermatology | | | | 2007 | | Phototherapy at [facility] | | | | | | [address] | | | | | | [facility] | | | | | | and Healing, | | | | | | Building | | | | | | Floor [place], [place] | | | | | | [address] | | | | | | [phone] | | | +--------+ + + + [...] documented as of this encounter Progress Notes Farzana Gilman, Keri - 06/19/2008 4:18 PM PSTFormatting of this note might be different f rom the original. PHOTOTHERAPY DOC FLOWSHEET RESPONSES [[id number]][ 06/19/2008 Orientation Time 4:10 PM MD Orders [...] Suntan Lotion face Shield none Nurse dds PHOTOTHERAPY DOC FLOWSHEET RESPONSES [[id number]][ 06/17/2008 Orientation Time 3:53 PM MD Orders 06/09/08 Start NBUVB @ 75mj increase 50mj each treatment to a maximum of 1000mj. Two times a week apply sunscreen to face per Dr. Zaragoza Ttl # of Treatments 2 DIAGNOSIS psoriasis Site #1 body Type NBUVB Prescr Dose 125mj Actual Dose 130mj Predict Time 0:24 Actual Time 0:19 On Stool none New Meds no Sleep OK YES Psoralen Taken? na PUVA Med Nausea NA - NOT APPLICABLE Erythema Grade 0 Blisters NO Itching NO Pain 0 MD Notified NA - NO REACTION Goggles YES Oral/Topical Meds NO Suntan Lotion face Shield none Nurse dds documented in this encounter Plan of Treatment Not on filedocumented as of this encounter Visit Diagnoses + + | Diagnosis | + + | Other psoriasis | + + documented in this encounter"
--- OUTSIDE RECORDS SUMMARY | ~2020-04-11 | XMS | Encounter Summary ---
Demographics + + + | Address | [address] | | | [place] [address] | + + + | Home Phone | | + + + | Preferred Language | Unknown | + + + | Marital Status | Single | + + + | Samaritan Affiliation | UNK | + + + [...] Team Providers + +------+ + | Care Litigation Specialist Name | Role | Phone | + [...] | +--------+ + + + + | 10/30/ | Procedure | Dermatology | Nadia De Luna, | Phototherapy (NBUVB) | | 2009 | | Phototherapy at [facility] | MD | | | | | [address] | | | | | | [facility] | | | | | | and [place]ariq, | | | | | | [facility] | | | | | | [place], [place] | | | | | | [address] | | | | | | [phone] | | | +--------+ + + + [...] this encounter Progress Notes Giselle Ro - 10/30/2009 8:47 AM PDTFormatting of this note might be different fro m the original. PHOTOTHERAPY DOC FLOWSHEET RESPONSES [[id number]][ 10/30/2009 Orientation NO Time 4:40 PM MD Orders 10/28/09 Start NBUVB @ 400mj increase 50mj each treatment to a maximum of 1000mj. 3 times per week.Sunscreen on face per Dr. Zaragoza Ttl # of Treatments 43 DIAGNOSIS psoriasis Site #1 body Type NBUVB Prescr Dose 450mj Actual Dose 452mj Predict Time 1:56min Actual Time 1:11min On Stool none New Meds no Sleep OK YES Psoralen Taken? n/a PUVA Med Nausea NA - NOT APPLICABLE Erythema Grade 0 Blisters NO Itching NO Pain 0 MD Notified NA - NO REACTION Goggles YES Oral/Topical Meds NO Suntan Lotion face Shield none Nurse Keiko [facility] Nurse #2 Comments PHOTOTHERAPY DOC FLOWSHEET RESPONSES [1002][ 10/28/2009 Orientation NO Time 4:40 PM MD [...]
--- OUTSIDE RECORDS SUMMARY | ~2020-04-11 | XMS | Encounter Summary ---
Demographics + + + | Address | [address] | | | [place] [address] | + + + | Home Phone [...] Author + + + | Author | [facility] | + + + | Organization | [facility] | + + + | Address | Unknown | + + + | Phone | Unavailable | + + + Care Team Providers + +------+ + | Care Plastic Process Technician Name | Role | Phone | + +------+ + | No Pcp Per Patient | PCP | Unavailable | + +------+ + Reason for Visit + + + | Reason | Comments | + + + | Phototherapy | standing orders | + + + Encounter Details +--------+ + + + + | Date | Type | Department | Care Team | Description | +--------+ + + + + | 10/22/ | Footwear Sales Coordinator | Dermatology | Jeyson Zaragoza, | Other psoriasis | | 2009 | | Medical at [facility] [address] | MD | (Primary Dx) | | | | [facility] | | | | | | for Health and | | | | | | Healing, [address], | | | | | | 16th Floor | | | | | | [place], [place] | | | | | | [address] | | | | | | [phone] | | | +--------+ + + + [...]
--- OUTSIDE RECORDS SUMMARY | ~2020-04-11 | XMS | Encounter Summary ---
Demographics + + + | Address | [address] | | | [place] [address] | + + + | Home Phone [...] + + + | Author | [facility] | + + + | Organization | [facility] | + + + | Address | Unknown | + + + | Phone | Unavailable | + + + Care Team Providers + +------+ + | Care Weight Count Operator Name | Role | Phone | [...] | +--------+ + + + + | 10/06/ | Procedure | Dermatology | Nadia De Luna, | Phototherapy (NBUVB) | | 2008 | | Phototherapy at [facility] | MD | | | | | [address] | | | | | | [facility] | | | | | | and [place], | | | | | | [facility] | | | | | | [place], [place] | | | | | | [address] | | | | | | [phone] | | | +--------+ + + + [...] this encounter Progress Notes Brandin Lundberg - 10/06/2008 4:08 PM PDT PHOTOTHERAPY DOC FLOWSHEET RESPONSES [[id number]][ 10/06/2008 Orientation NO Time 4:00 PM MD [...] Nurse #2 Comments PHOTOTHERAPY DOC FLOWSHEET RESPONSES [[id number]][ 09/30/2008 Orientation NO Time 3:51 PM MD [...]
--- OUTSIDE RECORDS SUMMARY | ~2020-04-11 | XMS | Encounter Summary ---
Demographics + + + | Address | [address] | | | [place] [address] | + + + | Home Phone | | + + + | Preferred Language | Unknown | + + + | Marital Status | Single | + + + | Anglican Affiliation | UNK | + + + | Race | White | + + + | Ethnic Group | Not or | + + + Author + + + | Author | [facility] | + + + | Organization | [facility] | + + + | Address | Unknown | + + + | Phone | Unavailable | + + + Care Team Providers + +------+ + | Care Slot Shift Supervisor Name | Role | Phone | [...] | +--------+ + + + + | 12/09/ | Procedure | Dermatology | | Phototherapy (NBUVB) | | 2009 | | Phototherapy at [facility] | | | | | | [address] | | | | | | [facility] | | | | | | and Healing, | | | | | | Building | | | | | | Floor [place], [place] | | | | | | [address] | | | | | | [phone] | | | +--------+ + + + [...] encounter Progress Notes Giselle Ro D - 12/09/2009 10:13 AM PDTFormatting of this note might be different fro m the original. PHOTOTHERAPY DOC FLOWSHEET RESPONSES [[id number]][ 12/09/2009 Orientation NO Time 7:56 AM MD [...] Suntan Lotion face Shield none Nurse Keiko [facility] Nurse #2 Comments Patient taking OTC allergy medication PHOTOTHERAPY DOC FLOWSHEET RESPONSES [[id number]][ 12/07/2009 Orientation NO Time 7:52 AM MD Orders 11/23/09 Start NBUVB @ 400mj increase 100mj each treatment to a maximum of 800mj t hen increase by 50mj to a maximum of 1000mj. 3 times per week.Sunscreen on face per Dr. Mey boyce Ttl # of Treatments 55 DIAGNOSIS psoriasis Site #1 body Type NBUVB Prescr Dose 600mj Actual Dose 607mj Predict Time 1:54mins Actual Time 1:09mins On Stool none New Meds No Sleep [...]
--- OUTSIDE RECORDS SUMMARY | ~2020-04-11 | XMS | Encounter Summary ---
Demographics + + + | Address | [address] | | | [place] [address] | + + + | Home Phone [...] Team Providers + +------+ + | Care Rat Exterminator Name | Role | Phone | + [...] | +--------+ + + + + | 10/12/ | Procedure | Dermatology | Nadia De Luna, | Phototherapy (NBUVB) | | 2009 | | Phototherapy at [facility] | MD | | | | | [address] | | | | | | [facility] | | | | | | and [place], | | | | | | [facility] | | | | | | [place], [place] | | | | | | [address] | | | | | | [phone] | | | +--------+ + + + [...] this encounter Progress Notes Brandin Lundberg - 10/12/2009 4:18 PM PDT PHOTOTHERAPY DOC FLOWSHEET RESPONSES [[id number]][ 10/12/2009 Orientation NO Time 4:10 PM MD [...] Nurse #2 Comments PHOTOTHERAPY DOC FLOWSHEET RESPONSES [[id number]][ 11/18/2008 Orientation NO Time 4:32 PM MD Orders [id number] Start NBUVB @ 1000mj & increase by [...] Md Nurse #2 Comments documented in this encount er Plan of Treatment Not on filedocumented as of this encounter Visit Diagnoses + + | Diagnosis | + + | Other psoriasis | + + documented in this encounter"
--- OUTSIDE RECORDS SUMMARY | ~2020-04-11 | XMS | Encounter Summary ---
Demographics + + + | Address | [address] | | | [place] [address] | + + + | Home Phone | | + + + | Preferred Language | Unknown | + + + | Marital Status | Single | + + + | Advent Affiliation | UNK | + + + | Race | White | + + + | Ethnic Group | Not or | + + + Author + + + | Author | [facility] | + + + | Organization | [facility] | + + + | Address | Unknown | + + + | Phone | Unavailable | + + + Care Team Providers + +------+ + | Care Production Director Name | Role | Phone | [...] | +--------+ + + + + | 07/15/ | Procedure | Dermatology | | Phototherapy (NBUVB) | | 2008 | | Phototherapy at [facility] | | | | | | [address] | | | | | | [facility] | | | | | | and Healing, | | | | | | Building | | | | | | Floor [place], [place] | | | | | | [address] | | | | | | [phone] | | | +--------+ + + + [...] this encounter Progress Notes Giselle Ro - 07/15/2008 4:16 PM PSTFormatting of this note might be different fro m the original. PHOTOTHERAPY DOC FLOWSHEET RESPONSES [[id number]][ 07/15/2008 Orientation NO Time 4:06 PM MD Orders 06/09/08 Start NBUVB @ 75mj increase 50mj each treatment to a maximum of 1000mj. Two times a week apply sunscreen to face per Dr. Zaragoza Ttl # of Treatments 8 DIAGNOSIS psoriasis Site #1 body Type NBUVB Prescr Dose 375mj Actual Dose 375mj Predict Time 1:15min Actual Time 0:56sec On Stool none New Meds no Sleep OK YES Psoralen Taken? n/a PUVA Med Nausea NA - NOT APPLICABLE Erythema Grade 0 Blisters NO Itching NO Pain 0 MD Notified NA - NO REACTION Goggles YES Oral/Topical Meds NO Suntan Lotion face Shield none Nurse Keiko RUSSELL Comments PHOTOTHERAPY DOC FLOWSHEET RESPONSES [[id number]][ 07/10/2008 Orientation NO Time 4:00 PM MD Orders 06/09/08 Start NBUVB @ 75mj increase 50mj each treatment to a maximum of 1000mj. Two times a week apply sunscreen to face per Dr. Zaragoza Ttl # of Treatments 7 DIAGNOSIS psoriasis Site #1 body Type NBUVB Prescr Dose 325mj Actual Dose 327mj Predict Time 1:05MINS Actual Time 0:48secs On Stool none New Meds no Sleep OK YES Psoralen Taken? n/a PUVA Med Nausea NA - NOT APPLICABLE Erythema Grade 0 Blisters NO Itching NO Pain 0 MD Notified NA - NO REACTION Goggles YES Oral/Topical Meds NO Suntan Lotion face Shield none Nurse Gisell,JAY JAY Comments documented in this en counter Plan of Treatment Not on filedocumented as of this encounter Visit Diagnoses + + | Diagnosis | + + | Other psoriasis | + + documented in this encounter"
--- OUTSIDE RECORDS SUMMARY | ~2020-04-11 | XMS | Encounter Summary ---
Demographics + + + | Address | [address] | | | [place] [address] | + + + | Home Phone [...] Author + + + | Author | [facility] | + + + | Organization | [facility] | + + + | Address | Unknown | + + + | Phone | Unavailable | + + + Care Team Providers + +------+ + | Care Water Treatment Plant Operator Name | Role | Phone | + +------+ + | No Pcp Per Patient | PCP | Unavailable | + +------+ + Reason for Visit + +--------+ + | Reason | Onset | Comments | | | Date | | + +--------+ + | Prior Authorization | 06/10/ | Response: Enbrel 50mg/8 injection(s) | | Request | 2007 | | + +--------+ + Encounter Details +--------+ + + + + | Date | Type | Department | Care Team | Description | +--------+ + + + + | 06/10/ | Telephone | Dermatology | Jeyson Zaragoza, | Prior Authorization | | 2007 | | Medical at [facility] [address] | MD | Request (Response: | | | | [address] | | Enbrel 50mg/8 | | | | for Health and | | injection(s)) | | | | Healing, [address], | | | | | | [address]th Floor | | | | | | [place], [place] | | | | | | [address] | | | | | | [phone] | | | +--------+ + + + [...] this encounter Miscellaneous Notes Telephone Encounter - Brian Pacheco - 12/20/2011 2:08 PM PDTThis encounter has been admin istratively closed with the authorization of the [facility] Committee. elephone Encounter - Juana Oliveira Md - 06/10/2008 5:46 PM PSTCalled patient to let him know that Enbrel was approv ed. He has phototherapy training scheduled for . Spoke with Lisa Esteves RN and s he is going to try to arrange for the Enbrel injection training to be scheduled on the same day. Gave patient the number to schedule injection training ([phone]) in case Lisa can't w ork it out tonight. el ephone Encounter - Lakisha Isidro - 06/10/2008 1:16 PM PSTPa routed to Dr. Zaragoza Rx: enbrel Approved elephone Mary Avina Do - 06/10/2008 9:00 AM PSTPA response recv'd via fax Drug: Enbrel 50mg/8 injection(s) *fax rtd to [facility] inbox documented in this encounter Plan of Treatment Not on filedocumented as of this encounter Visit Diagnoses Not on filedocumented in this encounter"
--- OUTSIDE RECORDS SUMMARY | ~2020-04-11 | XMS | Encounter Summary ---
Demographics + + + | Address | [address] | | | [place] [address] | + + + | Home Phone | | + + + | Preferred Language | Unknown | + + + | Marital Status | Single | + + + | Sabianism Affiliation | UNK | + + + [...] Team Providers + +------+ + | Care Edger Runner Name | Role | Phone | + [...] | +--------+ + + + + | 12/29/ | Procedure | Dermatology | Ignacio Reed, | Phototherapy (NBUVB) | | 2009 | | Phototherapy at [facility] | MD [address] | | | | | [address] | [place], [place] | | | | | [facility] | [address] | | | | | and [address], | [phone] | | | | | | | | | | | [place], [place] | | | | | | [address] | | | | | | [phone] | | | +--------+ + + + [...] encounter Progress Notes Krista Garcia Lpn - 12/29/2009 8:54 AM PDT PHOTOTHERAPY DOC FLOWSHEET RESPONSES [[id number]][ 12/29/2009 Orientation NO Time 8:48 AM MD Orders 12/25/09 Start NBUVB @ 850mj increase 50mj each treatment to a maximum of 1000mj 3 times per week.Sunscreen on face per Dr. Leodan Fierro Ttl # of Treatments 59 DIAGNOSIS psoriasis Site #1 body Type NBUVB Prescr Dose 850 Actual Dose 857mj Predict Time 2:47mins Actual Time 2:00mins On Stool none New Meds no Sleep OK YES Psoralen Taken? n/a PUVA Med Nausea NA - NOT APPLICABLE Erythema Grade 0 Blisters NO Itching NO Pain 0 MD Notified NA - NO REACTION Goggles YES Oral/Topical Meds NO Suntan Lotion face Shield none Nurse JAY JAY Jameson Nurse #2 Comments PHOTOTHERAPY DOC FLOWSHEET RESPONSES [[id number]][ 12/25/2009 Orientation NO Time 1:31 PM MD Orders 11/23/09 Start NBUVB @ 400mj increase 100mj each treatment to a maximum of 800mj t hen increase by 50mj to a maximum of 1000mj. 3 times per week.Sunscreen on face per Dr. Mey boyce Ttl # of Treatments 58 DIAGNOSIS psoriasis Site #1 body Type NBUVB Prescr Dose 800mj Actual Dose 808mj Predict Time 2;37mins Actual Time 1:53mins On Stool none New Meds no Sleep OK YES Psoralen Taken? n/a PUVA Med Nausea NA - NOT APPLICABLE Erythema Grade 0 Blisters NO Itching NO Pain 0 MD Notified NA - NO REACTION Goggles YES Oral/Topical Meds NO Suntan Lotion face Shield none [facility] Comments documented in this enco unter Plan of Treatment Not on filedocumented as of this encounter Visit Diagnoses + + | Diagnosis | + + | Other psoriasis | + + documented in this encounter"
--- OUTSIDE RECORDS SUMMARY | ~2020-04-11 | XMS | Encounter Summary ---
Demographics + + + | Address | [address] | | | [place] [address] | + + + | Home Phone [...] + + + | Author | [facility] | + + + | Organization | [facility] | + + + | Address | Unknown | + + + | Phone | Unavailable | + + + Care Team Providers + +------+ + | Care Mechanical Door Repairer Name | Role | Phone | + [...] | +--------+ + + + + | 12/04/ | Procedure | Dermatology | Nadia De Luna, | Phototherapy (NBUVB) | | 2009 | | Phototherapy at [facility] | MD | | | | | [address] | | | | | | [facility] | | | | | | and [place], | | | | | | [facility] | | | | | | [place], [place] | | | | | | [address] | | | | | | [phone] | | | +--------+ + + + [...] this encounter Progress Notes Giselle Ro - 12/04/2009 8:13 AM PDTFormatting of this note might be different fro m the original. PHOTOTHERAPY DOC FLOWSHEET RESPONSES [[id number]][ 12/04/2009 Orientation NO Time 8:01 AM MD Orders 11/23/09 Start NBUVB @ 400mj increase 100mj each treatment to a maximum of 800mj t hen increase by 50mj to a maximum of 1000mj. 3 times per week.Sunscreen on face per Dr. Mey boyce Ttl # of Treatments 54 DIAGNOSIS psoriasis Site #1 body Type NBUVB Prescr Dose 500mj Actual Dose 507mj Predict Time 1:35min Actual Time 1:02mins On Stool none New Meds No Sleep OK YES Psoralen Taken? n/a PUVA Med Nausea NA - NOT APPLICABLE Erythema Grade 0 Blisters NO Itching NO Pain 0 MD Notified NA - NO REACTION Goggles YES Oral/Topical Meds NO Suntan Lotion face Shield none Nurse Keiko [facility] Nurse #2 Comments PHOTOTHERAPY DOC FLOWSHEET RESPONSES [2234][ 12/02/2009 Orientation NO Time 7:54 AM MD [...] NO Suntan Lotion face Shield none Nurse DScservando, DELINQUENT ACCOUNT CLERK Nurse #2 Comments First treatment since bulb change. Reduced 50% documented in this en counter Plan of Treatment Not on filedocumented as of this encounter Visit Diagnoses + + | Diagnosis | + + | Other psoriasis | + + documented in this encounter"
--- OUTSIDE RECORDS SUMMARY | ~2020-04-11 | XMS | Encounter Summary ---
Demographics + + + | Address | [address] | | | [place] [address] | + + + | Home Phone | | + + + | Preferred Language | Unknown | + + + | Marital Status | Single | + + + | Latter-Day Affiliation | UNK | + + + | Race | White | + + + | Ethnic Group | Not or | + + + Author + + + | Author | [facility] | + + + | Organization | [facility] | + + + | Address | Unknown | + + + | Phone | Unavailable | + + + Care Team Providers + +------+ + | Care Electronic Specialist Name | Role | Phone | + +------+ + | No Pcp Per Patient | PCP | Unavailable | + +------+ + Encounter Details +--------+ + + + + | Date | Type | Department | Care Team | Description | +--------+ + + + + | 06/04/ | Documentati | Dermatology | Jeyson Zaragoza, | | | 2007 | on | Medical at [facility] [address] | MD | | | | | [facility] | | | | | | [facility] and | | | | | | [facility] [address], | | | | | | [facility] | | | | | | [place], [place] | | | | | | [address] | | | | | | [phone] | | | +--------+ + + + [...] this encounter Miscellaneous Notes Telephone Encounter - Keri Yanes Cna - 06/04/2008 11:22 AM PSTPA sheet for Clobex sp ray faxed to Geovany Case A M PSTdocumented in this encounter Plan of Treatment Not on filedocumented as of this encounter Visit Diagnoses Not on filedocumented in this encounter"
--- OUTSIDE RECORDS SUMMARY | ~2020-04-11 | XMS | Encounter Summary ---
Demographics + + + | Address | [address] | | | [place] [address] | + + + | Home Phone | | + + + | Preferred Language | Unknown | + + + | Marital Status | Single | + + + | Sikh Affiliation | UNK | + + + [...] Team Providers + +------+ + | Care Sleeve Fixer Name | Role | Phone | + [...] Description | +--------+---------+ + + + | 10/05/ | Office | Dermatology | Jeyson Zaragoza, | Other psoriasis | | 2009 | Visit | Medical at [facility] [address] | MD | (Primary Dx) | | | | [facility] | | | | | | for Health and | | | | | | [facility] 1, | | | | | | 16th Floor | | | | | | [place], [place] | | | | | | [address] | | | | | | [phone] | | | +--------+---------+ + + + [...] + + + | Blood Pressure | 122/74 | 10/05/2009 8:19 AM | | | | | PDT | | + + + + + | Pulse | 68 | 10/05/2009 8:19 AM | | | | | PDT | | + + + + + | Temperature | - | - | | + + + + + | Respiratory Rate | 14 | 10/05/2009 8:19 AM | | | | | PDT | | + + + + + | Oxygen Saturation | - | - | | + + + + + | Inhaled Oxygen | - | - | | | Concentration | | | | + + + + + | Weight | 90.2 kg (198 lb 14.4 | 10/05/2009 8:19 AM | | | | oz) | PDT | | + + + + + | Height | - | - | | + + + + + | Body Mass Index | 27.16 | 06/02/2008 8:27 AM | | | | | PST | | + + + + + documented in this encounter Progress Notes Jeyson Zaragoza MD - 10/11/2009 9:56 AM PDTI have edited and agree with the resident's sherry fu. I examined the patient. I spent 17 total minutes with this patient, with greater than 50% of the time devoted to counseling and going over the treatment plan. Jeyson Zaragoza M.D. Professor, Department of Dermatology Research Director, [facility] P[facility] Tierra Seymour M D - 10/04/2009 2:30 PM PDTCenter Excellence for Psoriasis and Psoriatic Arthritis ([facility] ) FOLLOW-UP VISIT S: From previous visits: Walt Cerna is a 38 y.o. male with a history of psoriasi [...] has not been evaluated by Dr. Duggan. He received phototherapy with NBUVB BIW las year with good response and he was clear after he stopped in October of 2008 and was clear until March of 2009. The psoriasis recurred and he was seen by another management developer and started light treatment but he returns to us for mo re aggressive light therapy at higher doses to get better results. Enbrel was discussed in t he past but he had a fhx of MS and skin cancers and he was not very excited about starting t hat tx. O: - Wt 90.22 kg (198 lbs 14.4 oz)( < 3 %ile), BP 122/74, Pulse 68, RR 14. - a full skin examination was performed, including scalp, face, neck, bilateral upper and l ower extremities, abdomen, chest, back, buttocks, groin, genitalia, hands, and nails, and th e exam was only notable for the following: * scattered well-demarcated pink thin scaly plaques, 6% BSA, located on the knees and anter ior legs * 4/10 fingernails with nail pitting - no evidence of joint erythema, edema, or pain - the patient had a normal mood and affect, and was alert and oriented to person, place, an d time A/P: Severe psoriasis (now at 6% BSA from his baseline 10%) with great response with phototherap y in the past; has flared since phototherapy was discontinued in 2008 - will restart phototherapy, twice a week with increasing the dose - start at 300, increase by 50 mJ/cm2 with each tx to max of 1000 mJ/cm2 BIW, no genital sh ield, apply sunscreen to face - discussed sun safety and risk of skin cancer with prolonged sun exposure - methotrexate is another option for him if he likes to start oral tx. RTC: 6 months Tierra Chapa M.D., Ph.D. Dermatology Resident [facility] documented in this e ncounter Plan of Treatment Not on filedocumented as of this encounter Visit Diagnoses + + | Diagnosis | + + | Other psoriasis - Primary | + + documented in this encounter"
--- OUTSIDE RECORDS SUMMARY | ~2020-04-11 | XMS | Encounter Summary ---
Demographics + + + | Address | [address] | | | [place] [address] | + + + | Home Phone [...] + + + | Author | [facility] | + + + | Organization | [facility] | + + + | Address | Unknown | + + + | Phone | Unavailable | + + + Care Team Providers + +------+ + | Care Pocketed Spring Machine Operator Name | Role | Phone | + +------+ + | No Pcp Per Patient | PCP | Unavailable | + +------+ + Reason for Visit + +--------+ + | Reason | Onset | Comments | | | Date | | + +--------+ + | Phototherapy | 09/06/ | NBUVB | | | 2010 | | + +--------+ + Encounter Details +--------+ + + + + | Date | Type | Department | Care Team | Description | +--------+ + + + + | 09/06/ | Procedure | Dermatology | Ignacio Reed, | Phototherapy (NBUVB) | | 2010 | | Phototherapy at [facility] | MD [address] | | | | | [address] | [place], [place] | | | | | [facility] | [address] | | | | | and Healing, | [phone] | | | | | | | | | | | Floor [place], [place] | | | | | | [address] | | | | | | [phone] | | | +--------+ + + + [...] this encounter Progress Adeline Shultz MA - 09/06/2010 8:19 AM PSTPhototherapy Visit Record: Phototherapy Orientation: NO Time of Treatment: 808 Physician Orders: 09/03/10 start NBUVB @ 400mj increase 50mj each tx to a maximum of 1000mj. Sunscreen on face and pt stand on stool per Dr. Zaragoza Total # of Treatments: 61 DIAGNOSIS: psoriasis Treatment Site #1: body Phototherapy Type: NBUVB Prescr Dose(j or mj)_ _._ _ _: 450mj Actual Dose(j or mj)_ _._ _ _: 455mj Predicted Time (min:sec): 1:46min Actual Time (min:sec): 1:09min Dosage on stool: 455mj Additional Information: New meds since last visit: [...] + | PHOTOTHERAPY (UVA, | Routin | 09/06/2010 | Psoriasis | | | UVB, NBUVB) - BACK | e | | | | | OFFICE | | | | | + +--------+ + + + documented in this encounter Visit Diagnoses + + | Diagnosis | + + | Psoriasis Other psoriasis | + + documented in this encounter"
--- OUTSIDE RECORDS SUMMARY | ~2020-04-11 | XMS | Encounter Summary ---
Demographics + + + | Address | [address] | | | [place] [address] | + + + | Home Phone | | + + + | Preferred Language | Unknown | + + + | Marital Status | Single | + + + | Anabaptism Affiliation | UNK | + + + [...] Team Providers + +------+ + | Care Saw Repairer Name | Role | Phone | + +------+ + | No Pcp Per Patient | PCP | Unavailable | + +------+ + Encounter Details +--------+ + + + + | Date | Type | Department | Care Team | Description | +--------+ + + + + | 11/23/ | Street Light Servicer | Dermatology | Jeyson Zaragoza, | Other psoriasis | | 2009 | | Medical at [facility] [address] | MD | (Primary Dx) | | | | [address] [facility] | | | | | | for Health and | | | | | | Healing, [address], | | | | | | [address]th Floor | | | | | | [place], [place] | | | | | | [address] | | | | | | [phone] | | | +--------+ + + + [...]
--- OUTSIDE RECORDS SUMMARY | ~2020-04-11 | XMS | Encounter Summary ---
Demographics + + + | Address | [address] | | | [place] [address] | + + + | Home Phone | | + + + | Preferred Language | Unknown | + + + | Marital Status | Single | + + + | Holiness Affiliation | UNK | + + + [...] Team Providers + +------+ + | Care Sales Supervisor Name | Role | Phone | [...] | +--------+ + + + + | 07/10/ | Procedure | Dermatology | | Phototherapy (NBUVB) | | 2008 | | Phototherapy at [facility] | | | | | | [address] | | | | | | [facility] | | | | | | and Healing, | | | | | | Building | | | | | | Floor [place], [place] | | | | | | [address] | | | | | | [phone] | | | +--------+ + + + [...] encounter Progress Notes Krista Garcia Lpn - 07/10/2008 4:08 PM PST PHOTOTHERAPY DOC FLOWSHEET RESPONSES [[id number]][ 07/10/2008 Orientation NO Time 4:00 PM MD [...] face Shield none Nurse JAY JAY Jameson Comments PHOTOTHERAPY DOC FLOWSHEET RESPONSES [[id number]][ 07/07/2008 Orientation Time 4:04 PM MD Orders [...] none Nurse dds Comments documented in this enco unter Plan of Treatment Not on filedocumented as of this encounter Visit Diagnoses + + | Diagnosis | + + | Other psoriasis | + + documented in this encounter"
--- OUTSIDE RECORDS SUMMARY | ~2020-04-11 | XMS | Encounter Summary ---
Demographics + + + | Address | [address] | | | [place] [address] | + + + | Home Phone | | + + + | Preferred Language | Unknown | + + + | Marital Status | Single | + + + | Caodaism Affiliation | UNK | + + + [...] Team Providers + +------+ + | Care Agent Spa Desk Name | Role | Phone | + +------+ + | No Pcp Per Patient | PCP | Unavailable | + +------+ + Encounter Details +--------+ + + + + | Date | Type | Department | Care Team | Description | +--------+ + + + + | 09/04/ | DELETED | UNKNOWN DEPARTMENT | Unknown . | CONSENTS | | 2010 | TRANSCRIPTI | [address] [facility] | | | | | [place] | [facility] | | | | | | [place], [place] | | | | | | [address] | | | +--------+ + + + [...]
--- OUTSIDE RECORDS SUMMARY | ~2020-04-11 | XMS | Encounter Summary ---
Demographics + + + | Address | [address] | | | [place] [address] | + + + | Home Phone | | + + + | Preferred Language | Unknown | + + + | Marital Status | Single | + + + | Yazidi Affiliation | UNK | + + + [...] Team Providers + +------+ + | Care Telecom Assistant Name | Role | Phone | [...] | +--------+ + + + + | 08/28/ | Procedure | Dermatology | Ignacio Reed, | Phototherapy (NBUVB) | | 2008 | | Phototherapy at [facility] | MD [address] | | | | | [address] | [place], [place] | | | | | [facility] | [address] | | | | | and [place], | [phone] | | | | | [facility] | | | | | | [place], [place] | | | | | | [address] | | | | | | [phone] | | | +--------+ + + + [...] this encounter Progress Notes Brandin Lundberg - 08/28/2008 4:46 PM PST PHOTOTHERAPY DOC FLOWSHEET RESPONSES [4802][ 08/28/2008 Orientation NO Time 4:34 PM Orders 06/09/08 Start NBUVB @ 75mj [...] Nurse #2 Comments PHOTOTHERAPY DOC FLOWSHEET RESPONSES [3197][ 08/26/2008 Orientation NO Time 4:08 PM Orders 06/09/08 Start NBUVB @ 75mj increase 50mj each treatment to a maximum of 1000mj. Two times a week apply sunscreen to face per Dr. Zaragoza Ttl # of Treatments 19 DIAGNOSIS psoriasis Site #1 body Type NBUVB Prescr Dose 875mj Actual Dose 875mj Predict Time 3:08min Actual Time 2:09min On Stool none New Meds no Sleep [...]
--- OUTSIDE RECORDS SUMMARY | ~2020-04-11 | XMS | Encounter Summary ---
Demographics + + + | Address | [address] | | | [place] [address] | + + + | Home Phone [...] Team Providers + +------+ + | Care Signal Engineer Name | Role | Phone | + +------+ + | No Pcp Per Patient | PCP | Unavailable | + +------+ + Reason for Visit + +--------+ + | Reason | Onset | Comments | | | Date | | + +--------+ + | Refill Request | 10/20/ | | | | 2009 | | + +--------+ + Encounter Details +--------+--------+ + + + | Date | Type | Department | Care Team | Description | +--------+--------+ + + + | 10/20/ | Refill | Dermatology | Jeyson Zaragoza, | Refill Request | | 2009 | | Medical at [facility] [address] | | | | | | [address] [facility] | | | | | | for Health and | | | | | | Healing, [address], | | | | | | 16th Floor | | | | | | [place], [place] | | | | | | [address] | | | | | | [phone] | | | +--------+--------+ + + + [...] this encounter Miscellaneous Notes Telephone Encounter - Tierra Chapa MD - 10/20/2009 4:58 PM PDTReviewed chart and ref illed medication. e lephoeloy Encounter - Tamica Baez - 10/20/2009 1:53 PM PDTRx request recv'd via fax Drug: clobex 0.05% spray Qty: 125 Sig: Apply to the affected area twice daily, rub in gently LF: 06/18/09 *Pt pharmacy has been verified documented in this encounte r Plan of Treatment Not on filedocumented as of this encounter Visit Diagnoses Not on filedocumented in this encounter"
--- OUTSIDE RECORDS SUMMARY | ~2020-04-11 | XMS | Encounter Summary ---
Demographics + + + | Address | [address] | | | [place] [address] | + + + | Home Phone | | + + + | Preferred Language | Unknown | + + + | Marital Status | Single | + + + | Roman Catholic Affiliation | UNK | + + [...] Team Providers + +------+ + | Care Business Operations Manager Name | Role | Phone | + +------+ + | No Pcp Per Patient | PCP | Unavailable | + +------+ + Reason for Visit + + + | Reason | Comments | + + + | Examination Of Skin | follow up for psoriasis. | + + + Encounter Details +--------+---------+ + + + | Date | Type | Department | Care Team | Description | +--------+---------+ + + + | 09/03/ | Office | Dermatology | Jeyson Zaragoza, | Other psoriasis | | 2010 | Visit | Medical at [facility] [address] | MD | (Primary Dx) | | | | [address] [facility] | | | | | | for Health and | | | | | | Healing, [address], | | | | | | 16th Floor | | | | | | [place], [place] | | | | | | [address] | | | | | | [phone] | | | +--------+---------+ + + + [...] encounter Progress Notes Jeyson Zaragoza MD - 09/09/2010 9:12 PM PSTI saw and evaluated the patient. I agree with the findings and plan of care as documented in the resident's note. I spent 16 total minute s with this patient, with greater than 50% of the time devoted to counseling and going over the treatment plan. Jeyson Zaragoza M.D. Professor, Department of Dermatology Director, [facility] riAntonio tinoco MD - 09/03/2010 12:12 PM [facility] ([facility]) FOLLOW-UP VISIT S: From previous visits: Walt Cerna is a 40 y.o. male with a history of psoriasi [...] on NBUVB BIW with max dose of 1000 mj. He then had BIW treatments unt summer when he cleared. He then restarted in October 2009 until December 2009 (18 treatments) and cleared again. 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 He has not been evaluated by Dr. Duggan. Today: Walt is here today as his psoriasis started flaring a few months ago. He is flari ng on legs, with a few spots on his arms. He was using Clobex spray, but stopped a few weeks ago. He doesn't know if it helped and it was extremely expensive. Since 2007, he has done 2 runs of phototherapy with excellent response. He last received phototherapy with NBUVB BIW in December 2009 and was clear throughout the summer. Unfortunately, he lost insurance when he g ot a divorce and now is paying out of pocket. He would like to resume phototherapy. No new medical problems or medications. Currently doesn't have insurance. Paying out of poc ket for phototherapy. Owns own company as a contractor. Otherwise pt feels healthy at baseline state of health. No other skin complaints. No new me dical problems, infections, or change in medications. O: - Ht 175 cm (5' 8.9")( < 3 %ile), Wt 84.868 kg (187 lbs 1.6 oz)( < 3 %ile), BP 128/84, Puls e 82, RR 18, BMI 27.71 kg/(m^2). - a full skin examination was performed, including scalp, face, neck, bilateral upper and l ower extremities, abdomen, chest, back, buttocks, groin, genitalia, hands, and nails, and th e exam was only notable for the following: * 3% BSA with well demarcated scaly plaques on shins and knees, with a few smaller quarters sized plaques on arms * numerous skin colored to pink flat-topped and verrucous papules at base of penis and some on proximal penile shaft - no evidence of joint erythema, edema, or pain - the patient had a normal mood and affect, and was alert and oriented to person, place, an d time A/P: 1) Severe psoriasis in past (10% at baseline, cleared to 0% with phototherapy, now 3% BSA) with great response to phototherapy in the past - discussed treatment options - not a good candidate at this time for biologics: low BSA and father with MS - states he does not clear with Clobex spay BID x 4 weeks - discussed localized treatment options including Cordran tape, injections, Excimer laser - he really loved light therapy because it worked, and it willing to pay $52 per session (w hat he was quoted) - start phototherapy at 400 mJ/cm2, incr by 50 mJ/cm2 each session to max 1000 mJ/cm2 -sunscreen face, stand on stool RTC: 6 months ANTONIO LLAMAS MD MEDICAL DERMATOLOGY [facility] Mail Code: Ch16d [facility], [address] [address] documented in this e ncounter Plan of Treatment Not on filedocumented as of this encounter Visit Diagnoses + + | Diagnosis | + + | Other psoriasis - Primary | + + documented in this encounter
--- OUTSIDE RECORDS SUMMARY | ~2020-04-11 | XMS | Encounter Summary ---
Demographics + + + | Address | [address] | | | [place] [address] | + + + | Home Phone [...] Author + + + | Author | [facility] | + + + | Organization | [facility] | + + + | Address | Unknown | + + + | Phone | Unavailable | + + + Care Team Providers + +------+ + | Care Punch Finisher Name | Role | Phone | + [...] | +--------+ + + + + | 10/27/ | Procedure | Dermatology | Nadia De Luna, | Phototherapy (NBUVB) | | 2008 | | Phototherapy at [facility] | MD | | | | | [address] | | | | | | [facility] | | | | | | and [place], | | | | | | [facility] | | | | | | [place], [place] | | | | | | [address] | | | | | | [phone] | | | +--------+ + + + [...] encounter Progress Notes Krista Garcia Lpn - 10/27/2008 4:33 PM PDT PHOTOTHERAPY DOC FLOWSHEET RESPONSES [[id number]][ 10/27/2008 Orientation NO Time 4:20 PM MD [...] Nurse #2 Comments PHOTOTHERAPY DOC FLOWSHEET RESPONSES [8643][ 10/23/2008 Orientation NO Time 3:47 PM MD [...] md Nurse #2 Comments documented in this enco unter Plan of Treatment Not on filedocumented as of this encounter Visit Diagnoses + + | Diagnosis | + + | Other psoriasis | + + documented in this encounter"
--- OUTSIDE RECORDS SUMMARY | ~2020-04-11 | XMS | Encounter Summary ---
Demographics + + + | Address | [address] | | | [place] [address] | + + + | Home Phone | | + + + | Preferred Language | Unknown | + + + | Marital Status | Single | + + + | Jainism Affiliation | UNK | + + + | Race | White | + + + | Ethnic Group | Not or | + + + Author + + + | Author | [facility] | + + + | Organization | [facility] | + + + | Address | Unknown | + + + | Phone | Unavailable | + + + Care Team Providers + +------+ + | Care Surgical Aides Teacher Name | Role | Phone | + +------+ + | No Pcp Per Patient | PCP | Unavailable | + +------+ + Reason for Visit + +--------+ + | Reason | Onset | Comments | | | Date | | + +--------+ + | Phototherapy | 09/10/ | NBUVB | | | 2010 | | + +--------+ + Encounter Details +--------+ + + + + | Date | Type | Department | Care Team | Description | +--------+ + + + + | 09/10/ | Procedure | Dermatology | | Phototherapy (NBUVB) | | 2010 | | Phototherapy at [facility] | | | | | | [address] | | | | | | [place] [facility] | | | | | | and Healing, | | | | | | [facility] | | | | | | Floor [place], [place] | | | | | | [address] | | | | | | [phone] | | | +--------+ + + + [...] encounter Progress Notes Adeline Pacheco MA - 09/10/2010 8:05 AM PSTPhototherapy Visit Record: Phototherapy Orientation: NO Time of Treatment: 0755 Physician Orders: 09/03/10 start NBUVB @ 400mj increase 50mj each tx to a maximum of 1000mj. Sunscreen on face and pt stand on stool per Dr. Zaragoza Total # of Treatments: 63 DIAGNOSIS: psoriasis Treatment Site #1: body Phototherapy Type: NBUVB Prescr Dose(j or mj)_ _._ _ _: 550mj Actual Dose(j or mj)_ _._ _ _: 557mj Predicted Time (min:sec): 2:09min Actual Time (min:sec): 1:20min Dosage on stool: 557mj Additional Information: New meds since last visit: [...] + | PHOTOTHERAPY (UVA, | Routin | 09/10/2010 | Psoriasis | | | UVB, NBUVB) - BACK | e | | | | | OFFICE | | | | | + +--------+ + + + documented in this encounter Visit Diagnoses + + | Diagnosis | + + | Psoriasis Other psoriasis | + + documented in this encounter"
--- OUTSIDE RECORDS SUMMARY | ~2020-04-11 | XMS | Encounter Summary ---
Demographics + + + | Address | [address] | | | [place] [address] | + + + | Home Phone [...] Author + + + | Author | [facility] | + + + | Organization | [facility] | + + + | Address | Unknown | + + + | Phone | Unavailable | + + + Care Team Providers + +------+ + | Care Gift Basket Packer Name | Role | Phone | + [...] | +--------+ + + + + | 08/08/ | Procedure | Dermatology | Nadia De Luna, | Phototherapy (NBUVB) | | 2008 | | Phototherapy at [facility] | MD | | | | | [address] | | | | | | [facility] | | | | | | and [place], | | | | | | [facility] | | | | | | [place], [place] | | | | | | [address] | | | | | | [phone] | | | +--------+ + + + [...] this encounter Progress Notes Giselle Ro - 08/08/2008 4:28 PM PSTFormatting of this note might be different fro m the original. PHOTOTHERAPY DOC FLOWSHEET RESPONSES [4035][ 08/08/2008 Orientation NO Time 3:55 PM MD [...] #2 Keiko Comments PHOTOTHERAPY DOC FLOWSHEET RESPONSES [6596][ 08/05/2008 Orientation NO Time 3:43 PM MD [...] Lotion face Shield none Nurse Nurse #2 JRmarck Comments documented in this en counter Plan of Treatment Not on filedocumented as of this encounter Visit Diagnoses + + | Diagnosis | + + | Other psoriasis | + + documented in this encounter"
--- OUTSIDE RECORDS SUMMARY | ~2020-04-11 | XMS | Encounter Summary ---
Demographics + + + | Address | [address] | | | [place] [address] | + + + | Home Phone | | + + + | Preferred Language | Unknown | + + + | Marital Status | Single | + + + | Rastafarian Affiliation | UNK | + + + [...] Team Providers + +------+ + | Care Goldbeater Name | Role | Phone | + +------+ + | No Pcp Per Patient | PCP | Unavailable | + +------+ + Encounter Details +--------+ + + + + | Date | Type | Department | Care Team | Description | +--------+ + + + + | 06/17/ | Procedure | Dermatology | | | | 2007 | | Phototherapy at [facility] | | | | | | [address] | | | | | | [facility] | | | | | | and Healing, | | | | | | Building | | | | | | Floor [place], [place] | | | | | | [address] | | | | | | [phone] | | | +--------+ + + + [...] encounter Progress Notes Farzana Gilman, Keri - 06/17/2008 4:06 PM PSTFormatting of this note might be different f rom the original. PHOTOTHERAPY DOC FLOWSHEET RESPONSES [9063][ 06/17/2008 Orientation Time 3:53 PM MD Orders [...] none Nurse dds PHOTOTHERAPY DOC FLOWSHEET RESPONSES [2964][ 06/12/2008 Orientation YES Time 1:56 PM MD Orders 06/09/08 Start NBUVB @ 75mj increase 50mj each treatment to a maximum of 1000mj. Two times a week apply sunscreen to face per Dr. Zaragoza Ttl # of Treatments 1 DIAGNOSIS Psoriasis Site #1 Body Type NBUVB Prescr Dose 75mj Actual Dose 79mj Predict Time 0:14sec Actual Time 0:12sec On Stool none New Meds Sleep OK Psoralen Taken? NA PUVA Med Nausea NA - NOT APPLICABLE Erythema Grade Blisters Itching Pain MD Notified NA - NO REACTION Goggles YES Oral/Topical Meds NO [place] Lotion face Shield none Nurse JRamirezCMA documented in this encounter Plan of Treatment Not on filedocumented as of this encounter Visit Diagnoses + + | Diagnosis | + + | Other psoriasis | + + documented in this encounter"
--- OUTSIDE RECORDS SUMMARY | ~2020-04-11 | XMS | Encounter Summary ---
Demographics + + + | Address | [address] | | | [place] [address] | + + + | Home Phone [...] Team Providers + +------+ + | Care Workforce Development Assistant Name | Role | Phone | + +------+ + | No Pcp Per Patient | PCP | Unavailable | + +------+ + Reason for Visit + +--------+ + | Reason | Onset | Comments | | | Date | | + +--------+ + | Phototherapy | 09/15/ | NBUVB | | | 2010 | | + +--------+ + Encounter Details +--------+ + + + + | Date | Type | Department | Care Team | Description | +--------+ + + + + | 09/15/ | Procedure | Dermatology | Ignacio Reed, | Phototherapy (NBUVB) | | 2010 | | Phototherapy at [facility] | MD [address] | | | | | [address] | [place], [place] | | | | | [facility] | [address] | | | | | and Healing, | [phone] | | | | | | | | | | | Floor [place], [place] | | | | | | [address] | | | | | | [phone] | | | +--------+ + + + [...] + documented as of this encounter Progress Raul Root LPN - 09/15/2010 8:51 AM PDTPhototherapy Visit Record: Phototherapy Orientation: NO Time of Treatment: 0750 Physician Orders: 09/03/10 start NBUVB @ 400mj increase 50mj each tx to a maximum of 1000mj. Sunscreen on face and pt stand on stool per Dr. Zaragoza Total # of Treatments: 65 DIAGNOSIS: psoriasis Treatment Site #1: body Phototherapy Type: NBUVB Prescr Dose(j or mj)_ _._ _ _: 650mj Actual Dose(j or mj)_ _._ _ _: 656mj Predicted Time (min:sec): 2:38MIN Actual Time (min:sec): 1:37min Dosage on stool: 656mj Additional Information: New meds since last visit: [...] face Shield placed over sites: none Nurse: JAY JAY Patel documented in thi s encounter Plan of Treatment Not on filedocumented as of this encounter Visit Diagnoses + + | Diagnosis | + + | Psoriasis Other psoriasis | + + documented in this encounter"
--- OUTSIDE RECORDS SUMMARY | ~2020-04-11 | XMS | Encounter Summary ---
Demographics + + + | Address | [address] | | | [place] [address] | + + + | Home Phone | | + + + | Preferred Language | Unknown | + + + | Marital Status | Single | + + + | Pentecostal Affiliation | UNK | + + + [...] Team Providers + +------+ + | Care Lsat Instructor Name | Role | Phone | + +------+ + | No Pcp Per Patient | PCP | Unavailable | + +------+ + Encounter Details +--------+------+ + + + | Date | Type | Department | Care Team | Description | +--------+------+ + + + | 06/02/ | Lab | Laboratory at [facility] | | Encounter for | | 2007 | | [address] | | Long-Term (Current) | | | | [facility] | | Use of Other | | | | and Healing, | | Medications | | | | [address] | | | | | | [place], [place] | | | | | | [address] | | | | | | [phone] | | | +--------+------+ + + + Social History + +-------+ [...] | + +--------+ + + + | DIFFERENTIAL | Routin | 06/02/2008 | | Results for this | | | e | 9:53 AM | | procedure are in the | | | | PST | | results section. | + +--------+ + + + | CBC, WITH | Routin | 06/02/2008 | Encounter for | Results for this | | DIFFERENTIAL | e | 9:53 AM | Long-Term (Current) | procedure are in the | | | | PST | Use of Other | results section. | | | | | Medications | | + +--------+ + + + | COMPLETE METABOLIC | Routin | 06/02/2008 | Encounter for | Results for this | | SET | e | 9:53 AM | Long-Term (Current) | procedure are in the | | (NA,K,CL,CO2,BUN,CRE | | PST | Use of Other | results section. | | AT,GLUC,CA,AST,ALT,B | | | Medications | | | TERENCE TOTAL,ALK | | | | | | PHOS,ALB,PROT TOTAL) | | | | | + +--------+ + + + | HEPATITIS B SURFACE | Routin | 06/02/2008 | Encounter for | Results for this | | AB QUAL, SERUM | e | 9:53 AM | Long-Term (Current) | procedure are in the | | | | PST | Use of Other | results section. | | | | | Medications | | + +--------+ + + + | HEPATITIS B SURFACE | Routin | 06/02/2008 | Encounter for | Results for this | | AG, SERUM | e | 9:53 AM | Long-Term (Current) | procedure are in the | | | | PST | Use of Other | results section. | | | | | Medications | | + +--------+ + + + | HEPATITIS B CORE AB, | Routin | 06/02/2008 | Encounter for | Results for this | | SERUM | e | 9:53 AM | Long-Term (Current) | procedure are in the | | | | PST | Use of Other | results section. | | | | | Medications | | + +--------+ + + + | HEPATITIS A AB | Routin | 06/02/2008 | Encounter for | Results for this | | SCREEN, SERUM | e | 9:53 AM | Long-Term (Current) | procedure are in the | | | | PST | Use of Other | results section. | | | | | Medications | | + +--------+ + + + | HEPATITIS C VIRUS | Routin | 06/02/2008 | Encounter for | Results for this | | W/CONFIRMATION | e | 9:53 AM | Long-Term (Current) | procedure are in the | | | | PST | Use of Other | results section. | | | | | Medications | | + +--------+ + + + documented in this encounter Results DIFFERENTIAL (06/02/2008 9:53 AM PST) + +--------+ + + + | Component | Value | Ref Range | Performed | Pathologist | | | | | At | Signature | + +--------+ + + + | NEUTROPHIL | 63 | 50 - 70 % | [facility] | | | % | | | DEPARTMENT | | | | | | OF | | | | | | PATHOLOGY | | + +--------+ + + + | LYMPHOCYTE | 23 | 18 - 42 % | [facility] | | | % | | | DEPARTMENT | | | | | | OF | | | | | | PATHOLOGY | | + +--------+ + + + | MONOCYTE % | 11 (H) | 2 - 8 % | [facility] | | | | | | DEPARTMENT | | | | | | OF | | | | | | PATHOLOGY | | + +--------+ + + + | EOS % | 3 | 1 - 3 % | [facility] | | | | | | DEPARTMENT | | | | | | OF | | | | | | PATHOLOGY | | + +--------+ + + + | BASO % | 0 | <3 % | [facility] | | | | | | DEPARTMENT | | | | | | OF | | | | | | PATHOLOGY | | + +--------+ + + + | NEUTROPHIL | 4.2 | 1.8 - 7.7 K/cu | [facility] | | | # | | mm | DEPARTMENT | | | | | | OF | | | | | | PATHOLOGY | | + +--------+ + + + | LYMPHOCYTE | 1.5 | 1.0 - 4.8 K/cu | [facility] | | | # | | mm | DEPARTMENT | | | | | | OF | | | | | | PATHOLOGY | | + +--------+ + + + | MONOCYTE # | 0.7 | <0.9 K/cu mm | [facility] | | | | | | DEPARTMENT | | | | | | OF | | | | | | PATHOLOGY | | + +--------+ + + + | EOS # | 0.2 | <0.6 K/cu mm | [facility] | | | | | | DEPARTMENT | | | | | | OF | | | | | | PATHOLOGY | | + +--------+ + + + | BASO # | 0.0 | <0.2 | [facility] | | | | | | DEPARTMENT | | | | | | OF | | | | | | PATHOLOGY | | + +--------+ + + + + + | Specimen | + + | | + + + + + + + | Performing | Address | City/State/Zipcode | Phone Number | | Organization | | | | + + + + + | [facility] | [address] | [place] [address] | | | PATHOLOGY | [address] | | | + + + + + | [facility] | [address] | [place] [address] | | | PATHOLOGY | [address] [...] | | AB | Test performed by Daniel | | | | | | [facility] | | | | | | Laboratories. | | | | + + + + + + + + | Specimen | + + | Blood - Blood | + + + + + + + | Performing | Address | City/State/Zipcode | Phone Number | | Organization | | | | + + + + + | [facility] | [address] | [place] [address] | | | LABORATORY | | | [...] | | | | QUAL, SERUM | [facility] | | | | | | Laboratories. | | | | + + + + + + + + | Specimen | + + | Blood - Blood | + + + + + + + | Performing | Address | City/State/Zipcode | Phone Number | | Organization | | | | + + + + + | [facility] | [address] | [place] [address] | | | LABORATORY | | | [...] | | SURFACE | Test performed by [facility] | | | | | AG, SERUM | [facility] | | | | | | Laboratories. | | | | + + + + + + + + | Specimen | + + | Blood - Blood | + + + + + | Narrative | Performed At | + + + | [facility] [facility] | | | [place] [place] [address] | | | [place] [address] | | + + + + + + + + | Performing | Address | City/State/Zipcode | Phone Number | | Organization | | | | + + + + + | [facility] | [address] | [place] [address] | | | LABORATORY | | | [...] | CORE AB, | Test performed by [facility] | | | | | SERUM | [facility] | | | | | | Laboratories. | | | | + + + + + + + + | Specimen | + + | Blood - Blood | + + + + + | Narrative | Performed At | + + + | [facility] ([facility]) [facility] | | | [place] [address] | | | [place] [address] | | + + + + + + + + | Performing | Address | City/State/Zipcode | Phone Number | | Organization | | | | + + + + + | [facility] | [address] | [place] [address] | | | LABORATORY | | | [...] | AB TOTAL | Test performed by [facility] | | | | | | [facility] | | | | | | [...] + + + | [facility] | [address] | [place] [address] | | | LABORATORY | | | [...] Performed At | + + + | [id number] Estimated GFR > 60 mL/min/1.73 sq m if non- | [facility] | | [place] [id number] Estimated GFR > 60 mL/min/1.73 sq m if | DEPARTMENT OF | | [place] GFR is estimated using the MDRD equation [...] | + + + + + | [facility] | [address] | [place] [address] | | | PATHOLOGY | [address] | | | + + + + + | [facility] | [address] | [place] [address] | | | PATHOLOGY | [address] [...] | + + + + + | [facility]PART[facility] | [address] | [place] [address] | | | PATHOLOGY | [address] | | | + + + + + | [facility] | [address] | [place] [address] | | | PATHOLOGY | [address] | | | + + + + + documented in this encounter Visit Diagnoses + + | Diagnosis | + + | Encounter for long-term (current) use of other medications | + + documented in this encounter"
--- OUTSIDE RECORDS SUMMARY | ~2020-04-11 | XMS | Encounter Summary ---
Demographics + + + | Address | [address] | | | [place] [address] | + + + | Home Phone | | + + + | Preferred Language | Unknown | + + + | Marital Status | Single | + + + | Confucianism Affiliation | UNK | + + + | Race | White | + + + | Ethnic Group | Not or | + + + Author + + + | Author | [facility] | + + + | Organization | [facility] | + + + | Address | Unknown | + + + | Phone | Unavailable | + + + Care Team Providers + +------+ + | Care Metal Furniture Polisher Name | Role | Phone | + +------+ + | No Pcp Per Patient | PCP | Unavailable | + +------+ + Reason for Visit + +--------+ + | Reason | Onset | Comments | | | Date | | + +--------+ + | Phototherapy | 10/06/ | NBUVB | | | 2010 | | + +--------+ + Encounter Details +--------+ + + + + | Date | Type | Department | Care Team | Description | +--------+ + + + + | 10/06/ | Procedure | Dermatology | Ignacio Reed, | Phototherapy (NBUVB) | | 2010 | | Phototherapy at [facility] | MD [address] | | | | | [address] | [place], [place] | | | | | [facility] | [address] | | | | | and Healing, | [phone] | | | | | | | | | | | Floor [place], [place] | | | | | | [address] | | | | | | [phone] | | | +--------+ + + + [...] of this encounter Progress Giselle Medley - 10/06/2010 8:20 AM PDTPhototherapy Visit Record: Phototherapy Orientation: NO Time of Treatment: 805 Physician Orders: 09/03/10 start NBUVB @ 400mj increase 50mj each tx to a maximum of 1000mj. Sunscreen on face and pt stand on stool per Dr. Zaragoza Total # of Treatments: 71 DIAGNOSIS: psoriasis Treatment Site #1: body Phototherapy Type: NBUVB Prescr Dose(j or mj)_ _._ _ _: 950mj Actual Dose(j or mj)_ _._ _ _: 953mj Predicted Time (min:sec): 3:43min Actual Time (min:sec): 2:17min Dosage on stool: 953mj Additional Information: New meds since last visit: [...] + | PHOTOTHERAPY (UVA, | Routin | 10/06/2010 | Psoriasis | | | UVB, NBUVB) - BACK | e | | | | | OFFICE | | | | | + +--------+ + + + documented in this encounter Visit Diagnoses + + | Diagnosis | + + | Psoriasis Other psoriasis | + + documented in this encounter"
--- OUTSIDE RECORDS SUMMARY | ~2020-04-11 | XMS | Encounter Summary ---
Demographics + + + | Address | [address] | | | [place] [address] | + + + | Home Phone | | + + + | Preferred Language | Unknown | + + + | Marital Status | Single | + + + | Cheondoism Affiliation | UNK | + + + | Race | White | + + + | Ethnic Group | Not or | + + + Author + + + | Author | [facility] | + + + | Organization | [facility] | + + + | Address | Unknown | + + + | Phone | Unavailable | + + + Care Team Providers + +------+ + | Care Intermission Coordinator Name | Role | Phone | [...] + + + + | 11/23/ | Procedure | Dermatology | Nadia De Luna, | Phototherapy (NBUVB) | | 2009 | | Phototherapy at [facility] | MD | | | | | [address] | | | | | | [facility] | | | | | | and [place], | | | | | | [facility] | | | | | | [place], [place] | | | | | | [address] | | | | | | [phone] | | | +--------+ + + + [...] encounter Progress Notes Krista Garcia Lpn - 11/23/2009 8:06 AM PDT PHOTOTHERAPY DOC FLOWSHEET RESPONSES [1121][ 11/23/2009 Orientation NO Time 8:04 AM MD [...] Nurse #2 Comments PHOTOTHERAPY DOC FLOWSHEET RESPONSES [[id number]][ 11/20/2009 Orientation NO Time 3:43 PM MD [...] NO Suntan Lotion face Shield none Nurse [facility] Nurse #2 Comments Patient on amoxicillin documented in this enco unter Plan of Treatment Not on filedocumented as of this encounter Visit Diagnoses + + | Diagnosis | + + | Other psoriasis | + + documented in this encounter"
--- OUTSIDE RECORDS SUMMARY | ~2020-04-11 | XMS | Encounter Summary ---
Demographics + + + | Address | [address] | | | [place] [address] | + + + | Home Phone [...] Team Providers + +------+ + | Care Bull Driver Name | Role | Phone | + [...] | 11/06/ | Procedure | Dermatology | Nadia De Luna, | Phototherapy (NBUVB) | | 2009 | | Phototherapy at [facility] | MD | | | | | [address] | | | | | | [facility] | | | | | | and [place], | | | | | | [facility] | | | | | | [place], [place] | | | | | | [address] | | | | | | [phone] | | | +--------+ + + + [...] encounter Progress Notes Krista Garcia Lpn - 11/06/2009 8:05 AM PDT PHOTOTHERAPY DOC FLOWSHEET RESPONSES [[id number]][ 11/06/2009 Orientation NO Time 7:54 AM MD [...] Nurse #2 Comments PHOTOTHERAPY DOC FLOWSHEET RESPONSES [[id number]][ 11/04/2009 Orientation NO Time 8:12 AM MD [...] Suntan Lotion face Shield none Nurse Keiko [facility] Nurse #2 Comments documented in this enco unter Plan of Treatment Not on filedocumented as of this encounter Visit Diagnoses + + | Diagnosis | + + | Other psoriasis | + + documented in this encounter"
--- OUTSIDE RECORDS SUMMARY | ~2020-04-11 | XMS | Encounter Summary ---
Demographics + + + | Address | [address] | | | [place] [address] | + + + | Home Phone [...] Team Providers + +------+ + | Care Recreational Leader Name | Role | Phone | + +------+ + | No Pcp Per Patient | PCP | Unavailable | + +------+ + Encounter Details +--------+ + + + + | Date | Type | Department | Care Team | Description | +--------+ + + + + | 08/15/ | Procedure | Dermatology | Nadia De Luna, | | | 2008 | | Phototherapy at [facility] | MD | | | | | [address] | | | | | | [facility] | | | | | | and [place]q, | | | | | | Building | | | | | | Floor [place], [place] | | | | | | [address] | | | | | | [phone] | | | +--------+ + + + [...] documented as of this encounter Progress Notes Keri Yanes Cna - 08/15/2008 4:10 PM PSTFormatting of this note might be different f rom the original. PHOTOTHERAPY DOC FLOWSHEET RESPONSES [[id number]][ 08/15/2008 Orientation Time 4:05 PM MD Orders [...] Shield none Nurse dds Nurse #2 Comments PHOTOTHERAPY DOC FLOWSHEET RESPONSES [3109][ 08/11/2008 Orientation NO Time 9:07 AM MD [...] Lotion face Shield none Nurse Keiko RUSSELL Nurse #2 Comments documented in this encounter Plan of Treatment Not on filedocumented as of this encounter Visit Diagnoses + + | Diagnosis | + + | Other psoriasis | + + documented in this encounter"
--- OUTSIDE RECORDS SUMMARY | ~2020-04-11 | XMS | Encounter Summary ---
Demographics + + + | Address | [address] | | | [place] [address] | + + + | Home Phone | | + + + | Preferred Language | Unknown | + + + | Marital Status | Single | + + + | Restorationism Affiliation | UNK | + + + [...] Team Providers + +------+ + | Care Terminal Makeup Operator Name | Role | Phone | [...] | +--------+ + + + + | 11/13/ | Procedure | Dermatology | Ignacio Reed, | Phototherapy (NBUVB) | | 2008 | | Phototherapy at [facility] | MD [address] | | | | | [address] | [place], [place] | | | | | [facility] | [address] | | | | | and [place], | [phone] | | | | | | | | | | | [place], [place] | | | | | | [address] | | | | | | [phone] | | | +--------+ + + + [...] this encounter Progress Notes Brandin Lundberg - 11/13/2008 4:13 PM PDT PHOTOTHERAPY DOC FLOWSHEET RESPONSES [[id number]][ 11/13/2008 Orientation NO Time 3:53 PM Orders [id number] Start NBUVB @ 1000mj & increase by 25mj each treatment to a maximum of 140 0mj. Cover genitials & sunscreen to face two times a week per Dr. [place] Zaragzoa Ttl # of Treatments 39 DIAGNOSIS psoriasis [...] Nurse #2 Comments PHOTOTHERAPY DOC FLOWSHEET RESPONSES [[id number]][ 11/10/2008 Orientation NO Time 3:53 PM Orders [id number] Start NBUVB @ 1000mj & increase by 25mj each treatment to a maximum of 140 0mj. Cover genitials & sunscreen to face two times a week per Dr. [place] Zaragoza Ttl # of Treatments 38 DIAGNOSIS psoriasis Site #1 body Type NBUVB Prescr Dose 1050mj Actual Dose 1053mj Predict Time 4:27mins Actual Time 2:36mins On Stool none New Meds no Sleep [...]
--- OUTSIDE RECORDS SUMMARY | ~2020-04-11 | XMS | Encounter Summary ---
Demographics + + + | Address | [address] | | | [place] [address] | + + + | Home Phone [...] Team Providers + +------+ + | Care Control Tower Radio Operator Name | Role | Phone | + +------+ + | No Pcp Per Patient | PCP | Unavailable | + +------+ + Reason for Visit + +--------+ + | Reason | Onset | Comments | | | Date | | + +--------+ + | Phototherapy | 09/13/ | NBUVB | | | 2010 | | + +--------+ + Encounter Details +--------+ + + + + | Date | Type | Department | Care Team | Description | +--------+ + + + + | 09/13/ | Procedure | Dermatology | | Phototherapy (NBUVB) | | 2010 | | Phototherapy at [facility] | | | | | | [address] | | | | | | [facility] | | | | | | and Healing, | | | | | | [facility] | | | | | | Floor [place], [place] | | | | | | [address] | | | | | | [phone] | | | +--------+ + + + [...] encounter Progress Notes Adeline Pacheco MA - 09/13/2010 8:24 AM PDTPhototherapy Visit Record: Phototherapy Orientation: NO Time of Treatment: 0804 Physician Orders: 09/03/10 start NBUVB @ 400mj increase 50mj each tx to a maximum of 1000mj. Sunscreen on face and pt stand on stool per Dr. Zaragoza Total # of Treatments: 64 DIAGNOSIS: psoriasis Treatment Site #1: body Phototherapy Type: NBUVB Prescr Dose(j or mj)_ _._ _ _: 600mj Actual Dose(j or mj)_ _._ _ _: 604mj Predicted Time (min:sec): 2:21min Actual Time (min:sec): 1:29min Dosage on stool: 604mj Additional Information: New meds since last visit: [...] + | PHOTOTHERAPY (UVA, | Routin | 09/13/2010 | Psoriasis | | | UVB, NBUVB) - BACK | e | | | | | OFFICE | | | | | + +--------+ + + + documented in this encounter Visit Diagnoses + + | Diagnosis | + + | Psoriasis Other psoriasis | + + documented in this encounter"
--- OUTSIDE RECORDS SUMMARY | ~2020-04-11 | XMS | Encounter Summary ---
Demographics + + + | Address | [address] | | | [place] [address] | + + + | Home Phone | | + + + | Preferred Language | Unknown | + + + | Marital Status | Single | + + + | Baptism Affiliation | UNK | + + + | Race | White | + + + | Ethnic Group | Not or | + + + Author + + + | Author | [facility] | + + + | Organization | [facility] | + + + | Address | Unknown | + + + | Phone | Unavailable | + + + Care Team Providers + +------+ + | Care Worm Grower Name | Role | Phone | + [...] | +--------+ + + + + | 07/22/ | Procedure | Dermatology | | Phototherapy (NBUVB) | | 2008 | | Phototherapy at [facility] | | | | | | [address] | | | | | | [facility] | | | | | | and Healing, | | | | | | Building | | | | | | Floor [place], [place] | | | | | | [address] | | | | | | [phone] | | | +--------+ + + + [...] encounter Progress Notes Krista Garcia Lpn - 07/22/2008 4:22 PM PST PHOTOTHERAPY DOC FLOWSHEET RESPONSES [[id number]][ 07/22/2008 Orientation NO Time 4:11 PM MD Orders 06/09/08 Start NBUVB @ 75mj increase 50mj each treatment to a maximum of 1000mj. Two times a week apply sunscreen to face per Dr. Zaragoza Ttl # of Treatments 10 DIAGNOSIS psoriasis Site #1 body Type NBUVB Prescr Dose 475mj Actual Dose 483mj Predict Time 1:35min Actual Time 1:06sec On Stool none New Meds no Sleep OK YES Psoralen Taken? n/a PUVA Med Nausea NA - NOT APPLICABLE Erythema Grade 0 Blisters NO Itching NO Pain 0 MD Notified NA - NO REACTION Goggles YES Oral/Topical Meds NO Suntan Lotion face Shield none Nurse Nani GOYAL Nurse #2 Axel Comments PHOTOTHERAPY DOC FLOWSHEET RESPONSES [[id number]][ 07/18/2008 Orientation NO Time 4:22 PM MD Orders 06/09/08 Start NBUVB @ 75mj increase 50mj each treatment to a maximum of 1000mj. Two times a week apply sunscreen to face per Dr. Zaragoza Ttl # of Treatments 9 DIAGNOSIS psoriasis Site #1 body Type NBUVB Prescr Dose 425mj Actual Dose 430mj Predict Time 1:25min Actual Time 0:58sec On Stool none New Meds no Sleep OK YES Psoralen Taken? n/a PUVA Med Nausea NA - NOT APPLICABLE Erythema Grade 0 Blisters NO Itching NO Pain 0 MD Notified NA - NO REACTION Goggles YES Oral/Topical Meds NO Suntan Lotion face Shield none Nurse Keiko [facility] Nurse #2 Axel Comments documented in this enco unter Miscellaneous Notes Scan - Nicolasa, Faculty - 07/24/2008 12:58 PM PST can - Nicolasa, Faculty - 07/24/2008 11:47 AM PST Electronica ro signed by Linda Corbin In at 07/24/2008 11:47 AM PSTdocumented in this encounter Plan of Treatment Not on filedocumented as of this encounter Visit Diagnoses + + | Diagnosis | + + | Other psoriasis | + + documented in this encounter"
--- OUTSIDE RECORDS SUMMARY | ~2020-04-11 | XMS | Encounter Summary ---
Demographics + + + | Address | [address] | | | [place] [address] | + + + | Home Phone [...] Team Providers + +------+ + | Care Commercial Drone Pilot Name | Role | Phone | + +------+ + | No Pcp Per Patient | PCP | Unavailable | + +------+ + Reason for Visit + +--------+ + | Reason | Onset | Comments | | | Date | | + +--------+ + | Prior Authorization | 06/02/ | enbrel | | Request | 2007 | | + +--------+ + Encounter Details +--------+ + + + + | Date | Type | Department | Care Team | Description | +--------+ + + + + | 06/02/ | Telephone | Dermatology | Jeyson Zaragoza, | Prior Authorization | | 2007 | | Medical at [facility] [address] | MD | Request (enbrel) | | | | [facility] | | | | | | for Health and | | | | | | [facility], [address], | | | | | | [address]th Floor | | | | | | [place], [place] | | | | | | [address] | | | | | | [phone] | | | +--------+ + + + [...] Notes Telephone Encounter - Lakisha Isidro - 06/05/2008 10:42 AM PSTPa form faxed to [facility] Rx: Enbrel Copy placed in pa book elephone Encounter - Lakisha Isidro - 06/02/2008 4:23 PM PSTPa form routed to Dr. Zaragoza to complete Rx: Enbrel elephone Jacqueline Alvarez - 06/02/2008 4:11 PM PSTPa request recvd via fax. Rtd to naldo inbox Rx: Enbrel sureclick 50/mg3ml3.92ml/pkg documented in this encounter Plan of Treatment Not on filedocumented as of this encounter Visit Diagnoses Not on filedocumented in this encounter"
--- OUTSIDE RECORDS SUMMARY | ~2020-04-11 | XMS | Encounter Summary ---
Demographics + + + | Address | [address] | | | [place] [address] | + + + | Home Phone | | + + + | Preferred Language | Unknown | + + + | Marital Status | Single | + + + | Sikhism Affiliation | UNK | + + + [...] Team Providers + +------+ + | Care Sourcing Assistant Name | Role | Phone | [...] | +--------+ + + + + | 11/10/ | Procedure | Dermatology | Nadia De Luna, | Phototherapy (NBUVB) | | 2008 | | Phototherapy at [facility] | MD | | | | | [address] | | | | | | [facility] | | | | | | and [place]q, | | | | | | [facility] | | | | | | [place], [place] | | | | | | [address] | | | | | | [phone] | | | +--------+ + + + [...] encounter Progress Notes Krista Garcia Lpn - 11/10/2008 4:06 PM PDT PHOTOTHERAPY DOC FLOWSHEET RESPONSES [[id number]][ 11/10/2008 Orientation NO Time 3:53 PM MD Orders [id number] Start NBUVB @ 1000mj & increase by [...] Nurse #2 Comments PHOTOTHERAPY DOC FLOWSHEET RESPONSES [3027][ 11/06/2008 Orientation NO Time 4:03 PM MD Orders [id number] Start NBUVB @ 1000mj & increase by [...] MD Nurse #2 Comments documented in this enco unter Plan of Treatment Not on filedocumented as of this encounter Visit Diagnoses + + | Diagnosis | + + | Other psoriasis | + + documented in this encounter"
--- OUTSIDE RECORDS SUMMARY | ~2020-04-11 | XMS | Encounter Summary ---
Demographics + + + | Address | [address] | | | [place] [address] | + + + | Home Phone [...] Team Providers + +------+ + | Care Web Development Consultant Name | Role | Phone | [...] | +--------+ + + + + | 08/26/ | Procedure | Dermatology | Ignacio Reed, | Phototherapy (NBUVB) | | 2008 | | Phototherapy at [facility] | MD [address] | | | | | [address] | [place], [place] | | | | | [facility] | [address] | | | | | and [place], | [phone] | | | | | [facility] | | | | | | [place], [place] | | | | | | [address] | | | | | | [phone] | | | +--------+ + + + [...] this encounter Progress Notes Brandin Lundberg - 08/26/2008 4:18 PM PST PHOTOTHERAPY DOC FLOWSHEET RESPONSES [[id number]][ 08/26/2008 Orientation NO Time 4:08 PM Orders [...] Nurse #2 Comments PHOTOTHERAPY DOC FLOWSHEET RESPONSES [3933][ 08/21/2008 Orientation NO Time 4:15 PM Orders 06/09/08 Start NBUVB @ 75mj increase 50mj each treatment to a maximum of 1000mj. Two times a week apply sunscreen to face per Dr. Zaragoza Ttl # of Treatments 18 DIAGNOSIS psoriasis Site #1 body Type NBUVB Prescr Dose 825mj Actual Dose 827mj Predict Time 2:53min Actual Time 1:55min On Stool none New Meds no Sleep [...]
--- OUTSIDE RECORDS SUMMARY | ~2020-04-11 | XMS | Encounter Summary ---
Demographics + + + | Address | [address] | | | [place] [address] | + + + | Home Phone [...] Team Providers + +------+ + | Care Rn Icu Name | Role | Phone | + [...] | +--------+ + + + + | 07/18/ | Procedure | Dermatology | | Phototherapy (NBUVB) | | 2008 | | Phototherapy at [facility] | | | | | | [address] | | | | | | [facility] | | | | | | and Healing, | | | | | | Building | | | | | | Floor [place], [place] | | | | | | [address] | | | | | | [phone] | | | +--------+ + + + [...] encounter Progress Notes Giselle Ro D - 07/18/2008 4:34 PM PSTFormatting of this note might be different fro m the original. PHOTOTHERAPY DOC FLOWSHEET RESPONSES [[id number]][ 07/18/2008 Orientation NO Time 4:22 PM MD [...] Suntan Lotion face Shield none Nurse Keiko [facility] Nurse #2 Axel Comments PHOTOTHERAPY DOC FLOWSHEET RESPONSES [3612][ 07/15/2008 Orientation NO Time 4:06 PM MD [...] Suntan Lotion face Shield none Nurse Keiko [facility] Nurse #2 Comments documented in this en counter Plan of Treatment Not on filedocumented as of this encounter Visit Diagnoses + + | Diagnosis | + + | Other psoriasis | + + documented in this encounter"
--- OUTSIDE RECORDS SUMMARY | ~2020-04-11 | XMS | Encounter Summary ---
Demographics + + + | Address | [address] | | | [place] [address] | + + + | Home Phone [...] Author + + + | Author | [facility] | + + + | Organization | [facility] | + + + | Address | Unknown | + + + | Phone | Unavailable | + + + Care Team Providers + +------+ + | Care Road Grader Operator Name | Role | Phone | [...] | +--------+ + + + + | 12/07/ | Procedure | Dermatology | Yuniel Fierro, | Phototherapy (NBUVB) | | 2009 | | Phototherapy at [facility] | ,PhD Juan | | | | | [address] | Allergy Asthma | | | | | [facility] | Dermatology [address] | | | | | and Healing, | [facility] | | | | | | [place] [address] | | | | | [place], [place] | [phone] | | | | | [address] | | | | | | [phone] | | | +--------+ + + + [...] encounter Progress Notes Krista Garcia Lpn - 12/07/2009 7:59 AM PDT PHOTOTHERAPY DOC FLOWSHEET RESPONSES [6071][ 12/07/2009 Orientation NO Time 7:52 AM Orders 11/23/09 Start NBUVB @ 400mj increase [...] Nurse #2 Comments PHOTOTHERAPY DOC FLOWSHEET RESPONSES [1567][ 12/04/2009 Orientation NO Time 8:01 AM MD [...] NO Suntan Lotion face Shield none Nurse JRmarck [facility] Nurse #2 Comments documented in this enco unter Plan of Treatment Not on filedocumented as of this encounter Visit Diagnoses + + | Diagnosis | + + | Other psoriasis | + + documented in this encounter"
--- OUTSIDE RECORDS SUMMARY | ~2020-04-11 | XMS | Encounter Summary ---
Demographics + + + | Address | [address] | | | [place] [address] | + + + | Home Phone [...] Author + + + | Author | [facility] | + + + | Organization | [facility] | + + + | Address | Unknown | + + + | Phone | Unavailable | + + + Care Team Providers + +------+ + | Care Brake Press Operator Name | Role | Phone | + +------+ + | No Pcp Per Patient | PCP | Unavailable | + +------+ + Reason for Visit + +--------+ + | Reason | Onset | Comments | | | Date | | + +--------+ + | Phototherapy | 10/11/ | NBUVB | | | 2010 | | + +--------+ + Encounter Details +--------+ + + + + | Date | Type | Department | Care Team | Description | +--------+ + + + + | 10/11/ | Procedure | Dermatology | Yuniel Fierro, | Phototherapy (NBUVB) | | 2010 | | Phototherapy at [facility] | ,PhD Juan | | | | | [address] | Allergy Asthma | | | | | [facility] | Dermatology [address] | | | | | and Healing, | [facility] | | | | | | [place] [address] | | | | | [place], [place] | [phone] | | | | | [address] | | | | | | [phone] | | | +--------+ + + + [...] this encounter Progress Adeline Shultz MA - 10/11/2010 8:29 AM PDTPhototherapy Visit Record: Phototherapy Orientation: NO Time of Treatment: 808 Physician Orders: 09/03/10 start NBUVB @ 400mj increase 50mj each tx to a maximum of 1000mj. Sunscreen on face and pt stand on stool per Dr. Zaragoza Total # of Treatments: 72 DIAGNOSIS: psoriasis Treatment Site #1: body Phototherapy Type: NBUVB Prescr Dose(j or mj)_ _._ _ _: 1000mj Actual Dose(j or mj)_ _._ _ _: 1005mj Predicted Time (min:sec): 4:03min Actual Time (min:sec): 2:26min Dosage on stool: 1005mj Additional Information: New [...] + | PHOTOTHERAPY (UVA, | Routin | 10/11/2010 | Psoriasis | | | UVB, NBUVB) - BACK | e | | | | | OFFICE | | | | | + +--------+ + + + documented in this encounter Visit Diagnoses + + | Diagnosis | + + | Psoriasis Other psoriasis | + + documented in this encounter"
--- OUTSIDE RECORDS SUMMARY | ~2020-04-11 | XMS | Encounter Summary ---
Demographics + + + | Address | [address] | | | [place] [address] | + + + | Home Phone | | + + + | Preferred Language | Unknown | + + + | Marital Status | Single | + + + | Baptist Affiliation | UNK | + + + | Race | White | + + + | Ethnic Group | Not or | + + + Author + + + | Author | [facility] | + + + | Organization | [facility] | + + + | Address | Unknown | + + + | Phone | Unavailable | + + + Care Team Providers + +------+ + | Care Order Picker Name | Role | Phone | + [...] Description | +--------+---------+ + + + | 08/11/ | Office | Dermatology | Jeyson Zaragoza, | Other Psoriasis | | 2008 | Visit | Medical at [facility] [address] | MD | (Primary Dx) | | | | [facility] | | | | | | for Health and | | | | | | [facility] 1, | | | | | | [address]th Floor | | | | | | [place], [place] | | | | | | [address] | | | | | | [phone] | | | +--------+---------+ + + + [...] + + + | Blood Pressure | 112/76 | 08/11/2008 8:30 AM | | | | | PST | | + + + + + | Pulse | 80 | 08/11/2008 8:30 AM | | | | | PST | | + + + + + | Temperature | - | - | | + + + + + | Respiratory Rate | 16 | 08/11/2008 8:30 AM | | | | | PST | | + + + + + | Oxygen Saturation | - | - | | + + + + + | Inhaled Oxygen | - | - | | | Concentration | | | | + + + + + | Weight | 88.5 kg (195 lb 1.6 | 08/11/2008 8:30 AM | | | | oz) | PST | | + + + + + | Height | - | - | | + + + + + | Body Mass Index | 26.65 | 06/02/2008 8:27 AM | | | | | PST | | + + + + + documented in this encounter Progress Notes Jeyson Zaragoza MD - 08/14/2008 3:42 PM PSTI have edited and agree with the resident's n ote. I spent 17 minutes talking to the patient, examining the patient, and going over the t reatment plan. Jeyson Zaragoza M.D. Professor, Department of Dermatology Research Director, [facility] Noe Montano MD - 08/11/2008 8:57 AM PSTCenter Excellence for P[facility] ( [facility]) FOLLOW-UP VISIT S: From previous visit: Walt Cerna is a 37 y.o. male with a history of psoriasi s for 35 years. As a toddler, he had involvement of his scalp and received light therapy, an d during his childhood and adolescence he had persistent knee plaques. In his early 20's, he developed plaques on his elbows, and in his late 20's he started getting Kenalog injections intralesionally. Four to 5 years ago, he started going to tanning beds 3 times weekly; stop ped this 1 year ago. He started taking MTX at age 27, advanced up to 25 mg weekly and had ne tam 100% clearance for 7 years, but then had worsening while still on MTX; had a liver biop sy roughly 2 years ago, which was normal. Winter time is when his psoriasis is at its worst and stress is a significant exacerbating factor. He has been on numerous topical therapies in the past, including corticosteroids, Dovonex, and Tazorac. Now has involvement of knees, shoulders, hips, palms. He was initially interested in Enbrel , but is now hesitant because his father has MS. Since the last visit, he started NB-UVB (BI W, now at 625 mJ/cm2). He initally had a flare, which has been resolving, and he notes that his plaques are thinner and buttermaker continuous churn in color. He was approved for Enbrel, but would rather see use phototherapy alone before starting systemic treatments, given his father's history of MS. He has not been using the Clobex spray on a regular basis due to burning with applica tion. 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 He has not been evaluated by Dr. Duggan. O: - a full skin examination was performed, including scalp, face, neck, bilateral upper and l ower extremities, abdomen, chest, back, buttocks, groin, genitalia, hands, and nails, and th e exam was only notable for the following: * scattered well-demarcated pink thin scaly plaques, approx. 10% BSA, located on the face, elbows, knees, anterior and posterior thighs, buttocks, groin, dorsal hands, lower back (james dence of improvement compared to first visit) * 4/10 fingernails with nail pitting and onycholysis * 2/10 toenails with onycholysis - no evidence of joint erythema, edema, or pain - the patient had a normal mood and affect, and was alert and oriented to person, place, an d time A/P: Severe psoriasis (stable at 10% BSA) with thinner less inflamed plaques now after photother apy - continue phototherapy BIW - max dose 1000 mJ/cm2 - next option would be Enbrel 50 mg SC BIW, possibly in combination with phototherapy; this has been approved by his insurance, however, patient is hesitant due to father's history of MS - Tgel or Tsal shampoo for scalp as needed - con't Clobex spray BID prn - patient not interested in referral to [facility] chamber walker, Dr. Duggan (re-consider in t he future if his knee pain returns) RTC: 3 months Sarah Diggs MD Dermatology Resident, [facility] documented in this encounter Miscellaneous Notes Scan - Other, Faculty - 08/25/2008 12:37 PM PST can - Other, Faculty - 08/22/2008 1:33 PM PST Electronica ro signed by Linda Corbin In at 08/22/2008 1:33 PM PSTdocumented in this encounter Plan of Treatment Not on filedocumented as of this encounter Visit Diagnoses + + | Diagnosis | + + | Other psoriasis - Primary | + + documented in this encounter"
--- OUTSIDE RECORDS SUMMARY | ~2020-04-11 | XMS | Encounter Summary ---
Demographics + + + | Address | [address] | | | [place] [address] | + + + | Home Phone [...] Team Providers + +------+ + | Care Line Mover Name | Role | Phone | + +------+ + | No Pcp Per Patient | PCP | Unavailable | + +------+ + Encounter Details +--------+---------+ + + + | Date | Type | Department | Care Team | Description | +--------+---------+ + + + | 07/30/ | Office | Dermatology | Ignacio Reed, | Other psoriasis | | 2010 | Visit | Medical at [facility] [address] | MD [address] | (Primary Dx) | | | | [address] | [place], [place] | | | | | for Health and | [address] | | | | | [facility], [place] [address], | [phone] | | | | | [address]th Floor | | | | | | [place], [place] | | | | | | [address] | | | | | | [phone] | | | +--------+---------+ + + + [...] documented as of this encounter Progress Notes Ignacio Reed MD - 07/28/2010 1:57 PM PST39 YO man with 36 year Hx of psoriasis. As ch ild had scalp involved & rx with light. In 20's developed plaques on elbows & knees & rx wit h [place] kenalog . Then age 27 began on MTX with clearing for 7 years & then LFT's became abnorm al. rx with many topicals - streroids , dovonex, tazorac. On 06/09 begun on NBUVB up to 1000 mj received 59 Rx - last one 12/10 at 850 mj tiw Here last in psoriasis clinic [facility] with Dr. Zaragoza 03/12 documented in this e ncounter Plan of Treatment Not on filedocumented as of this encounter Visit Diagnoses + + | Diagnosis | + + | Other psoriasis - Primary | + + documented in this encounter"
--- OUTSIDE RECORDS SUMMARY | ~2020-04-11 | XMS | Encounter Summary ---
Demographics + + + | Address | [address] | | | [place] [address] | + + + | Home Phone [...] Author + + + | Author | [facility] | + + + | Organization | [facility] | + + + | Address | Unknown | + + + | Phone | Unavailable | + + + Care Team Providers + +------+ + | Care Rehab Trainer Name | Role | Phone | + [...] + + + + | 11/02/ | Procedure | Dermatology | Nadia De Luna, | Phototherapy (NBUVB) | | 2009 | | Phototherapy at [facility] | MD | | | | | [address] | | | | | | [facility] | | | | | | and [place], | | | | | | [facility] | | | | | | [place], [place] | | | | | | [address] | | | | | | [phone] | | | +--------+ + + + [...] encounter Progress Notes Krista Garcia Lpn - 11/02/2009 8:50 AM PDT PHOTOTHERAPY DOC FLOWSHEET RESPONSES [5746][ 11/02/2009 Orientation NO Time 8:20 AM MD [...] Nurse #2 Comments PHOTOTHERAPY DOC FLOWSHEET RESPONSES [[id number]][ 10/30/2009 Orientation NO Time 4:40 PM MD [...] Suntan Lotion face Shield none Nurse Keiko [facility] Nurse #2 Comments documented in this enco unter Plan of Treatment Not on filedocumented as of this encounter Visit Diagnoses + + | Diagnosis | + + | Other psoriasis | + + documented in this encounter"
--- OUTSIDE RECORDS SUMMARY | ~2020-04-11 | XMS | Encounter Summary ---
Demographics + + + | Address | [address] | | | [place] [address] | + + + | Home Phone | | + + + | Preferred Language | Unknown | + + + | Marital Status | Single | + + + | Jain Affiliation | UNK | + + + [...] Team Providers + +------+ + | Care Program Management Professional Name | Role | Phone | + [...] | +--------+ + + + + | 08/21/ | Procedure | Dermatology | Ignacio Reed, | Phototherapy (NBUVB) | | 2008 | | Phototherapy at [facility] | MD [address] | | | | | [address] | [place], [place] | | | | | [facility] | [address] | | | | | and [address], | [phone] | | | | | [facility] | | | | | | [place], [place] | | | | | | [address] | | | | | | [phone] | | | +--------+ + + + [...] this encounter Progress Notes Brandin Lundberg - 08/21/2008 4:24 PM PST PHOTOTHERAPY DOC FLOWSHEET RESPONSES [[id number]][ 08/21/2008 Orientation NO Time 4:15 PM Orders [...] Nurse #2 Comments PHOTOTHERAPY DOC FLOWSHEET RESPONSES [[id number]][ 08/19/2008 Orientation NO Time 4:01 PM MD [...] @775mj for today only per dr. Reed documented in this encount er Plan of Treatment Not on filedocumented as of this encounter Visit Diagnoses + + | Diagnosis | + + | Other psoriasis | + + documented in this encounter"
--- OUTSIDE RECORDS SUMMARY | ~2020-04-11 | XMS | Encounter Summary ---
Demographics + + + | Address | [address] | | | [place] [address] | + + + | Home Phone [...] Team Providers + +------+ + | Care Loom Fixer Helper Name | Role | Phone | + +------+ + | No Pcp Per Patient | PCP | Unavailable | + +------+ + Reason for Visit + +--------+ + | Reason | Onset | Comments | | | Date | | + +--------+ + | Phototherapy | 11/01/ | NBUVB | | | 2010 | | + +--------+ + Encounter Details +--------+ + + + + | Date | Type | Department | Care Team | Description | +--------+ + + + + | 11/01/ | Procedure | Dermatology | Yuniel Fierro, | Phototherapy (NBUVB) | | 2010 | | Phototherapy at [facility] | ,PhD Juan | | | | | [address] | Allergy Asthma | | | | | [facility] | Dermatology [address] | | | | | and Healing, | [facility] | | | | | | [place] [address] | | | | | [place], [place] | [phone] | | | | | [address] | | | | | | [phone] | | | +--------+ + + + [...] documented as of this encounter Progress Notes Adelnie Pacheco MA - 11/01/2010 11:41 AM PDTPhototherapy Visit Record: Phototherapy Orientation: NO Time of Treatment: 1129 Physician Orders: 11/01/10 start NBUVB @ 900mj increase 50mj each tx to a maximum of 1000mj. Sunscreen on face or brown bag and pt stand on stool per Dr. Zaragoza Total # of Treatments: 74 DIAGNOSIS: psoriasis Treatment Site #1: body Phototherapy Type: NBUVB Prescr Dose(j or mj)_ _._ _ _: 900mj Actual Dose(j or mj)_ _._ _ _: 901mj Predicted Time (min:sec): 3:53min Actual Time (min:sec): 2:17min Dosage on stool: 901mj Additional Information: New meds since last visit: [...] over head instead of sunscreen Nurse: [facility] Nurse #2: pt missed 14 days, new orders decreased by two tx documented in this e ncounter Plan of Treatment + + +--------+ + + | Name | Type | Priori | Associated Diagnoses | Order Schedule | | | | ty | | | + + +--------+ + + | PHOTOTHERAPY (UVA, | Procedures | Routin | Psoriasis | 3 times per week for | | UVB, NBUVB) - BACK | | e | | 40 Occurrences | | OFFICE | | | | starting 11/01/2010 | | | | | | until 11/02/2011, 1 | | | | | | completed | + + +--------+ + + documented as of this encounter Procedures + +--------+ + + + | Procedure Name | Priori | Date/Time | Associated Diagnosis | Comments | | | ty | | | | + +--------+ + + + | PHOTOTHERAPY (UVA, | Routin | 11/01/2010 | Psoriasis | | | UVB, NBUVB) - BACK | e | | | | | OFFICE | | | | | + +--------+ + + + documented in this encounter Visit Diagnoses + + | Diagnosis | + + | Psoriasis - Primary Other psoriasis | + + documented in this encounter"
--- OUTSIDE RECORDS SUMMARY | ~2020-04-11 | XMS | Encounter Summary ---
Demographics + + + | Address | [address] | | | [place] [address] | + + + | Home Phone [...] + + + | Author | [facility] | + + + | Organization | [facility] | + + + | Address | Unknown | + + + | Phone | Unavailable | + + + Care Team Providers + +------+ + | Care Pyridine Recovery Operator Name | Role | Phone | [...] | +--------+ + + + + | 12/25/ | Procedure | Dermatology | Yuniel Fierro, | Phototherapy (NBUVB) | | 2009 | | Phototherapy at [facility] | ,PhD Juan | | | | | [address] | Allergy Asthma | | | | | [facility] | Dermatology [address] | | | | | and Healing, | [facility] | | | | | | [place] [address] | | | | | [place], [place] | [phone] | | | | | [address] | | | | | | [phone] | | | +--------+ + + + [...] this encounter Progress Notes Lakisha Isidro - 12/25/2009 1:46 PM PDT Addended by: LAKISHA ISIDRO on: 12/25/2009 Modules accepted: Orders aLakisha shine - 0 12/25/2009 1:42 PM PDT PHOTOTHERAPY DOC FLOWSHEET RESPONSES [[id number]][ 12/25/2009 Orientation NO Time 1:31 PM MD [...] NO Suntan Lotion face Shield none Nurse Dev Nurse #2 Comments PHOTOTHERAPY DOC FLOWSHEET RESPONSES [[id number]][ 12/18/2009 Orientation NO Time 2:20 PM MD [...] face Shield none Nurse Nurse #2 Comments Pt missed 9 days. treatment held to previous dosage per protocol documented in this enco unter Plan of Treatment Not on filedocumented as of this encounter Visit Diagnoses + + | Diagnosis | + + | Other psoriasis - Primary | + + documented in this encounter"
[~2020-04-11 23:54] MED LIST: KEFLEX500 MG PO
[2020-04-12] MEDS ORDERED: LOSARTAN POTASS50 MG PO (00:05)
[2020-04-12] MEDS ORDERED: METOPROLOL SUCC25 MG PO (00:05)
--- NOTE | 2020-04-12 11:28 | EKG ---
[facility] [address] [facility] [place], [place] [address] Signed Normal sinus rhythm Normal ECG No previous ECGs available Confirmed by NEVILLE MAC MD ([id number]) on 04/12/2020 11:28:14 AM Electronically Signed By: NEVILLE MAC MD 04/12/20 1128 PATIENT NAME: CARMEN ESPINOZA Chloé Electrocardiogram DATE OF : 70 PHYSICIAN: NEVILLE MAC MD REPORT #: [id number] REPORT IS CONFIDENTIAL AND NOT TO BE RELEASED WITHOUT AUTHORIZATION
== END 2020-04-12 00:57 | disposition home or self-care (01) ==
LOC: ED 23:54
DX: I48.91 Unspecified atrial fibrillation (principal); I10 Essential (primary) hypertension; Z79.899 Other long term (current) drug therapy
CPT/HCPCS: 71045; 80053; 83735; 84484; 85025; 93005; 93010; 99285-25; J7030